=== PATIENT | male | born 1960 | race Caucasian/White ===

== ENCOUNTER 2018-09-16 09:23 | Inpatient (IN) | payer MEDICARE ==
--- NOTE | 2018-09-16 10:16 | ED Physician Chart ---
ED Chief Complaint/HPI - Patient Information Date Seen:: 09/16/18 Time Seen:: 09:40 Chief Complaint:: Fall History of Present Illness:: onset this morning of syncope resulting in a fall with pt admitting to hitting his head; no report of H/As, visual or gait changes, S/T, neck pain, C/P, SOB, Abd. Pain, A/N/V/D/C, fever, chills, bleeding, or urinary s/s; pt's last tetanus shot: < 5 years; UTD Allergies:: Allergies Allergy/AdvReac Type Severity Reaction Status Date / Time adhesive tape Allergy Verified 09/16/18 09:38 Vitals:: Vital Signs - 8 hr 09/16/18 09:38 Temp 98 F HR 70 RR 16 BP 115/72 O2 Sat % 93 Historian:: Patient, EMS Review:: Nurse's Note Reviewed, Old Chart Reviewed, EMS run form Reviewed ED Review of Systems - Review of Systems General/Constitutional: No fever, No chills, No weight loss, No weakness, No diaphoresis, No edema, No loss of appetite Skin: No skin lesions, No rash, No bruising Head: No headache, No light-headedness Eyes: No loss of vision, No pain, No diplopia ENT: No earache, No nasal drainage, No sore throat, No tinnitus Neck: No neck pain, No swelling, No thyromegaly, No stiffness, No mass noted Cardio Vascular: No chest pain, No palpitations, No PND, No orthopnea, No edema Pulmonary: No SOB, No cough, No sputum, No wheezing GI: No nausea, No vomiting, No diarrhea, No pain, No melena, No hematochezia, No constipation, No hematemesis G/U: No dysuria, No frequency, No hematuria, No nacturia Musculoskeletal: No bone or joint pain, No back pain, No muscle pain Endocrine: No polyuria, No polydipsia Psychiatric: Prior psych history, Depression, Anxiety, No suicidal ideation, No homicidal ideation, No auditory hallucination, No visual hallucination Hematopoietic: No bruising, No lymphadenopathy Allergic/Immuno: No urticaria, No angioedema Neurological: Syncope, No focal symptoms, No weakness, No paresthesia, No headache, Seizure, Dizziness, Confusion, Vertigo ED Past Medical History - Past Medical History Obtainable: Yes Past Medical History: HTN, Dyslipidemia, PUD/GERD, Seizures, Dementia, Other ( Brain Tumor) Family History: HTN Social History: Non Smoker, No Alcohol, No Drug Use, Single, Care Facility Surgical History: other (Brain Biopsy; Brain Surgery) Psychiatricy History: Bipolar, Dementia Medication: Reviewed Family Medical History - Family Member Mother Living Status: Other Medical History: lupus ED Physical Exam - Physical Examination General/Constitutional: Awake, Well-developed, well-nourished, Alert, No distress, GCS 15, Non-toxic appearing, Ambulatory Head: Atraumatic Eyes: Lids, conjuctiva normal, PERRL, EOMI Skin: Nl inspection, No rash, No skin lesions, No ecchymosis, Well hydrated, No lymphadenopathy ENMT: External ears, nose nl, TM canals nl, Nasal exam nl, Lips, teeth, gums nl , Oropharynx nl, Tonsils nl Neck: Nontender, Full ROM w/o pain, No JVD, No nuchal rigidity, No bruit, No mass, No stridor Respiratory: Nl effort/Exclusion, Clear to Auscultation, No Wheeze/Rhonchi/Rales Cardio Vascular: RRR, No murmur, gallop, rubs, NL S1 S2, Carotid/Femoral/Distal pulses equal bilaterally GI: No tenderness/rebounding/guarding, No organomegaly, No hernia, Normal BS's, Nondistended, No mass/bruits, No McBurney tenderness Other GI comments:: no pulsatile masses : No CVA tenderness Extremities: No tenderness or effusion, Full ROM, normal strength in all extremities, No edema, Normal digits & nails Neuro/Psych: Alert/oriented, DTR's symmetric, Normal sensory exam, Normal motor strength, Judgement/insight normal, Mood normal, Normal gait, No focal deficits Misc: Normal back, No paraspinal tenderness ED Labs/Radiology/EKG Results - Lab Results Comments:: Reviewed - Radiology Results Comments:: ? Brain Mass Effect - EKG Interpretations EKG Time:: 10:05 Rate & Rhythm: 64; NSR Comments:: non-specific st-t changes ED Septic Shock - . Is Septic Shock (SBP<90, OR Lactate>4 mmol\L) present?: No - <6hrs of presentation: Vital Signs: Vital Signs - 8 hr 09/16/18 09:38 Temp 98 F HR 70 RR 16 BP 115/72 O2 Sat % 93 ED Reassessment (Disposition) - Reassessment Reassessment Condition:: Improved - Diagnosis Diagnosis:: Syncope; Fall; Hyponatremia; Brain Cancer; Hypoalbuminemia; Dehydration; Intractable Pain; TIA; Cardiac Arrythmias; - Aftercare/Follow up Instructions Aftercare/Follow-Up Instructions:: Counseled pt regarding lab results/diagnosis & need follow up, Counseled pt & family regarding lab results/diagnosis & need follow up - Patient Disposition Discharge/Transfer:: Acute Care w/in this hosp Accepting Physician:: Dr. Ko Time Called:: 1130 Time Responded:: 11:30 Admitted to:: Telemetry Spoke to:: Dr. Ko Admitting Medical Physician:: Dr. Ko Condition at Disposition:: Stable, Improved
[2018-09-16 10:20] LABS: INR 0.95 (0.5-1.4); PROTHROMBIN TIME (TEST) 9.9 SECONDS (9.5-11.5)
[2018-09-16 10:24] LABS: ALB/GLOB RATIO 1.3 (1.0-1.8); ALBUMIN 3.8 gm/dL (4.2-5.5); ALKALINE PHOSPHATASE 62 U/L (34-104); ANION GAP 10.5 (7.0-16.0); BILIRUBIN,TOTAL 0.7 mg/dL (0.3-1.0); BUN - UREA NITROGEN 17 mg/dL (7-25); CALCIUM SERUM 9.7 mg/dL (8.6-10.3); CARBON DIOXIDE 23.7 mEq/L (21.0-31.0); CHLORIDE 105 mEq/L (98-107); CHOLESTEROL 152 mg/dL (<200); CREATININE - SERUM 0.8 mg/dL (0.7-1.3); CREATININE KINASE 18 U/L (30-223); GFR AFRICAN-AMERICAN > 60.0 ml/min (>90); GFR NON AFRICAN-AMERICAN > 60.0 ml/min; GLUCOSE 100 mg/dL (70-105); HDL -HIGH DENSITY LIPOPROTEIN 37 mg/dL (23-92); POTASSIUM SERUM 4.2 mEq/L (3.5-5.1); SGOT 10 U/L (13-39); SGPT/ALT 8 U/L (7-52); SODIUM SERUM 135 mEq/L (136-145); TOTAL PROTEIN,SERUM 6.7 gm/dL (6.0-8.3); TRIGLYCERIDES 156 mg/dL (<150)
[2018-09-16 10:46] LABS: % BASOPHILS 0.2 % (0.0-2.0); % EOSINOPHILS 4.3 % (0.0-5.0); % LYMPHOCYTES 16.3 % (20.0-50.0); % MONOCYTES 7.6 % (2.0-10.0); % NEUTROPHILS 71.6 % (40.0-80.0); EOSINOPHILE ABSOLUTE 0.3 Th/cmm (0.1-0.4); HEMATOCRIT 40.3 % (41.0-60); HEMOGLOBIN 13.3 gm/dL (12-16); LYMPHOCYTE ABSOLUTE 1.3 Th/cmm (1.5-3.0); MEAN CELL VOLUME 89.2 fl (80-99); MEAN CORPUSCULAR HEMOGLOBIN 29.5 pg (26.0-30.0); MEAN CORPUSCULAR HGB CONC 33.1 pg (28.0-36.0); MEAN PLATELET VOLUME 8.3 fl; MONOCYTE ABSOLUTE 0.6 Th/cmm (0.3-1.0); NEUTROPHILE ABSOLUTE 5.9 Th/cmm (1.8-8.0); PLATELET COUNT 260 Th/cmm (150-400); RED BLOOD COUNT 4.52 Mil/cmm (4.30-5.70); RED CELL DISTRIBUTION WIDTH 12.4 % (11.5-20.0); WHITE BLOOD COUNT 8.1 Th/cmm (4.8-10.8)
--- NOTE | 2018-09-16 10:51 | Diagnostic Imaging Report ---
CHEST X-RAY: AP view INDICATION: pain COMPARISON: None FINDINGS: Postsurgical changes of the right clavicle are noted. Additional old left clavicular fracture is noted. There are multiple old right rib fractures. No evidence of pneumothorax. The left costophrenic angle is incompletely visualized. Bibasal atelectasis is noted with no focal consolidation or effusions. Heart size normal. Atherosclerosis is noted. IMPRESSION: Bibasal atelectatic changes. No focal consolidation identified. Atherosclerotic vascular disease. Old traumatic changes as above. No evidence of pneumothorax.
--- NOTE | 2018-09-16 10:54 | Diagnostic Imaging Report ---
Head CT without intravenous contrast Indication: Trauma Comparison: None Technique: Axial images were obtained from the vertex to the skull base without IV contrast. Coronal reconstructions were made. Total DLP: 692, CTDI39.2 FINDINGS: Images of the brain obtained without contrast demonstrate large area of ill-defined edema throughout the right basal ganglia region extending to the right temporal region with low attenuation changes and marked compression of the right lateral ventricle and 4 mm right to left midline shift. No gross acute hemorrhage identified. There is evidence of previous right frontal craniotomy. No skull fracture or focal soft tissue swelling. IMPRESSION: Large low-attenuation seen throughout the right basal ganglia extending to right temporal region with associated mass effect and vasogenic edema. There is also compression of the third ventricle with 4 mm right to left midline shift. Additional postsurgical changes right frontal lobe are noted. Please correlate with patient's clinical and surgical history as this be due to underlying occult mass lesion, possible neoplasm. Other etiologies is an abscess is less likely but cannot be excluded. A recent infarction can also not be excluded. If no recent MRI has been performed for follow-up MRI without and with IV contrast is recommended for further assessment. No gross acute hemorrhage identified.
--- NOTE | 2018-09-16 10:58 | Diagnostic Imaging Report ---
CT cervical spine without IV contrast HISTORY: Trauma COMPARISON: None Technique: Axial images were obtained from the skull base to the upper thoracic spine without IV contrast. Multiplanar reconstructions were made. Total DLP: 754, CTDI31.1 FINDINGS: There is straightening of the cervical lordosis which may be due to positioning or muscle spasm. There is diffuse degenerative changes of the atlantodental articulation with an ossicle seen superiorly measuring 4 mm. There is subtle lucency seen along the anterior aspect of the dens inferior to the C1 arch probably related to degenerative etiology. A previous, possible chronic nondisplaced fractures less likely. Otherwise no acute fracture is identified. Moderate to advanced disc space loss of height of C5/C6 is seen and moderate disc space loss of height of C6/C7 is noted. No prevertebral soft tissue swelling. The visualized lung apices are clear. IMPRESSION: Slight irregularity along the anterior aspect of the dens inferior to the C1 arch probably related to degenerative or less likely traumatic, possibly old traumatic etiology. Please correlate with clinical findings and old exams. Otherwise no evidence of acute fracture or subluxation Degenerative changes as detailed above. Straightening of the cervical lordosis which may be due to positioning versus muscle spasm.
[2018-09-16] MEDS ORDERED: Hydrocodone/APAP 5mg/325mg Tab PO ONE (11:19)
[2018-09-16] MEDS ORDERED: APAP/Oxycodone 5/325mg Tab ONE (11:25)
[2018-09-16] MEDS ORDERED: Morphine Sulfate 2 mg/mL 1mL Syr IM PRN ×2 (18:04→18:05)
[2018-09-16 18:18] VITALS: BP 108/49
[2018-09-16] MEDS ORDERED: Morphine Sulfate 4 mg/mL 1mL Syr IVP PRN (19:23)
[2018-09-16] MEDS: Morphine Sulfate 4 mg/mL 1mL Syr IVP PRN (20:11)
[2018-09-16] MEDS ORDERED: HYPROMELLOSE OP PRN (22:41)
[2018-09-16] MEDS ORDERED: DEXTRAN OP PRN (22:41)
[2018-09-16] MEDS ORDERED: [UNRECOGNIZED DRUG - OTHER] OP PRN (22:41)
[2018-09-16] MEDS ORDERED: BISACODYL 10 MG RC PRN (22:41)
--- NOTE | 2018-09-16 22:58 | History & Physical ---
ADMIT DATE: 09/16/2018 HISTORY OF PRESENT ILLNESS: The patient was admitted today with a history of onset of syncope, history of fall, hitting his head. Reported no headache, no fever, no chills, no rigors. His chart was reviewed. Head examination normal. History of hypertension, diabetes, history of hyperlipidemia, seizure, dementia, brain tumor. Biopsies, no results yet. PHYSICAL EXAMINATION: GENERAL: The patient awake, alert, well-developed, well-nourished male patient. VITAL SIGNS: Noted. HEAD: Normal. ENT: Normal. NECK: Supple, nontender. LUNGS: Clear. CARDIOVASCULAR SYSTEM: S1, S2 heard. ABDOMEN: Soft. CAT scan shows mass effect. DIAGNOSES: Brain tumor with mass effect, syncopal episode, rule out cardiac arrhythmia, history of hypertension, history of hyperlipidemia and history of seizures, history of dementia, peptic ulcer disease. PLAN: The patient will be admitted and I will go ahead and treat his hyponatremia, hypoalbuminemia and dehydration and will have neurologist, Dr. Costello see the patient and also have Dr. Donohue see the patient and I will follow the patient closely. JOB# [id number]
[2018-09-17] MEDS: Morphine Sulfate 4 mg/mL 1mL Syr IVP PRN ×3 (00:18→10:36)
[2018-09-17 06:23] LABS: % BASOPHILS 0.4 % (0.0-2.0); % EOSINOPHILS 4.7 % (0.0-5.0); % LYMPHOCYTES 18.5 % (20.0-50.0); % MONOCYTES 8.2 % (2.0-10.0); % NEUTROPHILS 68.2 % (40.0-80.0); EOSINOPHILE ABSOLUTE 0.5 Th/cmm (0.1-0.4); HEMOGLOBIN 13.8 gm/dL (12-16); LYMPHOCYTE ABSOLUTE 1.9 Th/cmm (1.5-3.0); MEAN CELL VOLUME 88.8 fl (80-99); MEAN CORPUSCULAR HEMOGLOBIN 29.8 pg (26.0-30.0); MEAN CORPUSCULAR HGB CONC 33.5 pg (28.0-36.0); MONOCYTE ABSOLUTE 0.8 Th/cmm (0.3-1.0); NEUTROPHILE ABSOLUTE 6.9 Th/cmm (1.8-8.0); PLATELET COUNT 288 Th/cmm (150-400); RED BLOOD COUNT 4.62 Mil/cmm (4.30-5.70); RED CELL DISTRIBUTION WIDTH 12.4 % (11.5-20.0); WHITE BLOOD COUNT 10.1 Th/cmm (4.8-10.8)
[2018-09-17 06:37] LABS: BUN - UREA NITROGEN 17 mg/dL (7-25); CALCIUM SERUM 9.8 mg/dL (8.6-10.3); CARBON DIOXIDE 24.9 mEq/L (21.0-31.0); CHLORIDE 103 mEq/L (98-107); CREATININE - SERUM 0.7 mg/dL (0.7-1.3); GFR AFRICAN-AMERICAN > 60.0 ml/min (>90); GFR NON AFRICAN-AMERICAN > 60.0 ml/min; GLUCOSE 109 mg/dL (70-105); POTASSIUM SERUM 3.9 mEq/L (3.5-5.1); SODIUM SERUM 137 mEq/L (136-145)
[2018-09-17] MEDS ORDERED: Influenza Vaccine (5 yr & older) 0.5 ml Syr IM ONE (09:00)
[2018-09-17] MEDS ORDERED: CYCLOBENZAPRINE HCL 10 MG PO SCH (09:00)
[2018-09-17] MEDS ORDERED: Pneumococcal Vaccine 0.5 mL Vial IM ONE (09:00)
[2018-09-17] MEDS: Dexamethasone Sodium Phos 4 mg/mL Vial IVP SCH ×3 (12:47→23:27)
--- NOTE | 2018-09-17 13:35 | History & Physical ---
ADMIT DATE: 09/17/2018 HEMATOLOGY/ONCOLOGY CONSULTATION REFERRED BY: Dr. Ko. REASON FOR CONSULTATION: Brain tumor. HISTORY OF PRESENT ILLNESS: The patient is a 57-year-old male who suffered a fall and presented to the Emergency Room. CT scan of the head showed large low attenuation area throughout the basal ganglia with right to left midline shift raising suspicion of underlying tumor. Apparently, the patient was diagnosed with a brain tumor around after he suffered left-sided weakness and imaging confirmed the presence of brain tumor. He underwent biopsy from brain tumor about 8 days ago in [place] and they came over to [facility] after that. The pathology from the biopsy is not available. PAST MEDICAL HISTORY: Hypertension, diabetes, dyslipidemia, seizure, psych disorder. PAST SURGICAL HISTORY: Low back surgery. MEDICATIONS: Reviewed. He is currently on Flexeril, Depakote, lithium, morphine, Zofran, and oral Decadron. FAMILY HISTORY: No malignancy. PHYSICAL EXAMINATION: GENERAL: The patient is awake and alert. VITAL SIGNS: Stable. HEENT: Left facial weakness. NECK: No lymphadenopathy. CHEST: Good air entry bilaterally. ABDOMEN: Soft. No palpable masses. EXTREMITIES: Weakness in both left upper and left lower extremity. NERVOUS SYSTEM: Left upper extremity, unable to move at all. Left lower extremity, muscle strength 3/5 with good muscle strength in the right side. LABORATORY DATA: Creatinine 0.7. Liver functions normal. CBC and coagulation panel unremarkable. CT scan of the head as mentioned above. ASSESSMENT: Brain tumor with midline shift. I will change the Decadron to IV every [address] scan of the chest, abdomen and pelvis looking for possible primary lesion and the pathology from [place] on brain tumor biopsy will be retrieved before further decisions. The patient will be seen by the neurologist and he may need an MRI of the brain. Thank you Dr. Ko for the opportunity to participate in the care of this interesting case. JOB# [id number]
[2018-09-17] MEDS ORDERED: IOHEXOL 300mgI/mL 100 ML VIAL IVP ONE (14:22)
--- NOTE | 2018-09-17 15:19 | Consultation ---
DATE OF CONSULTATION: 09/17/[address] Ko. HISTORY OF PRESENT ILLNESS: This 57-year-old male patient who had a fall. Following this, the patient was brought to the Emergency Room with syncope. The patient had a CT scan. The patient was found to have brain tumor. Following this, the patient is admitted. PAST MEDICAL HISTORY: CVA with left-sided weakness, brain tumor, biopsy done report not available, hypertension, diabetes mellitus type 2, hyperlipidemia, seizure disorder, and syncope. FAMILY HISTORY: Unremarkable. SOCIAL HISTORY: No history of smoking, alcohol abuse. ALLERGIES: None. PHYSICAL EXAMINATION: VITAL SIGNS: Blood pressure 130/80, pulse 70, and respirations 20. HEAD: Normocephalic. No lumps or bumps. EYES: Pupils equal, reactive to light. Fundi show AV nicking, sclerae white, conjunctivae pink. NECK: Carotid 2+. Normal upstroke. JVD flat. Thyroid not palpable. Lymph nodes not palpable. CHEST: Shows increased AP diameter. No kyphosis, scoliosis. LUNGS: Bilateral bronchovesicular breath sounds. HEART: PMI fifth intercostal space with lateral to midclavicular line. S1, S2. No S3, S4. CENTRAL NERVOUS SYSTEM: The patient has left hemiplegia. CLINICAL IMPRESSION: Syncope, etiology unknown; brain tumor with left side hemiplegia; hypertension; diabetes mellitus type 2; hyperlipidemia; and seizure disorder. PLAN: Admit the patient. We will repeat CT scan. Have Oncology evaluation. JOB# [id number]
[2018-09-17] MEDS: Morphine Sulfate 2 mg/mL 1mL Syr IVP PRN ×2 (16:05→21:03)
[2018-09-18] MEDS: Morphine Sulfate 2 mg/mL 1mL Syr IVP PRN ×5 (02:36→21:48)
[2018-09-18] MEDS: Dexamethasone Sodium Phos 4 mg/mL Vial IVP SCH ×3 (05:25→17:36)
[2018-09-18] MEDS ORDERED: IOHEXOL 300mgI/mL 100 ML VIAL ONE (09:58)
--- NOTE | 2018-09-18 12:55 | Diagnostic Imaging Report ---
CT scan of the chest with intravenous contrast HISTORY: Neoplasm, metastatic disease Total DLP equals 333 CTDI equals 8.7 Following administration of intravenous contrast, axial sections were obtained from a level above the clavicles down to level below the diaphragm. The heart size is normal. No abnormal mediastinal masses are seen. No abnormal hilar masses. No abnormal focal pulmonary parenchymal masses or nodules. Mild nonspecific linear densities noted in the lower lobes most likely related to scarring. Minimal pleural thickening is noted in the right and left lower hemithoracic areas. No free pleural fluid. Surgical changes noted about the right clavicle. IMPRESSION: 1. No acute abnormalities 2. No evidence of metastatic disease.
--- NOTE | 2018-09-18 12:57 | Diagnostic Imaging Report ---
CT scan abdomen and pelvis with intravenous contrast HISTORY: Neoplasm, metastatic disease Total DLP equals 905 CTDI equals 13.6 Following administration of intravenous contrast, axial sections were obtained from the xiphoid process down to the pubic symphysis. The liver exhibits a normal size with a homogeneous parenchyma. No focal lesions. The spleen appears normal. No focal abnormality seen within the pancreas. No significant focal renal lesions. The adrenal glands appear normal bilaterally. The exam of the pelvis is compromised due to extensive artifact associated with metallic surgical hardware within the lumbar spine. No definite abnormal masses or abnormal fluid collections. Artifact associated with the left hip arthroplasty also noted. IMPRESSION: 1. Somewhat limited exam due to artifact associated with surgical hardware within the lumbar spine and a left hip arthroplasty 2. No acute abnormalities 3. No abnormal soft tissue masses or other evidence of neoplastic involvement.
--- NOTE | 2018-09-18 15:18 | Internal Medicine Prog Note ---
Internal Medicine Subjective - Subjective Patient seen and examined:: chart reviewed Patient is:: other (awake , patient found to have a brain tumor) Internal Medicine Objective - Results Result Diagrams: 09/17/18 06:00 09/17/18 06:00 Recent Labs: Laboratory Last Values WBC 10.1 Th/cmm (4.8-10.8) 09/17/18 06:00 RBC 4.62 Mil/cmm (4.30-5.70) 09/17/18 06:00 Hgb 13.8 gm/dL (12-16) 09/17/18 06:00 Hct 41.0 % (41.0-60) 09/17/18 06:00 MCV 88.8 fl (80-99) 09/17/18 06:00 MCH 29.8 pg (26.0-30.0) 09/17/18 06:00 MCHC Differential 33.5 pg (28.0-36.0) 09/17/18 06:00 RDW 12.4 % (11.5-20.0) 09/17/18 06:00 Plt Count 288 Th/cmm (150-400) 09/17/18 06:00 MPV 8.0 fl 09/17/18 06:00 Neutrophils % 68.2 % (40.0-80.0) 09/17/18 06:00 Lymphocytes % 18.5 % (20.0-50.0) L 09/17/18 06:00 Monocytes % 8.2 % (2.0-10.0) 09/17/18 06:00 Eosinophils % 4.7 % (0.0-5.0) 09/17/18 06:00 Basophils % 0.4 % (0.0-2.0) 09/17/18 06:00 PT 9.9 SECONDS (9.5-11.5) 09/16/18 10:00 INR 0.95 (0.5-1.4) 09/16/18 10:00 Sodium 137 mEq/L (136-145) 09/17/18 06:00 Potassium 3.9 mEq/L (3.5-5.1) 09/17/18 06:00 Chloride 103 mEq/L (98-107) 09/17/18 06:00 Carbon Dioxide 24.9 mEq/L (21.0-31.0) 09/17/18 06:00 Anion Gap 13.0 (7.0-16.0) 09/17/18 06:00 BUN 17 mg/dL (7-25) 09/17/18 06:00 Creatinine 0.7 mg/dL (0.7-1.3) 09/17/18 06:00 Est GFR ( Amer) > 60.0 ml/min (>90) 09/17/18 06:00 Est GFR (Non-Af Amer) > 60.0 ml/min 09/17/18 06:00 BUN/Creatinine Ratio 24.3 09/17/18 06:00 Glucose 109 mg/dL (70-105) H 09/17/18 06:00 Calcium 9.8 mg/dL (8.6-10.3) 09/17/18 06:00 Total Bilirubin 0.7 mg/dL (0.3-1.0) 09/16/18 10:00 AST 10 U/L (13-39) L 09/16/18 10:00 ALT 8 U/L (7-52) 09/16/18 10:00 Alkaline Phosphatase 62 U/L (34-104) 09/16/18 10:00 Creatine Kinase 18 U/L (30-223) L 09/16/18 10:00 Troponin I 0.01 ng/mL (0.01-0.05) 09/16/18 10:00 B-Natriuretic Peptide 5.2 pg/mL (5.0-100.0) 09/16/18 10:00 Total Protein 6.7 gm/dL (6.0-8.3) 09/16/18 10:00 Albumin 3.8 gm/dL (4.2-5.5) L 09/16/18 10:00 Globulin 2.9 gm/dL 09/16/18 10:00 Albumin/Globulin Ratio 1.3 (1.0-1.8) 09/16/18 10:00 Triglycerides 156 mg/dL (<150) H 09/16/18 10:00 Cholesterol 152 mg/dL (<200) 09/16/18 10:00 LDL Cholesterol Direct 96 mg/dL (75-193) 09/16/18 10:00 HDL Cholesterol 37 mg/dL (23-92) 09/16/18 10:00 Valproic Acid < 10.0 ug/mL (50.0-100.0) L 09/16/18 10:00 - Physical Exam Vitals and I&O: Vital Signs Temp 97.8 F 09/18/18 12:00 Pulse 75 09/18/18 12:00 Resp 20 09/18/18 12:00 BP 130/75 09/18/18 12:00 Pulse Ox 97 09/18/18 12:00 Intake & Output 09/17/18 09/18/18 09/18/18 18:59 06:59 18:59 Intake Total 800 500 Balance 800 500 Weight (lbs) 84.368 kg 84.368 kg Intake: Oral 800 500 Other: # Voids 3 2 # Bowel Movements 0 0 Weight Source Bedscale Bedscale Active Medications: Current Medications Aripiprazole (Abilify) 10 mg PO HS [facility]; Protocol Stop: 11/17/18 20:59 Bisacodyl (Dulcolax 10 Mg Supp) 10 mg RC DAILY PRN PRN Reason: Constipation Stop: 11/16/18 07:46 Cyclobenzaprine HCl (Flexeril) 10 mg PO TID [facility] Stop: 11/16/18 08:59 Last Admin: 09/18/18 14:17 Dose: 10 mg Dexamethasone Sodium Phosphate (Decadron) 4 mg IVP Q6HR [facility] Stop: 11/16/18 11:59 Last Admin: 09/18/18 12:48 Dose: 4 mg Divalproex Sodium (Depakote Er) 1,500 mg PO HS [facility]; Protocol Stop: 11/15/18 21:49 Last Admin: 09/17/18 21:02 Dose: 1,500 mg Levetiracetam (Keppra) 500 mg PO BID [facility] Stop: 11/17/18 08:59 Last Admin: 09/18/18 08:41 Dose: 500 mg [place] Carbonate (Eskalith) 600 mg PO HS [facility]; Protocol Stop: 11/15/18 21:59 Last Admin: 09/17/18 21:02 Dose: 600 mg Morphine Sulfate (Morphine) 2 mg IVP Q4HR PRN PRN Reason: Pain (Severe) Stop: 11/15/18 18:04 Last Admin: 09/18/18 12:49 Dose: 2 mg Morphine Sulfate (Morphine) 1 mg IVP Q4HR PRN PRN Reason: Pain (Moderate) Stop: 11/15/18 18:03 Ondansetron HCl (Zofran) 4 mg IV Q6H PRN PRN Reason: Nausea / Vomiting Stop: 11/15/18 18:05 Pneumococcal Polyvalent Vaccine (Pneumovax) 0.5 ml IM .ONCE ONE Stop: 09/19/18 09:01 Temazepam (Restoril) 15 mg PO HS PRN; Protocol PRN Reason: Insomnia Stop: 11/16/18 11:11 Last Admin: 09/17/18 23:27 Dose: 15 mg General: alert HEENT: NC/AT Neck: Supple Lungs: CTAB Cardiovascular: RRR, Normal S1, Normal S2 Abdomen: soft, non-tender Extremities: clear Neurological: no change Internal Medicine Assmt/Plan - Assessment Assessment: brain tumor with mass effect syncopal episode h/o htn h/o hyperlipidemia h/o seizures h/o dementia h/o peptic ulcer disease - Plan Plan: as per order sheet
--- NOTE | 2018-09-18 15:20 | Consultation ---
DATE OF CONSULTATION: 09/17/2018 HISTORY OF PRESENT ILLNESS: The patient is a 57-year-old, in a [facility], apparently had episode of syncope. He was brought to the Emergency Room to be admitted. The patient gives a history that he is from [place]. There, the patient had weakness in left arm and leg, more in the arm. Workup showed that he had a mass in the right side. Biopsy was done and does not know what the biopsy showed. The patient then came down here. PAST MEDICAL HISTORY: Hypertension, dyslipidemia, questionable brain tumor, seizures. The patient on medication. No seizures while here. History of bipolar. PAST SURGICAL HISTORY: The patient had biopsy of the brain. The patient had no other recent surgery. MEDICATIONS: Flexeril, Depakote 1500 at bedtime, lithium, morphine, temazepam, and had been on Decadron, held. REVIEW OF SYSTEMS: A 12-point negative except for above. PHYSICAL EXAMINATION: VITAL SIGNS: Temperature 97.9, blood pressure 110/65, and pulse is 60. NECK: Supple. No bruits. HEART: Sounds S1, S2. LUNGS: Clear. NEUROLOGIC: The patient is lying in bed. He is awake, alert, yet he answers questions. His speech is slightly dysarthric. He has a left visual field defect, left-sided facial weakness. MOTOR: Really no movement of the left arm. He will move the left leg, but weaker than the right. Reflexes reduced in the left. The patient has previous back surgery scar. INVESTIGATIONS: CT scan of the head shows abnormality in the right basal ganglia, right temporal region with edema. Compression of the third ventricle with 4 mm right to left shift. The patient's CT scan of the cervical spine, abnormality along the anterior aspect of the dense inferior to the C1 arch. No definite fracture, but cannot rule out, will need an MRI. LABORATORY DATA: WBC 10.1, hemoglobin 13.8, and platelets normal. Glucose 109. IMPRESSION: 1. Fall, syncope, no definite seizure. The patient has risk of seizure. 2. Brain tumor, etiology unknown. Need to get biopsy from [place]. 3. Normal spine CT. 4. History of hypertension. 5. Diabetes. 6. Dyslipidemia. 7. History of seizure. 8. Bipolar disorder. 9. Previous back surgery. PLAN: IV Decadron 4 mg q. 8 hours . The patient's MRI brain with contrast. MRI cervical spine. The patient needs to be transferred to the facility, where the patient will have neurosurgical services. JOB# [id number]
--- NOTE | 2018-09-18 15:28 | General Progress Note ---
Subjective - Review of Systems Service Date: 09/18/18 Subjective: NO SZ . headache unchanged Objective - Results Result Diagrams: 09/17/18 06:00 09/17/18 06:00 Recent Labs: Laboratory Last Values WBC 10.1 Th/cmm (4.8-10.8) 09/17/18 06:00 RBC 4.62 Mil/cmm (4.30-5.70) 09/17/18 06:00 Hgb 13.8 gm/dL (12-16) 09/17/18 06:00 Hct 41.0 % (41.0-60) 09/17/18 06:00 MCV 88.8 fl (80-99) 09/17/18 06:00 MCH 29.8 pg (26.0-30.0) 09/17/18 06:00 MCHC Differential 33.5 pg (28.0-36.0) 09/17/18 06:00 RDW 12.4 % (11.5-20.0) 09/17/18 06:00 Plt Count 288 Th/cmm (150-400) 09/17/18 06:00 MPV 8.0 fl 09/17/18 06:00 Neutrophils % 68.2 % (40.0-80.0) 09/17/18 06:00 Lymphocytes % 18.5 % (20.0-50.0) L 09/17/18 06:00 Monocytes % 8.2 % (2.0-10.0) 09/17/18 06:00 Eosinophils % 4.7 % (0.0-5.0) 09/17/18 06:00 Basophils % 0.4 % (0.0-2.0) 09/17/18 06:00 PT 9.9 SECONDS (9.5-11.5) 09/16/18 10:00 INR 0.95 (0.5-1.4) 09/16/18 10:00 Sodium 137 mEq/L (136-145) 09/17/18 06:00 Potassium 3.9 mEq/L (3.5-5.1) 09/17/18 06:00 Chloride 103 mEq/L (98-107) 09/17/18 06:00 Carbon Dioxide 24.9 mEq/L (21.0-31.0) 09/17/18 06:00 Anion Gap 13.0 (7.0-16.0) 09/17/18 06:00 BUN 17 mg/dL (7-25) 09/17/18 06:00 Creatinine 0.7 mg/dL (0.7-1.3) 09/17/18 06:00 Est GFR ( Amer) > 60.0 ml/min (>90) 09/17/18 06:00 Est GFR (Non-Af Amer) > 60.0 ml/min 09/17/18 06:00 BUN/Creatinine Ratio 24.3 09/17/18 06:00 Glucose 109 mg/dL (70-105) H 09/17/18 06:00 Calcium 9.8 mg/dL (8.6-10.3) 09/17/18 06:00 Total Bilirubin 0.7 mg/dL (0.3-1.0) 09/16/18 10:00 AST 10 U/L (13-39) L 09/16/18 10:00 ALT 8 U/L (7-52) 09/16/18 10:00 Alkaline Phosphatase 62 U/L (34-104) 09/16/18 10:00 Creatine Kinase 18 U/L (30-223) L 09/16/18 10:00 Troponin I 0.01 ng/mL (0.01-0.05) 09/16/18 10:00 B-Natriuretic Peptide 5.2 pg/mL (5.0-100.0) 09/16/18 10:00 Total Protein 6.7 gm/dL (6.0-8.3) 09/16/18 10:00 Albumin 3.8 gm/dL (4.2-5.5) L 09/16/18 10:00 Globulin 2.9 gm/dL 09/16/18 10:00 Albumin/Globulin Ratio 1.3 (1.0-1.8) 09/16/18 10:00 Triglycerides 156 mg/dL (<150) H 09/16/18 10:00 Cholesterol 152 mg/dL (<200) 09/16/18 10:00 LDL Cholesterol Direct 96 mg/dL (75-193) 09/16/18 10:00 HDL Cholesterol 37 mg/dL (23-92) 09/16/18 10:00 Valproic Acid < 10.0 ug/mL (50.0-100.0) L 09/16/18 10:00 - Physical Exam Vitals and I&O: Vital Signs Temp 97.8 F 09/18/18 12:00 Pulse 75 09/18/18 12:00 Resp 20 09/18/18 12:00 BP 130/75 09/18/18 12:00 Pulse Ox 97 09/18/18 12:00 Intake & Output 09/17/18 09/18/18 09/18/18 18:59 06:59 18:59 Intake Total 800 500 Balance 800 500 Weight (lbs) 84.368 kg 84.368 kg Intake: Oral 800 500 Other: # Voids 3 2 # Bowel Movements 0 0 Weight Source Bedscale Bedscale Active Medications: Current Medications Aripiprazole (Abilify) 10 mg PO HS [facility]; Protocol Stop: 11/17/18 20:59 Bisacodyl (Dulcolax 10 Mg Supp) 10 mg RC DAILY PRN PRN Reason: Constipation Stop: 11/16/18 07:46 Cyclobenzaprine HCl (Flexeril) 10 mg PO TID [facility] Stop: 11/16/18 08:59 Last Admin: 09/18/18 14:17 Dose: 10 mg Dexamethasone Sodium Phosphate (Decadron) 4 mg IVP Q6HR [facility] Stop: 11/16/18 11:59 Last Admin: 09/18/18 12:48 Dose: 4 mg Divalproex Sodium (Depakote Er) 1,500 mg PO HS [facility]; Protocol Stop: 11/15/18 21:49 Last Admin: 09/17/18 21:02 Dose: 1,500 mg Levetiracetam (Keppra) 500 mg PO BID [facility] Stop: 11/17/18 08:59 Last Admin: 09/18/18 08:41 Dose: 500 mg [place] Carbonate (Eskalith) 600 mg PO HS [facility]; Protocol Stop: 11/15/18 21:59 Last Admin: 09/17/18 21:02 Dose: 600 mg Morphine Sulfate (Morphine) 2 mg IVP Q4HR PRN PRN Reason: Pain (Severe) Stop: 11/15/18 18:04 Last Admin: 09/18/18 12:49 Dose: 2 mg Morphine Sulfate (Morphine) 1 mg IVP Q4HR PRN PRN Reason: Pain (Moderate) Stop: 11/15/18 18:03 Ondansetron HCl (Zofran) 4 mg IV Q6H PRN PRN Reason: Nausea / Vomiting Stop: 11/15/18 18:05 Pneumococcal Polyvalent Vaccine (Pneumovax) 0.5 ml IM .ONCE ONE Stop: 09/19/18 09:01 Temazepam (Restoril) 15 mg PO HS PRN; Protocol PRN Reason: Insomnia Stop: 11/16/18 11:11 Last Admin: 09/17/18 23:27 Dose: 15 mg General: Alert HEENT: Atraumatic Neck: Supple Cardiovascular: Normal S1 Lungs: Clear to auscultation Neurological: Other (left hemiplegia) Assessment/Plan - Assessment Assessment: * Brain tumor with no evidence of mets on CT chest/abd/pelvis. * awaiting path report from [facility] on brain tumor biopsy Follow neuro recs and continue decadron
--- NOTE | 2018-09-18 19:33 | Cardiology ---
09/17/[address] Ko. PROCEDURE: Echocardiogram. M-MODE ECHOCARDIOGRAM: Mitral valve, anterior leaflet of mitral valve shows normal excursion, EF velocity. Posterior leaflet of the mitral valve shows normal excursion. Left ventricular posterior wall shows increased thickness, normal excursion. Interventricular septum shows increased thickness, normal excursion, hypertrophy of the left ventricle, ejection fraction 65%. Left atrium normal. Aortic root shows normal dimension, normal excursion of aortic leaflets. CONCLUSION: Hypertrophy of the left ventricle, ejection fraction 65%. 2D ECHO: Long axis view showed normal sized left ventricle with hypertrophy of the left ventricle. Left atrium normal. Aortic root shows normal dimension, normal excursion of aortic leaflets. Short axis view of mitral valve normal. Short axis view of aortic valve normal. Apical four chamber view showed normal sized left ventricle, left atrium, right ventricle, right atrium, tricuspid and mitral valve. Ejection fraction 65%. CONCLUSION: The 2D shows hypertrophy of the left ventricle, ejection fraction 65%. Doppler study shows trace mitral regurgitation, mild tricuspid regurgitation, right ventricular systolic pressure 28 mmHg. JOB# [id number]
[2018-09-19] MEDS: Dexamethasone Sodium Phos 4 mg/mL Vial IVP SCH ×4 (00:32→17:28)
--- NOTE | 2018-09-19 01:39 | Consultation ---
DATE OF CONSULTATION: 09/18/2018 IDENTIFYING INFORMATION: The patient is a 57-year-old male. REASON FOR CONSULTATION: I was asked to see this patient who has a history of bipolar disorder. When I talked to him, he reported he is hearing voices. He reports he has bipolar disorder, rapid cycling with psychosis. He reports since he was seen back in 1992, he has been hospitalized once last in 2017. He denies prior suicide attempt. He hears voices telling him he is not good. No command hallucinations. He has not been sleeping well. Appetite is okay. He denies any intent to harm himself or anybody. The patient was diagnosed with brain tumor with metastasis. The patient was unable to tell me the date. He believed this is 10/08/2018. PAST PSYCHIATRIC HISTORY: Bipolar disorder, rapid cycling with psychosis. He sees a psychiatrist on a regular basis at least once a week by his report. He denies prior suicide attempt. Hospitalized only once. MEDICAL HISTORY: The patient is with a brain tumor. He has a history of syncope and fall, hit his head. He has diabetes, hypertension, hyperlipidemia, seizure disorder, dementia, brain tumor. ALLERGIES: THE PATIENT IS ALLERGIC TO ADHESIVE TAPES. MEDICATIONS: The patient has been on Depakote 1500 mg at bedtime, lithium 600 mg at bedtime and temazepam 15 mg at bedtime as needed. FAMILY AND SOCIAL HISTORY: The patient reported that he is in 2008. He has two girls, ages 29, 26. 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 He has 12th grade education. Denies any current substance abuse. MENTAL STATUS EXAMINATION: The patient is appropriately dressed, not well groomed. He was in bed. He was alert. He believes this is 10/08/2018. He knows he is here because of his brain tumor. He hears voices telling him he is no good. No command hallucination. Denies any current intent to harm himself or anybody. He said that he has not been sleeping well. Appetite is okay. He seems to have average intelligence. He is not sure of the date. He knew he was in the hospital. He said he came from [place], currently lives at [facility]. His insight about his illness is fair. He knows he has a problem, not his diagnosis. His judgment is poor because of psychosis. IMPRESSION: Bipolar disorder with psychosis. MEDICAL DIAGNOSES: As per medical doctor. PLAN/RECOMMENDATIONS: I added Rosy. Discussed side effects. The patient may need to go to [facility] if he continues to be psychotic. Thank you very much for allowing me to participate in the care of this most interesting gentleman. JOB# [id number]
[2018-09-19] MEDS: Morphine Sulfate 2 mg/mL 1mL Syr IVP PRN ×6 (05:54→20:44)
--- NOTE | 2018-09-19 06:18 | Progress Notes ---
DATE: 09/18/2018 SUBJECTIVE: The patient is in bed, awake, alert, on the phone. Discussed with his daughter. The patient's left side same. Otherwise, speech okay. The patient coherent. MEDICATIONS: Decadron 4 mg q. 6 hours. OBJECTIVE: VITAL SIGNS: Temperature 97.9, blood pressure 119/70, pulse is 60. NECK: Supple, no bruits. NEUROLOGIC: The patient is awake, alert. Answering questions. EXTREMITIES: Left arm weakness. Moving the left leg somewhat more. INVESTIGATION: MRI brain, MRI cervical spine pending. ASSESSMENT: 1. Brain tumor. Discussed with daughter. Biopsy is still not available. 2. History of diabetes. 3. Hypertension. 4. Hyperlipidemia. 5. History of psychiatric disorder. The patient seen by Psychiatry. 6. Continue Decadron. Await MRI reports. JOB# [id number]
[2018-09-19] MEDS: Pneumococcal Vaccine 0.5 mL Vial IM ONE ×2 (08:46→09:00)
[2018-09-19] MEDS ORDERED: Influenza Vaccine (5 yr & older) 0.5 ml Syr IM ONE (09:00)
--- NOTE | 2018-09-19 13:33 | General Progress Note ---
Subjective - Review of Systems Events since last encounter: patient with brain tumor patient is eating better sleeping better Objective - Results Result Diagrams: 09/24/18 06:26 09/24/18 06:26 Recent Labs: Laboratory Last Values WBC 10.1 Th/cmm (4.8-10.8) 09/17/18 06:00 RBC 4.62 Mil/cmm (4.30-5.70) 09/17/18 06:00 Hgb 13.8 gm/dL (12-16) 09/17/18 06:00 Hct 41.0 % (41.0-60) 09/17/18 06:00 MCV 88.8 fl (80-99) 09/17/18 06:00 MCH 29.8 pg (26.0-30.0) 09/17/18 06:00 MCHC Differential 33.5 pg (28.0-36.0) 09/17/18 06:00 RDW 12.4 % (11.5-20.0) 09/17/18 06:00 Plt Count 288 Th/cmm (150-400) 09/17/18 06:00 MPV 8.0 fl 09/17/18 06:00 Neutrophils % 68.2 % (40.0-80.0) 09/17/18 06:00 Lymphocytes % 18.5 % (20.0-50.0) L 09/17/18 06:00 Monocytes % 8.2 % (2.0-10.0) 09/17/18 06:00 Eosinophils % 4.7 % (0.0-5.0) 09/17/18 06:00 Basophils % 0.4 % (0.0-2.0) 09/17/18 06:00 PT 9.9 SECONDS (9.5-11.5) 09/16/18 10:00 INR 0.95 (0.5-1.4) 09/16/18 10:00 Sodium 137 mEq/L (136-145) 09/17/18 06:00 Potassium 3.9 mEq/L (3.5-5.1) 09/17/18 06:00 Chloride 103 mEq/L (98-107) 09/17/18 06:00 Carbon Dioxide 24.9 mEq/L (21.0-31.0) 09/17/18 06:00 Anion Gap 13.0 (7.0-16.0) 09/17/18 06:00 BUN 17 mg/dL (7-25) 09/17/18 06:00 Creatinine 0.7 mg/dL (0.7-1.3) 09/17/18 06:00 Est GFR ( Amer) > 60.0 ml/min (>90) 09/17/18 06:00 Est GFR (Non-Af Amer) > 60.0 ml/min 09/17/18 06:00 BUN/Creatinine Ratio 24.3 09/17/18 06:00 Glucose 109 mg/dL (70-105) H 09/17/18 06:00 Calcium 9.8 mg/dL (8.6-10.3) 09/17/18 06:00 Total Bilirubin 0.7 mg/dL (0.3-1.0) 09/16/18 10:00 AST 10 U/L (13-39) L 09/16/18 10:00 ALT 8 U/L (7-52) 09/16/18 10:00 Alkaline Phosphatase 62 U/L (34-104) 09/16/18 10:00 Creatine Kinase 18 U/L (30-223) L 09/16/18 10:00 Troponin I 0.01 ng/mL (0.01-0.05) 09/16/18 10:00 B-Natriuretic Peptide 5.2 pg/mL (5.0-100.0) 09/16/18 10:00 Total Protein 6.7 gm/dL (6.0-8.3) 09/16/18 10:00 Albumin 3.8 gm/dL (4.2-5.5) L 09/16/18 10:00 Globulin 2.9 gm/dL 09/16/18 10:00 Albumin/Globulin Ratio 1.3 (1.0-1.8) 09/16/18 10:00 Triglycerides 156 mg/dL (<150) H 09/16/18 10:00 Cholesterol 152 mg/dL (<200) 09/16/18 10:00 LDL Cholesterol Direct 96 mg/dL (75-193) 09/16/18 10:00 HDL Cholesterol 37 mg/dL (23-92) 09/16/18 10:00 Valproic Acid < 10.0 ug/mL (50.0-100.0) L 09/16/18 10:00 - Physical Exam Vitals and I&O: Vital Signs Temp 98.1 F 09/19/18 11:39 Pulse 59 09/19/18 11:39 Resp 18 09/19/18 11:39 BP 116/52 09/19/18 11:39 Pulse Ox 95 09/19/18 11:39 Intake & Output 09/18/18 09/19/18 09/19/18 18:59 06:59 18:59 Intake Total 800 700 300 Balance 800 700 300 Weight (lbs) 84.368 kg 84.368 kg 84.368 kg Intake: Oral 800 700 300 Other: # Voids 2 3 # Bowel Movements 0 0 0 Weight Source Bedscale Bedscale Bedscale Active Medications: Current Medications Bisacodyl (Dulcolax 10 Mg Supp) 10 mg RC DAILY PRN PRN Reason: Constipation Stop: 11/16/18 07:46 Cyclobenzaprine HCl (Flexeril) 10 mg PO TID [facility] Stop: 11/16/18 08:59 Last Admin: 09/19/18 08:45 Dose: 10 mg Dexamethasone Sodium Phosphate (Decadron) 4 mg IVP Q6HR [facility] Stop: 11/16/18 11:59 Last Admin: 09/19/18 12:20 Dose: 4 mg Divalproex Sodium (Depakote Er) 1,[address] [facility]; Protocol Stop: 11/15/18 21:49 Last Admin: 09/18/18 21:47 Dose: 1,500 mg Levetiracetam (Keppra) 500 mg PO BID [facility] Stop: 11/17/18 08:59 Last Admin: 09/19/18 08:45 Dose: 500 mg [place] Carbonate (Eskalith) [address] [facility]; Protocol Stop: 11/15/18 21:59 Last Admin: 09/18/18 21:47 Dose: 600 mg Morphine Sulfate (Morphine) 2 mg IVP Q4HR PRN PRN Reason: Pain (Severe) Stop: 11/15/18 18:04 Last Admin: 09/19/18 12:20 Dose: 2 mg Morphine Sulfate (Morphine) 1 mg IVP Q4HR PRN PRN Reason: Pain (Moderate) Stop: 11/15/18 18:03 Last Admin: 09/19/18 08:42 Dose: 1 mg Ondansetron HCl (Zofran) 4 mg IV Q6H PRN PRN Reason: Nausea / Vomiting Stop: 11/15/18 18:05 Quetiapine Fumarate (Seroquel Xr) 800 mg PO HS [facility]; Protocol Stop: 11/18/18 20:59 Temazepam (Restoril) 15 mg PO HS PRN; Protocol PRN Reason: Insomnia Stop: 11/16/18 11:11 Last Admin: 09/17/18 23:27 Dose: 15 mg General: Alert HEENT: Atraumatic Neck: Supple Cardiovascular: Normal S1 Lungs: Clear to auscultation Neurological: Other (left hemiplegia) Assessment/Plan - Assessment Assessment: brain tumor with mass effect syncopal episode h/o htn h/o hyperlipidemia h/o seizures h/o dementia h/o peptic ulcer disease - Plan Plan: as per order sheet Nutritional Asmnt/Malnutr-PDOC - Dietary Evaluation Malnutrition Findings (Please click <Entered> for more info): Nutritional Asmnt/Malnutrition Start: 09/19/18 11: 38 Text: Status: Active Freq: Protocol: Document 09/19/18 11:39 MMULHERN (Rec: 09/19/18 11:47 MMULHERN SHANNON- [email or web address]) Nutritional Asmnt/Malnutrition Patient General Information Nutritional Screening Moderate Risk Diagnosis Syncope R/O TIA, cardiac arrythmias Pertinent Medical Hx/Surgical Hx HTN, diabetes, dyslipidemia, seizure, psych disorder Current Diet Order/ Nutrition Support Low cholesterol Patient / S.O Not Indicated Pertinent Medications Dulcolax, Zofran Pertinent Labs (09/16) Albumin 3.8, TAG 156 Nutritional Hx/Data Height 1.75 m Height (Calculated Centimeters) 175.3 Current Weight (lbs) 84.368 kg Weight (Calculated Kilograms) 84.4 Weight (Calculated Grams) 74460.2 [place] Body Weight 160 % [place] Body Weight 116 Body Mass Index (BMI) 27.4 Recent Weight Change No Weight Status Overweight GI Symptoms GI Symptoms None Last BM none noted since admission Difficult in: None Food Allergies No Cultural/Ethnic/Advent Belief none indicated Usual diet at home unknown Skin Integrity/Comment: [place] 16, Intact, dilan/ incision on right upper head Current %PO Good (75-100%) Estimated Nutritional Goals BEE in Kcals: Using Current wt Calories/Kcals/Kg 22-27 kcal/kg using CBW 84.5 kg Kcals Calculated 6042-2409 kcal/day Protein: Using Current wt Protein g/k.8-1 gm/kg Protein Calculated 70-85 gm/day Fluid: ml ~4177-0086 ml/day Nutritional Problem 1. Problem Problem No nutrition diagnosis at this time Intervention/Recommendation Comments 1. Continue low cholesterol diet as tolerated by patient. Expected Outcomes/Goals Expected Outcomes/Goals Oral intake >75% of meals, weight stable, nutrition related labs WNL
--- NOTE | 2018-09-19 15:52 | General Progress Note ---
Subjective - Review of Systems Service Date: 09/19/18 Subjective: NO SZ . headache unchanged. left arm weakness Objective - Results Result Diagrams: 09/17/18 06:00 09/17/18 06:00 Recent Labs: Laboratory Last Values WBC 10.1 Th/cmm (4.8-10.8) 09/17/18 06:00 RBC 4.62 Mil/cmm (4.30-5.70) 09/17/18 06:00 Hgb 13.8 gm/dL (12-16) 09/17/18 06:00 Hct 41.0 % (41.0-60) 09/17/18 06:00 MCV 88.8 fl (80-99) 09/17/18 06:00 MCH 29.8 pg (26.0-30.0) 09/17/18 06:00 MCHC Differential 33.5 pg (28.0-36.0) 09/17/18 06:00 RDW 12.4 % (11.5-20.0) 09/17/18 06:00 Plt Count 288 Th/cmm (150-400) 09/17/18 06:00 MPV 8.0 fl 09/17/18 06:00 Neutrophils % 68.2 % (40.0-80.0) 09/17/18 06:00 Lymphocytes % 18.5 % (20.0-50.0) L 09/17/18 06:00 Monocytes % 8.2 % (2.0-10.0) 09/17/18 06:00 Eosinophils % 4.7 % (0.0-5.0) 09/17/18 06:00 Basophils % 0.4 % (0.0-2.0) 09/17/18 06:00 PT 9.9 SECONDS (9.5-11.5) 09/16/18 10:00 INR 0.95 (0.5-1.4) 09/16/18 10:00 Sodium 137 mEq/L (136-145) 09/17/18 06:00 Potassium 3.9 mEq/L (3.5-5.1) 09/17/18 06:00 Chloride 103 mEq/L (98-107) 09/17/18 06:00 Carbon Dioxide 24.9 mEq/L (21.0-31.0) 09/17/18 06:00 Anion Gap 13.0 (7.0-16.0) 09/17/18 06:00 BUN 17 mg/dL (7-25) 09/17/18 06:00 Creatinine 0.7 mg/dL (0.7-1.3) 09/17/18 06:00 Est GFR ( Amer) > 60.0 ml/min (>90) 09/17/18 06:00 Est GFR (Non-Af Amer) > 60.0 ml/min 09/17/18 06:00 BUN/Creatinine Ratio 24.3 09/17/18 06:00 Glucose 109 mg/dL (70-105) H 09/17/18 06:00 Calcium 9.8 mg/dL (8.6-10.3) 09/17/18 06:00 Total Bilirubin 0.7 mg/dL (0.3-1.0) 09/16/18 10:00 AST 10 U/L (13-39) L 09/16/18 10:00 ALT 8 U/L (7-52) 09/16/18 10:00 Alkaline Phosphatase 62 U/L (34-104) 09/16/18 10:00 Creatine Kinase 18 U/L (30-223) L 09/16/18 10:00 Troponin I 0.01 ng/mL (0.01-0.05) 09/16/18 10:00 B-Natriuretic Peptide 5.2 pg/mL (5.0-100.0) 09/16/18 10:00 Total Protein 6.7 gm/dL (6.0-8.3) 09/16/18 10:00 Albumin 3.8 gm/dL (4.2-5.5) L 09/16/18 10:00 Globulin 2.9 gm/dL 09/16/18 10:00 Albumin/Globulin Ratio 1.3 (1.0-1.8) 09/16/18 10:00 Triglycerides 156 mg/dL (<150) H 09/16/18 10:00 Cholesterol 152 mg/dL (<200) 09/16/18 10:00 LDL Cholesterol Direct 96 mg/dL (75-193) 09/16/18 10:00 HDL Cholesterol 37 mg/dL (23-92) 09/16/18 10:00 Valproic Acid < 10.0 ug/mL (50.0-100.0) L 09/16/18 10:00 - Physical Exam Vitals and I&O: Vital Signs Temp 98.1 F 09/19/18 15:00 Pulse 59 09/19/18 15:00 Resp 18 09/19/18 15:00 BP 116/52 09/19/18 15:00 Pulse Ox 95 09/19/18 15:00 Intake & Output 09/18/18 09/19/18 09/19/18 18:59 06:59 18:59 Intake Total 800 700 300 Balance 800 700 300 Weight (lbs) 84.368 kg 84.368 kg 84.368 kg Intake: Oral 800 700 300 Other: # Voids 2 3 # Bowel Movements 0 0 0 Weight Source Bedscale Bedscale Bedscale Active Medications: Current Medications Bisacodyl (Dulcolax 10 Mg Supp) 10 mg RC DAILY PRN PRN Reason: Constipation Stop: 11/16/18 07:46 Cyclobenzaprine HCl (Flexeril) 10 mg PO TID [facility] Stop: 11/16/18 08:59 Last Admin: 09/19/18 14:45 Dose: 10 mg Dexamethasone Sodium Phosphate (Decadron) 4 mg IVP Q6HR [facility] Stop: 11/16/18 11:59 Last Admin: 09/19/18 12:20 Dose: 4 mg Divalproex Sodium (Depakote Er) 1,500 mg PO [facility]; Protocol Stop: 11/15/18 21:49 Last Admin: 09/18/18 21:47 Dose: 1,500 mg Levetiracetam (Keppra) 500 mg PO BID [facility] Stop: 11/17/18 08:59 Last Admin: 09/19/18 08:45 Dose: 500 mg [place] Carbonate (Eskalith) 800 mg PO [facility]; Protocol Stop: 11/18/18 20:59 Morphine Sulfate (Morphine) 2 mg IVP Q4HR PRN PRN Reason: Pain (Severe) Stop: 11/15/18 18:04 Last Admin: 09/19/18 12:20 Dose: 2 mg Morphine Sulfate (Morphine) 1 mg IVP Q4HR PRN PRN Reason: Pain (Moderate) Stop: 11/15/18 18:03 Last Admin: 09/19/18 14:46 Dose: 1 mg Ondansetron HCl (Zofran) 4 mg IV Q6H PRN PRN Reason: Nausea / Vomiting Stop: 11/15/18 18:05 Quetiapine Fumarate (Seroquel Xr) 800 mg PO HS [facility]; Protocol Stop: 11/18/18 20:59 Temazepam (Restoril) 15 mg PO HS PRN; Protocol PRN Reason: Insomnia Stop: 11/16/18 11:11 Last Admin: 09/17/18 23:27 Dose: 15 mg General: Alert HEENT: Atraumatic Neck: Supple Cardiovascular: Normal S1 Lungs: Clear to auscultation Neurological: Other (left hemiplegia) Assessment/Plan - Assessment Assessment: * Brain tumor with no evidence of mets on CT chest/abd/pelvis. * awaiting path report from [place] on brain tumor biopsy Follow neuro recs and continue decadron awaiting path. KELLY ARNDT Nutritional Asmnt/Malnutr-PDOC - Dietary Evaluation Malnutrition Findings (Please click <Entered> for more info): Nutritional Asmnt/Malnutrition Start: 09/19/18 11: 38 Text: Status: Active Freq: Protocol: Document 09/19/18 11:39 MMULHERN (Rec: 09/19/18 11:47 MMULHERN SHANNON- [email or web address]) Nutritional Asmnt/Malnutrition Patient General Information Nutritional Screening Moderate Risk Diagnosis Syncope R/O TIA, cardiac arrythmias Pertinent Medical Hx/Surgical Hx HTN, diabetes, dyslipidemia, seizure, psych disorder Current Diet Order/ Nutrition Support Low cholesterol Patient / S.O Not Indicated Pertinent Medications Dulcolax, Zofran Pertinent Labs (09/16) Albumin 3.8, TAG 156 Nutritional Hx/Data Height 1.75 m Height (Calculated Centimeters) 175.3 Current Weight (lbs) 84.368 kg Weight (Calculated Kilograms) 84.4 Weight (Calculated Grams) 33577.2 [place] Body Weight 160 % [place] Body Weight 116 Body Mass Index (BMI) 27.4 Recent Weight Change No Weight Status Overweight GI Symptoms GI Symptoms None Last BM none noted since admission Difficult in: None Food Allergies No Cultural/Ethnic/[place] Belief none indicated Usual diet at home unknown Skin Integrity/Comment: [place] 16, Intact, dilan/ incision on right upper head Current %PO Good (75-100%) Estimated Nutritional Goals BEE in Kcals: Using Current wt Calories/Kcals/Kg 22-27 kcal/kg using CBW 84.5 kg Kcals Calculated 2149-1399 kcal/day Protein: Using Current wt Protein g/k.8-1 gm/kg Protein Calculated 70-85 gm/day Fluid: ml ~2488-6393 ml/day Nutritional Problem 1. Problem Problem No nutrition diagnosis at this time Intervention/Recommendation Comments 1. Continue low cholesterol diet as tolerated by patient. Expected Outcomes/Goals Expected Outcomes/Goals Oral intake >75% of meals, weight stable, nutrition related labs WNL
[2018-09-20] MEDS: Dexamethasone Sodium Phos 4 mg/mL Vial IVP SCH ×4 (01:11→19:40)
--- NOTE | 2018-09-20 01:19 | Progress Notes ---
DATE: 09/19/2018 SUMMARY: Case was discussed with staff of the patient and reviewed records. Also discussed the care with his daughter yesterday, who reported the patient was on Seroquel 800 mg at bedtime and he was doing well with it, the patient has not taken it for 2 nights since he was here, so I started him yesterday on 600, today I will be increasing the dose to 800 mg. He reported the voices have been fading away. He slept better, eating better. No side effects to the medication, no sedation, no nausea, and no extrapyramidal symptoms. The patient has his own psychiatrist and denies any current intent to harm himself or anybody. The voices are gone. Thank you very much for allowing me to participate in the care of this most interesting gentleman. JOB# [id number]
[2018-09-20] MEDS: Morphine Sulfate 2 mg/mL 1mL Syr IVP PRN ×6 (04:33→20:25)
[2018-09-20] MEDS ORDERED: Magnesium Hydroxide (MOM) 30 mL UDC PO PRN (15:19)
--- NOTE | 2018-09-20 19:55 | General Progress Note ---
Subjective - Review of Systems Events since last encounter: in no distress doing well denies hearing voices, good appetite Objective - Results Result Diagrams: 09/24/18 06:26 09/24/18 06:26 Recent Labs: Laboratory Last Values WBC 10.1 Th/cmm (4.8-10.8) 09/17/18 06:00 RBC 4.62 Mil/cmm (4.30-5.70) 09/17/18 06:00 Hgb 13.8 gm/dL (12-16) 09/17/18 06:00 Hct 41.0 % (41.0-60) 09/17/18 06:00 MCV 88.8 fl (80-99) 09/17/18 06:00 MCH 29.8 pg (26.0-30.0) 09/17/18 06:00 MCHC Differential 33.5 pg (28.0-36.0) 09/17/18 06:00 RDW 12.4 % (11.5-20.0) 09/17/18 06:00 Plt Count 288 Th/cmm (150-400) 09/17/18 06:00 MPV 8.0 fl 09/17/18 06:00 Neutrophils % 68.2 % (40.0-80.0) 09/17/18 06:00 Lymphocytes % 18.5 % (20.0-50.0) L 09/17/18 06:00 Monocytes % 8.2 % (2.0-10.0) 09/17/18 06:00 Eosinophils % 4.7 % (0.0-5.0) 09/17/18 06:00 Basophils % 0.4 % (0.0-2.0) 09/17/18 06:00 PT 9.9 SECONDS (9.5-11.5) 09/16/18 10:00 INR 0.95 (0.5-1.4) 09/16/18 10:00 Sodium 137 mEq/L (136-145) 09/17/18 06:00 Potassium 3.9 mEq/L (3.5-5.1) 09/17/18 06:00 Chloride 103 mEq/L (98-107) 09/17/18 06:00 Carbon Dioxide 24.9 mEq/L (21.0-31.0) 09/17/18 06:00 Anion Gap 13.0 (7.0-16.0) 09/17/18 06:00 BUN 17 mg/dL (7-25) 09/17/18 06:00 Creatinine 0.7 mg/dL (0.7-1.3) 09/17/18 06:00 Est GFR ( Amer) > 60.0 ml/min (>90) 09/17/18 06:00 Est GFR (Non-Af Amer) > 60.0 ml/min 09/17/18 06:00 BUN/Creatinine Ratio 24.3 09/17/18 06:00 Glucose 109 mg/dL (70-105) H 09/17/18 06:00 Calcium 9.8 mg/dL (8.6-10.3) 09/17/18 06:00 Total Bilirubin 0.7 mg/dL (0.3-1.0) 09/16/18 10:00 AST 10 U/L (13-39) L 09/16/18 10:00 ALT 8 U/L (7-52) 09/16/18 10:00 Alkaline Phosphatase 62 U/L (34-104) 09/16/18 10:00 Creatine Kinase 18 U/L (30-223) L 09/16/18 10:00 Troponin I 0.01 ng/mL (0.01-0.05) 09/16/18 10:00 B-Natriuretic Peptide 5.2 pg/mL (5.0-100.0) 09/16/18 10:00 Total Protein 6.7 gm/dL (6.0-8.3) 09/16/18 10:00 Albumin 3.8 gm/dL (4.2-5.5) L 09/16/18 10:00 Globulin 2.9 gm/dL 09/16/18 10:00 Albumin/Globulin Ratio 1.3 (1.0-1.8) 09/16/18 10:00 Triglycerides 156 mg/dL (<150) H 09/16/18 10:00 Cholesterol 152 mg/dL (<200) 09/16/18 10:00 LDL Cholesterol Direct 96 mg/dL (75-193) 09/16/18 10:00 HDL Cholesterol 37 mg/dL (23-92) 09/16/18 10:00 Valproic Acid < 10.0 ug/mL (50.0-100.0) L 09/16/18 10:00 - Physical Exam Vitals and I&O: Vital Signs Temp 98.5 F 09/20/18 16:21 Pulse 62 09/20/18 16:21 Resp 17 09/20/18 18:10 BP 126/69 09/20/18 16:21 Pulse Ox 95 09/20/18 16:21 Intake & Output 09/20/18 09/20/18 09/21/18 06:59 18:59 06:59 Intake Total 300 800 Output Total 800 Balance 300 0 Weight (lbs) 84.368 kg 84.368 kg Intake: Oral 300 800 Output: Urine 800 Other: # Voids 3 # Bowel Movements 0 0 Weight Source Bedscale Bedscale Active Medications: Current Medications Bisacodyl (Dulcolax 10 Mg Supp) 10 mg RC DAILY PRN PRN Reason: Constipation Stop: 11/16/18 07:46 Cyclobenzaprine HCl (Flexeril) 10 mg PO TID [facility] Stop: 11/16/18 08:59 Last Admin: 09/20/18 13:15 Dose: 10 mg Dexamethasone Sodium Phosphate (Decadron) 4 mg IVP Q6HR [facility] Stop: 11/16/18 11:59 Last Admin: 09/20/18 19:40 Dose: 4 mg Divalproex Sodium (Depakote Er) 1,500 mg PO HS [facility]; Protocol Stop: 11/15/18 21:49 Last Admin: 09/19/18 20:43 Dose: 1,500 mg Docusate Sodium (Colace) 200 mg PO BID [facility] Stop: 11/19/18 16:59 Last Admin: 09/20/18 16:57 Dose: 200 mg Levetiracetam (Keppra) 500 mg PO BID [facility] Stop: 11/17/18 08:59 Last Admin: 09/20/18 16:58 Dose: 500 mg [place] Carbonate (Eskalith) 800 mg PO HS [facility]; Protocol Stop: 11/18/18 20:59 Last Admin: 09/19/18 20:44 Dose: 800 mg Magnesium Hydroxide (Milk Of Magnesia) 30 ml PO HS PRN PRN Reason: Constipation Stop: 11/19/18 15:18 Morphine Sulfate (Morphine) 2 mg IVP Q4HR PRN PRN Reason: Pain (Severe) Stop: 11/15/18 18:04 Last Admin: 09/20/18 13:15 Dose: 2 mg Morphine Sulfate (Morphine) 1 mg IVP Q4HR PRN PRN Reason: Pain (Moderate) Stop: 11/15/18 18:03 Last Admin: 09/20/18 17:05 Dose: 1 mg Ondansetron HCl (Zofran) 4 mg IV Q6H PRN PRN Reason: Nausea / Vomiting Stop: 11/15/18 18:05 Quetiapine Fumarate (Seroquel Xr) 800 mg PO HS [facility]; Protocol Stop: 11/18/18 20:59 Last Admin: 09/19/18 20:43 Dose: 800 mg Temazepam (Restoril) 15 mg PO HS PRN; Protocol PRN Reason: Insomnia Stop: 11/16/18 11:11 Last Admin: 09/17/18 23:27 Dose: 15 mg General: Alert HEENT: Atraumatic Neck: Supple Cardiovascular: Normal S1 Lungs: Clear to auscultation Neurological: Other (left hemiplegia) Assessment/Plan - Assessment Assessment: brain tumor with mass effect syncopal episode h/o htn h/o hyperlipidemia h/o seizures h/o dementia h/o peptic ulcer disease - Plan Plan: biopsy as per order sheet Nutritional Asmnt/Malnutr-PDOC - Dietary Evaluation Malnutrition Findings (Please click <Entered> for more info): Nutritional Asmnt/Malnutrition Start: 09/19/18 11: 38 Text: Status: Complete Freq: Protocol: Document 09/19/18 11:39 MMULBELLA (Rec: 09/19/18 11:47 MMULBELLA ORTEGA FN) Nutritional Asmnt/Malnutrition Patient General Information Nutritional Screening Moderate Risk Diagnosis Syncope R/O TIA, cardiac arrythmias Pertinent Medical Hx/Surgical Hx HTN, diabetes, dyslipidemia, seizure, psych disorder Subjective Information Patient states his appetite is good and he has gained 10lb over the past few months because his appetite is so good. States he can tolerate all diet texture, no problems chewing or swallowing. Current Diet Order/ Nutrition Support Low cholesterol Patient / S.O Not Indicated Pertinent Medications Dulcolax, Zofran Pertinent Labs (09/16) Albumin 3.8, TAG 156 Nutritional Hx/Data Height 1.75 m Height (Calculated Centimeters) 175.3 Current Weight (lbs) 84.368 kg Weight (Calculated Kilograms) 84.4 Weight (Calculated Grams) 90515.2 [place] Body Weight 160 % [place] Body Weight 116 Body Mass Index (BMI) 27.4 Recent Weight Change No Weight Status Overweight GI Symptoms GI Symptoms None Last BM none noted since admission Difficult in: None Food Allergies No Cultural/Ethnic/Zoroastrian Belief none indicated Usual diet at home unknown Skin Integrity/Comment: Connor 16, Intact, dilan/ incision on right upper head Current %PO Good (75-100%) Estimated Nutritional Goals BEE in Kcals: Using Current wt Calories/Kcals/Kg 22-27 kcal/kg using CBW 84.5 kg Kcals Calculated 0307-5795 kcal/day Protein: Using Current wt Protein g/k.8-1 gm/kg Protein Calculated 70-85 gm/day Fluid: ml ~4102-0482 ml/day Nutritional Problem 1. Problem Problem No nutrition diagnosis at this time Intervention/Recommendation Comments 1. Continue low cholesterol diet as tolerated by patient. Expected Outcomes/Goals Expected Outcomes/Goals Oral intake >75% of meals, weight stable, nutrition related labs WNL
--- NOTE | 2018-09-20 21:46 | Progress Notes ---
DATE: 09/20/2018 SUBJECTIVE: Case was discussed with staff of the patient, reviewed records. The patient tolerated increase in Seroquel to 800 mg at bedtime. The patient reports that the voices are gone. He is sleeping better, eating better. He denies any current intent to harm himself or anybody. He denies any auditory or visual hallucination or paranoia. He denies having any side effects. The patient needs follow up with the Psychiatry upon discharge. The patient reports he is waiting on the results of the biopsy that would be coming this Friday. Thank you very much for allowing me to participate in the care of this most interesting gentleman. JOB# [id number]
[2018-09-21] MEDS: Dexamethasone Sodium Phos 4 mg/mL Vial IVP SCH ×4 (00:22→17:22)
[2018-09-21] MEDS: Morphine Sulfate 2 mg/mL 1mL Syr IVP PRN ×6 (00:22→21:17)
--- NOTE | 2018-09-21 11:23 | General Progress Note ---
Subjective - Review of Systems Service Date: 09/21/18 Subjective: NO SZ . headache unchanged. left arm weakness Objective - Results Result Diagrams: 09/17/18 06:00 09/17/18 06:00 Recent Labs: Laboratory Last Values WBC 10.1 Th/cmm (4.8-10.8) 09/17/18 06:00 RBC 4.62 Mil/cmm (4.30-5.70) 09/17/18 06:00 Hgb 13.8 gm/dL (12-16) 09/17/18 06:00 Hct 41.0 % (41.0-60) 09/17/18 06:00 MCV 88.8 fl (80-99) 09/17/18 06:00 MCH 29.8 pg (26.0-30.0) 09/17/18 06:00 MCHC Differential 33.5 pg (28.0-36.0) 09/17/18 06:00 RDW 12.4 % (11.5-20.0) 09/17/18 06:00 Plt Count 288 Th/cmm (150-400) 09/17/18 06:00 MPV 8.0 fl 09/17/18 06:00 Neutrophils % 68.2 % (40.0-80.0) 09/17/18 06:00 Lymphocytes % 18.5 % (20.0-50.0) L 09/17/18 06:00 Monocytes % 8.2 % (2.0-10.0) 09/17/18 06:00 Eosinophils % 4.7 % (0.0-5.0) 09/17/18 06:00 Basophils % 0.4 % (0.0-2.0) 09/17/18 06:00 PT 9.9 SECONDS (9.5-11.5) 09/16/18 10:00 INR 0.95 (0.5-1.4) 09/16/18 10:00 Sodium 137 mEq/L (136-145) 09/17/18 06:00 Potassium 3.9 mEq/L (3.5-5.1) 09/17/18 06:00 Chloride 103 mEq/L (98-107) 09/17/18 06:00 Carbon Dioxide 24.9 mEq/L (21.0-31.0) 09/17/18 06:00 Anion Gap 13.0 (7.0-16.0) 09/17/18 06:00 BUN 17 mg/dL (7-25) 09/17/18 06:00 Creatinine 0.7 mg/dL (0.7-1.3) 09/17/18 06:00 Est GFR ( Amer) > 60.0 ml/min (>90) 09/17/18 06:00 Est GFR (Non-Af Amer) > 60.0 ml/min 09/17/18 06:00 BUN/Creatinine Ratio 24.3 09/17/18 06:00 Glucose 109 mg/dL (70-105) H 09/17/18 06:00 Calcium 9.8 mg/dL (8.6-10.3) 09/17/18 06:00 Total Bilirubin 0.7 mg/dL (0.3-1.0) 09/16/18 10:00 AST 10 U/L (13-39) L 09/16/18 10:00 ALT 8 U/L (7-52) 09/16/18 10:00 Alkaline Phosphatase 62 U/L (34-104) 09/16/18 10:00 Creatine Kinase 18 U/L (30-223) L 09/16/18 10:00 Troponin I 0.01 ng/mL (0.01-0.05) 09/16/18 10:00 B-Natriuretic Peptide 5.2 pg/mL (5.0-100.0) 09/16/18 10:00 Total Protein 6.7 gm/dL (6.0-8.3) 09/16/18 10:00 Albumin 3.8 gm/dL (4.2-5.5) L 09/16/18 10:00 Globulin 2.9 gm/dL 09/16/18 10:00 Albumin/Globulin Ratio 1.3 (1.0-1.8) 09/16/18 10:00 Triglycerides 156 mg/dL (<150) H 09/16/18 10:00 Cholesterol 152 mg/dL (<200) 09/16/18 10:00 LDL Cholesterol Direct 96 mg/dL (75-193) 09/16/18 10:00 HDL Cholesterol 37 mg/dL (23-92) 09/16/18 10:00 Valproic Acid < 10.0 ug/mL (50.0-100.0) L 09/16/18 10:00 - Physical Exam Vitals and I&O: Vital Signs Temp 98.4 F 09/21/18 04:00 Pulse 68 09/21/18 04:00 Resp 17 09/21/18 07:00 BP 128/73 09/21/18 04:00 Pulse Ox 96 09/21/18 04:00 Intake & Output 09/20/18 09/21/18 09/21/18 18:59 06:59 18:59 Intake Total 800 240 Output Total 800 Balance 0 240 Weight (lbs) 84.368 kg 84.368 kg Intake: Oral 800 240 Output: Urine 800 Other: # Voids 2 # Bowel Movements 0 0 Weight Source Bedscale Bedscale Active Medications: Current Medications Bisacodyl (Dulcolax 10 Mg Supp) 10 mg RC DAILY PRN PRN Reason: Constipation Stop: 11/16/18 07:46 Cyclobenzaprine HCl (Flexeril) 10 mg PO TID [facility] Stop: 11/16/18 08:59 Last Admin: 09/21/18 08:28 Dose: 10 mg Dexamethasone Sodium Phosphate (Decadron) 4 mg IVP Q6HR [facility] Stop: 11/16/18 11:59 Last Admin: 09/21/18 05:35 Dose: 4 mg Divalproex Sodium (Depakote Er) 1,500 mg PO HS [facility]; Protocol Stop: 11/15/18 21:49 Last Admin: 09/20/18 20:24 Dose: 1,500 mg Docusate Sodium (Colace) 200 mg PO BID [facility] Stop: 11/19/18 16:59 Last Admin: 09/21/18 08:28 Dose: 200 mg Levetiracetam (Keppra) 500 mg PO BID [facility] Stop: 11/17/18 08:59 Last Admin: 09/21/18 08:28 Dose: 500 mg [place] Carbonate (Eskalith) 800 mg PO HS [facility]; Protocol Stop: 11/18/18 20:59 Last Admin: 09/20/18 20:25 Dose: 800 mg Magnesium Hydroxide (Milk Of Magnesia) 30 ml PO HS PRN PRN Reason: Constipation Stop: 11/19/18 15:18 Last Admin: 09/21/18 08:28 Dose: 30 ml Morphine Sulfate (Morphine) 2 mg IVP Q4HR PRN PRN Reason: Pain (Severe) Stop: 11/15/18 18:04 Last Admin: 09/21/18 09:25 Dose: 2 mg Morphine Sulfate (Morphine) 1 mg IVP Q4HR PRN PRN Reason: Pain (Moderate) Stop: 11/15/18 18:03 Last Admin: 09/20/18 17:05 Dose: 1 mg Ondansetron HCl (Zofran) 4 mg IV Q6H PRN PRN Reason: Nausea / Vomiting Stop: 11/15/18 18:05 Quetiapine Fumarate (Seroquel Xr) 800 mg PO HS [facility]; Protocol Stop: 11/18/18 20:59 Last Admin: 09/20/18 20:41 Dose: 800 mg Temazepam (Restoril) 15 mg PO HS PRN; Protocol PRN Reason: Insomnia Stop: 11/16/18 11:11 Last Admin: 09/17/18 23:27 Dose: 15 mg General: Alert HEENT: Atraumatic Neck: Supple Cardiovascular: Normal S1 Lungs: Clear to auscultation Neurological: Other (left hemiplegia) Assessment/Plan - Assessment Assessment: * Brain tumor with no evidence of mets on CT chest/abd/pelvis. * awaiting path report from [facility] on brain tumor biopsy Follow neuro recs and continue decadron awaiting path. Will follow as outpatient for further management Nutritional Asmnt/Malnutr-PDOC - Dietary Evaluation Malnutrition Findings (Please click <Entered> for more info): Nutritional Asmnt/Malnutrition Start: 09/19/18 11: 38 Text: Status: Complete Freq: Protocol: Document 09/19/18 11:39 MMULHERN (Rec: 09/19/18 11:47 MMULHERN SHANNON- [email or web address]) Nutritional Asmnt/Malnutrition Patient General Information Nutritional Screening Moderate Risk Diagnosis Syncope R/O TIA, cardiac arrythmias Pertinent Medical Hx/Surgical Hx HTN, diabetes, dyslipidemia, seizure, psych disorder Subjective Information Patient states his appetite is good and he has gained 10lb over the past few months because his appetite is so good. States he can tolerate all diet texture, no problems chewing or swallowing. Current Diet Order/ Nutrition Support Low cholesterol Patient / S.O Not Indicated Pertinent Medications Dulcolax, Zofran Pertinent Labs (09/16) Albumin 3.8, TAG 156 Nutritional Hx/Data Height 1.75 m Height (Calculated Centimeters) 175.3 Current Weight (lbs) 84.368 kg Weight (Calculated Kilograms) 84.4 Weight (Calculated Grams) 64090.2 [place] Body Weight 160 % [place] Body Weight 116 Body Mass Index (BMI) 27.4 Recent Weight Change No Weight Status Overweight GI Symptoms GI Symptoms None Last BM none noted since admission Difficult in: None Food Allergies No Cultural/Ethnic/Quaker Belief none indicated Usual diet at home unknown Skin Integrity/Comment: Connor 16, Intact, dilan/ incision on right upper head Current %PO Good (75-100%) Estimated Nutritional Goals BEE in Kcals: Using Current wt Calories/Kcals/Kg 22-27 kcal/kg using CBW 84.5 kg Kcals Calculated 7310-6017 kcal/day Protein: Using Current wt Protein g/k.8-1 gm/kg Protein Calculated 70-85 gm/day Fluid: ml ~3783-1826 ml/day Nutritional Problem 1. Problem Problem No nutrition diagnosis at this time Intervention/Recommendation Comments 1. Continue low cholesterol diet as tolerated by patient. Expected Outcomes/Goals Expected Outcomes/Goals Oral intake >75% of meals, weight stable, nutrition related labs WNL
--- NOTE | 2018-09-21 16:44 | Internal Medicine Prog Note ---
Internal Medicine Subjective - Subjective Patient seen and examined:: chart reviewed Patient is:: other (left arm weakness ) Per staff patient has:: no adverse event Internal Medicine Objective - Results Result Diagrams: 09/17/18 06:00 09/17/18 06:00 Recent Labs: Laboratory Last Values WBC 10.1 Th/cmm (4.8-10.8) 09/17/18 06:00 RBC 4.62 Mil/cmm (4.30-5.70) 09/17/18 06:00 Hgb 13.8 gm/dL (12-16) 09/17/18 06:00 Hct 41.0 % (41.0-60) 09/17/18 06:00 MCV 88.8 fl (80-99) 09/17/18 06:00 MCH 29.8 pg (26.0-30.0) 09/17/18 06:00 MCHC Differential 33.5 pg (28.0-36.0) 09/17/18 06:00 RDW 12.4 % (11.5-20.0) 09/17/18 06:00 Plt Count 288 Th/cmm (150-400) 09/17/18 06:00 MPV 8.0 fl 09/17/18 06:00 Neutrophils % 68.2 % (40.0-80.0) 09/17/18 06:00 Lymphocytes % 18.5 % (20.0-50.0) L 09/17/18 06:00 Monocytes % 8.2 % (2.0-10.0) 09/17/18 06:00 Eosinophils % 4.7 % (0.0-5.0) 09/17/18 06:00 Basophils % 0.4 % (0.0-2.0) 09/17/18 06:00 PT 9.9 SECONDS (9.5-11.5) 09/16/18 10:00 INR 0.95 (0.5-1.4) 09/16/18 10:00 Sodium 137 mEq/L (136-145) 09/17/18 06:00 Potassium 3.9 mEq/L (3.5-5.1) 09/17/18 06:00 Chloride 103 mEq/L (98-107) 09/17/18 06:00 Carbon Dioxide 24.9 mEq/L (21.0-31.0) 09/17/18 06:00 Anion Gap 13.0 (7.0-16.0) 09/17/18 06:00 BUN 17 mg/dL (7-25) 09/17/18 06:00 Creatinine 0.7 mg/dL (0.7-1.3) 09/17/18 06:00 Est GFR ( Amer) > 60.0 ml/min (>90) 09/17/18 06:00 Est GFR (Non-Af Amer) > 60.0 ml/min 09/17/18 06:00 BUN/Creatinine Ratio 24.3 09/17/18 06:00 Glucose 109 mg/dL (70-105) H 09/17/18 06:00 Calcium 9.8 mg/dL (8.6-10.3) 09/17/18 06:00 Total Bilirubin 0.7 mg/dL (0.3-1.0) 09/16/18 10:00 AST 10 U/L (13-39) L 09/16/18 10:00 ALT 8 U/L (7-52) 09/16/18 10:00 Alkaline Phosphatase 62 U/L (34-104) 09/16/18 10:00 Creatine Kinase 18 U/L (30-223) L 09/16/18 10:00 Troponin I 0.01 ng/mL (0.01-0.05) 09/16/18 10:00 B-Natriuretic Peptide 5.2 pg/mL (5.0-100.0) 09/16/18 10:00 Total Protein 6.7 gm/dL (6.0-8.3) 09/16/18 10:00 Albumin 3.8 gm/dL (4.2-5.5) L 09/16/18 10:00 Globulin 2.9 gm/dL 09/16/18 10:00 Albumin/Globulin Ratio 1.3 (1.0-1.8) 09/16/18 10:00 Triglycerides 156 mg/dL (<150) H 09/16/18 10:00 Cholesterol 152 mg/dL (<200) 09/16/18 10:00 LDL Cholesterol Direct 96 mg/dL (75-193) 09/16/18 10:00 HDL Cholesterol 37 mg/dL (23-92) 09/16/18 10:00 Valproic Acid < 10.0 ug/mL (50.0-100.0) L 09/16/18 10:00 - Physical Exam Vitals and I&O: Vital Signs Temp 98.2 F 09/21/18 12:00 Pulse 63 09/21/18 12:00 Resp 17 09/21/18 15:47 BP 124/73 09/21/18 12:00 Pulse Ox 95 09/21/18 12:00 Intake & Output 09/20/18 09/21/18 09/21/18 18:59 06:59 18:59 Intake Total 800 240 Output Total 800 Balance 0 240 Weight (lbs) 84.368 kg 84.368 kg Intake: Oral 800 240 Output: Urine 800 Other: # Voids 2 # Bowel Movements 0 0 Weight Source Bedscale Bedscale Active Medications: Current Medications Bisacodyl (Dulcolax 10 Mg Supp) 10 mg RC DAILY PRN PRN Reason: Constipation Stop: 11/16/18 07:46 Cyclobenzaprine HCl (Flexeril) 10 mg PO TID [facility] Stop: 11/16/18 08:59 Last Admin: 09/21/18 13:08 Dose: 10 mg Dexamethasone Sodium Phosphate (Decadron) 4 mg IVP Q6HR [facility] Stop: 11/16/18 11:59 Last Admin: 09/21/18 11:46 Dose: 4 mg Divalproex Sodium (Depakote Er) 1,500 mg PO HS [facility]; Protocol Stop: 11/15/18 21:49 Last Admin: 09/20/18 20:24 Dose: 1,500 mg Docusate Sodium (Colace) 200 mg PO BID [facility] Stop: 11/19/18 16:59 Last Admin: 09/21/18 08:28 Dose: 200 mg Levetiracetam (Keppra) 500 mg PO BID [facility] Stop: 11/17/18 08:59 Last Admin: 09/21/18 08:28 Dose: 500 mg [place] Carbonate (Eskalith) 800 mg PO HS [facility]; Protocol Stop: 11/18/18 20:59 Last Admin: 09/20/18 20:25 Dose: 800 mg Magnesium Hydroxide (Milk Of Magnesia) 30 ml PO HS PRN PRN Reason: Constipation Stop: 11/19/18 15:18 Last Admin: 09/21/18 08:28 Dose: 30 ml Morphine Sulfate (Morphine) 2 mg IVP Q4HR PRN PRN Reason: Pain (Severe) Stop: 11/15/18 18:04 Last Admin: 09/21/18 13:13 Dose: 2 mg Morphine Sulfate (Morphine) 1 mg IVP Q4HR PRN PRN Reason: Pain (Moderate) Stop: 11/15/18 18:03 Last Admin: 09/20/18 17:05 Dose: 1 mg Ondansetron HCl (Zofran) 4 mg IV Q6H PRN PRN Reason: Nausea / Vomiting Stop: 11/15/18 18:05 Quetiapine Fumarate (Seroquel Xr) 800 mg PO HS [facility]; Protocol Stop: 11/18/18 20:59 Last Admin: 09/20/18 20:41 Dose: 800 mg Temazepam (Restoril) 15 mg PO HS [facility]; Protocol PRN Reason: Insomnia Stop: 11/16/18 11:11 Last Admin: 09/17/18 23:27 Dose: 15 mg General: alert HEENT: NC/AT Neck: Supple Lungs: CTAB Cardiovascular: RRR, Normal S1, Normal S2 Abdomen: soft, non-tender Extremities: clear Neurological: no change Internal Medicine Assmt/Plan - Assessment Assessment: brain tumor with mass effect syncopal episode h/o htn h/o hyperlipidemia h/o seizures h/o dementia h/o peptic ulcer disease - Plan Plan: as per order sheet Nutritional Asmnt/Malnutr-PDOC - Dietary Evaluation Malnutrition Findings (Please click <Entered> for more info): Nutritional Asmnt/Malnutrition Start: 09/19/18 11: 38 Text: Status: Complete Freq: Protocol: Document 09/19/18 11:39 HALEY (Rec: 09/19/18 11:47 HALEY ORTEGA- [email or web address]) Nutritional Asmnt/Malnutrition Patient General Information Nutritional Screening Moderate Risk Diagnosis Syncope R/O TIA, cardiac arrythmias Pertinent Medical Hx/Surgical Hx HTN, diabetes, dyslipidemia, seizure, psych disorder Subjective Information Patient states his appetite is good and he has gained 10lb over the past few months because his appetite is so good. States he can tolerate all diet texture, no problems chewing or swallowing. Current Diet Order/ Nutrition Support Low cholesterol Patient / S.O Not Indicated Pertinent Medications Dulcolax, Zofran Pertinent Labs (09/16) Albumin 3.8, TAG 156 Nutritional Hx/Data Height 1.75 m Height (Calculated Centimeters) 175.3 Current Weight (lbs) 84.368 kg Weight (Calculated Kilograms) 84.4 Weight (Calculated Grams) 09127.2 [place] Body Weight 160 % [place] Body Weight 116 Body Mass Index (BMI) 27.4 Recent Weight Change No Weight Status Overweight GI Symptoms GI Symptoms None Last BM none noted since admission Difficult in: None Food Allergies No Cultural/Ethnic/Jainism Belief none indicated Usual diet at home unknown Skin Integrity/Comment: [place] 16, Intact, dilan/ incision on right upper head Current %PO Good (75-100%) Estimated Nutritional Goals BEE in Kcals: Using Current wt Calories/Kcals/Kg 22-27 kcal/kg using CBW 84.5 kg Kcals Calculated 5552-5678 kcal/day Protein: Using Current wt Protein g/k.8-1 gm/kg Protein Calculated 70-85 gm/day Fluid: ml ~1634-8251 ml/day Nutritional Problem 1. Problem Problem No nutrition diagnosis at this time Intervention/Recommendation Comments 1. Continue low cholesterol diet as tolerated by patient. Expected Outcomes/Goals Expected Outcomes/Goals Oral intake >75% of meals, weight stable, nutrition related labs WNL
[2018-09-21] MEDS ORDERED: Dexamethasone Sodium Phos 4 mg/mL Vial IVP SCH (21:00)
--- NOTE | 2018-09-21 22:54 | Progress Notes ---
DATE: 09/21/2018 Case was discussed with staff of the patient, reviewed records. The patient was no longer hearing voices. He is sleeping better, complain of headache, he has a brain tumor with metastasis. He had a biopsy done, the results are pending said. He says he will be staying till the biopsy results come out and he expected to come in the next day or two. He denies any current intent to harm himself or anybody. He denies any current hallucination or paranoia and the patient needs to stay on his medication. He is on lithium and Depakote. His lab work showed hematocrit is low, lymphocyte is low, the rest within normal range. His chemistry panel with low sodium at 135. Blood sugar is normal. His creatinine kinase is low, albumin is low. Triglyceride is high. The rest of the lipid panel is within normal range. Depakote level is less than 10 and the patient has been compliant with medication. No side effects. Probably his Depakote ____. Thank you very much for allowing me to participate in the care of this most interesting gentleman. JOB# [id number]
[2018-09-22] MEDS: Morphine Sulfate 2 mg/mL 1mL Syr IVP PRN ×6 (01:22→20:29)
[2018-09-22 05:13] LABS: % BASOPHILS 0.1 % (0.0-2.0); % EOSINOPHILS 0.4 % (0.0-5.0); % LYMPHOCYTES 14.8 % (20.0-50.0); % MONOCYTES 5.4 % (2.0-10.0); % NEUTROPHILS 79.3 % (40.0-80.0); HEMATOCRIT 43.9 % (41.0-60); LYMPHOCYTE ABSOLUTE 1.6 Th/cmm (1.5-3.0); MEAN CELL VOLUME 89.4 fl (80-99); MEAN CORPUSCULAR HEMOGLOBIN 30.5 pg (26.0-30.0); MEAN CORPUSCULAR HGB CONC 34.1 pg (28.0-36.0); MEAN PLATELET VOLUME 8.3 fl; MONOCYTE ABSOLUTE 0.6 Th/cmm (0.3-1.0); NEUTROPHILE ABSOLUTE 8.7 Th/cmm (1.8-8.0); PLATELET COUNT 216 Th/cmm (150-400); RED BLOOD COUNT 4.91 Mil/cmm (4.30-5.70); RED CELL DISTRIBUTION WIDTH 12.3 % (11.5-20.0); WHITE BLOOD COUNT 10.9 Th/cmm (4.8-10.8)
[2018-09-22 05:36] LABS: ALB/GLOB RATIO 1.3 (1.0-1.8); ALBUMIN 3.6 gm/dL (4.2-5.5); ALKALINE PHOSPHATASE 60 U/L (34-104); ANION GAP 10.4 (7.0-16.0); BILIRUBIN,TOTAL 0.4 mg/dL (0.3-1.0); BUN - UREA NITROGEN 20 mg/dL (7-25); CARBON DIOXIDE 28.6 mEq/L (21.0-31.0); CHLORIDE 105 mEq/L (98-107); CREATININE - SERUM 0.6 mg/dL (0.7-1.3); GFR AFRICAN-AMERICAN > 60.0 ml/min (>90); GFR NON AFRICAN-AMERICAN > 60.0 ml/min; GLUCOSE 102 mg/dL (70-105); SGOT 9 U/L (13-39); SGPT/ALT 12 U/L (7-52); SODIUM SERUM 140 mEq/L (136-145); TOTAL PROTEIN,SERUM 6.4 gm/dL (6.0-8.3)
[2018-09-22] MEDS: Dexamethasone Sodium Phos 4 mg/mL Vial IVP SCH ×2 (08:17→21:58)
--- NOTE | 2018-09-22 12:57 | Internal Medicine Prog Note ---
Internal Medicine Subjective - Subjective Service Date: 09/22/18 Patient seen and examined:: with staff Patient is:: awake, verbal, other (left arm weakness ) Per staff patient has:: no adverse event Internal Medicine Objective - Results Result Diagrams: 09/22/18 04:40 09/22/18 04:40 Recent Labs: Laboratory Last Values WBC 10.9 Th/cmm (4.8-10.8) H 09/22/18 04:40 RBC 4.91 Mil/cmm (4.30-5.70) 09/22/18 04:40 Hgb 15.0 gm/dL (12-16) 09/22/18 04:40 Hct 43.9 % (41.0-60) 09/22/18 04:40 MCV 89.4 fl (80-99) 09/22/18 04:40 MCH 30.5 pg (26.0-30.0) H 09/22/18 04:40 MCHC Differential 34.1 pg (28.0-36.0) 09/22/18 04:40 RDW 12.3 % (11.5-20.0) 09/22/18 04:40 Plt Count 216 Th/cmm (150-400) 09/22/18 04:40 MPV 8.3 fl 09/22/18 04:40 Neutrophils % 79.3 % (40.0-80.0) 09/22/18 04:40 Lymphocytes % 14.8 % (20.0-50.0) L 09/22/18 04:40 Monocytes % 5.4 % (2.0-10.0) 09/22/18 04:40 Eosinophils % 0.4 % (0.0-5.0) 09/22/18 04:40 Basophils % 0.1 % (0.0-2.0) 09/22/18 04:40 PT 9.9 SECONDS (9.5-11.5) 09/16/18 10:00 INR 0.95 (0.5-1.4) 09/16/18 10:00 Sodium 140 mEq/L (136-145) 09/22/18 04:40 Potassium 4.0 mEq/L (3.5-5.1) 09/22/18 04:40 Chloride 105 mEq/L (98-107) 09/22/18 04:40 Carbon Dioxide 28.6 mEq/L (21.0-31.0) 09/22/18 04:40 Anion Gap 10.4 (7.0-16.0) 09/22/18 04:40 BUN 20 mg/dL (7-25) 09/22/18 04:40 Creatinine 0.6 mg/dL (0.7-1.3) L 09/22/18 04:40 Est GFR ( Amer) > 60.0 ml/min (>90) 09/22/18 04:40 Est GFR (Non-Af Amer) > 60.0 ml/min 09/22/18 04:40 BUN/Creatinine Ratio 33.3 09/22/18 04:40 Glucose 102 mg/dL (70-105) 09/22/18 04:40 Calcium 10.0 mg/dL (8.6-10.3) 09/22/18 04:40 Total Bilirubin 0.4 mg/dL (0.3-1.0) 09/22/18 04:40 AST 9 U/L (13-39) L 09/22/18 04:40 ALT 12 U/L (7-52) 09/22/18 04:40 Alkaline Phosphatase 60 U/L (34-104) 09/22/18 04:40 Creatine Kinase 18 U/L (30-223) L 09/16/18 10:00 Troponin I 0.01 ng/mL (0.01-0.05) 09/16/18 10:00 B-Natriuretic Peptide 5.2 pg/mL (5.0-100.0) 09/16/18 10:00 Total Protein 6.4 gm/dL (6.0-8.3) 09/22/18 04:40 Albumin 3.6 gm/dL (4.2-5.5) L 09/22/18 04:40 Globulin 2.8 gm/dL 09/22/18 04:40 Albumin/Globulin Ratio 1.3 (1.0-1.8) 09/22/18 04:40 Triglycerides 156 mg/dL (<150) H 09/16/18 10:00 Cholesterol 152 mg/dL (<200) 09/16/18 10:00 LDL Cholesterol Direct 96 mg/dL (75-193) 09/16/18 10:00 HDL Cholesterol 37 mg/dL (23-92) 09/16/18 10:00 Valproic Acid < 10.0 ug/mL (50.0-100.0) L 09/16/18 10:00 - Physical Exam Vitals and I&O: Vital Signs Temp 97.8 F 09/22/18 12:00 Pulse 70 09/22/18 12:00 Resp 18 09/22/18 12:00 BP 123/65 09/22/18 12:00 Pulse Ox 98 09/22/18 12:00 Intake & Output 09/21/18 09/22/18 09/22/18 18:59 06:59 18:59 Intake Total 800 586 Output Total 190 Balance 800 396 Weight (lbs) 186 lb 208 lb 6.4 oz Intake: Oral 800 586 Output: Urine 190 Stool 0 Other: # Voids 3 # Bowel Movements 0 Stool Characteristics Formed Weight Source Bedscale Bedscale Active Medications: Current Medications Bisacodyl (Dulcolax 10 Mg Supp) 10 mg RC DAILY PRN PRN Reason: Constipation Stop: 11/16/18 07:46 Cyclobenzaprine HCl (Flexeril) 10 mg PO TID [facility] Stop: 11/16/18 08:59 Last Admin: 09/22/18 08:17 Dose: 10 mg Dexamethasone Sodium Phosphate (Decadron) 4 mg IVP Q12HR [facility] Stop: 11/21/18 08:59 Last Admin: 09/22/18 08:17 Dose: 4 mg Divalproex Sodium (Depakote Er) 1,500 mg PO HS [facility]; Protocol Stop: 11/15/18 21:49 Last Admin: 09/21/18 21:17 Dose: 1,500 mg Docusate Sodium (Colace) 200 mg PO BID [facility] Stop: 11/19/18 16:59 Last Admin: 09/22/18 08:17 Dose: 200 mg Levetiracetam (Keppra) 500 mg PO BID [facility] Stop: 11/17/18 08:59 Last Admin: 09/22/18 08:17 Dose: 500 mg [place] Carbonate (Eskalith) 800 mg PO HS [facility]; Protocol Stop: 11/18/18 20:59 Last Admin: 09/21/18 21:18 Dose: 800 mg Magnesium Hydroxide (Milk Of Magnesia) 30 ml PO HS PRN PRN Reason: Constipation Stop: 11/19/18 15:18 Last Admin: 09/21/18 08:28 Dose: 30 ml Morphine Sulfate (Morphine) 2 mg IVP Q4HR PRN PRN Reason: Pain (Severe) Stop: 11/15/18 18:04 Last Admin: 09/22/18 12:22 Dose: 2 mg Morphine Sulfate (Morphine) 1 mg IVP Q4HR PRN PRN Reason: Pain (Moderate) Stop: 11/15/18 18:03 Last Admin: 09/20/18 17:05 Dose: 1 mg Ondansetron HCl (Zofran) 4 mg IV Q6H PRN PRN Reason: Nausea / Vomiting Stop: 11/15/18 18:05 Quetiapine Fumarate (Seroquel Xr) 800 mg PO HS [facility]; Protocol Stop: 11/18/18 20:59 Last Admin: 09/21/18 21:18 Dose: 800 mg Temazepam (Restoril) 15 mg PO HS PRN; Protocol PRN Reason: Insomnia Stop: 11/16/18 11:11 Last Admin: 09/17/18 23:27 Dose: 15 mg General: alert HEENT: NC/AT Neck: Supple Lungs: CTAB Cardiovascular: RRR, Normal S1, Normal S2 Abdomen: soft, non-tender Extremities: clear Neurological: no change Internal Medicine Assmt/Plan - Assessment Assessment: brain tumor with mass effect syncopal episode h/o htn h/o hyperlipidemia h/o seizures h/o dementia h/o peptic ulcer disease - Plan Plan: fall precautions appreciate neuro recc follow up labs in am Nutritional Asmnt/Malnutr-PDOC - Dietary Evaluation Malnutrition Findings (Please click <Entered> for more info): Nutritional Asmnt/Malnutrition Start: 09/19/18 11: 38 Text: Status: Complete Freq: Protocol: Document 09/19/18 11:39 MMULBELLA (Rec: 09/19/18 11:47 MMULBELLA ORTEGA- [email or web address]) Nutritional Asmnt/Malnutrition Patient General Information Nutritional Screening Moderate Risk Diagnosis Syncope R/O TIA, cardiac arrythmias Pertinent Medical Hx/Surgical Hx HTN, diabetes, dyslipidemia, seizure, psych disorder Subjective Information Patient states his appetite is good and he has gained 10lb over the past few months because his appetite is so good. States he can tolerate all diet texture, no problems chewing or swallowing. Current Diet Order/ Nutrition Support Low cholesterol Patient / S.O Not Indicated Pertinent Medications Dulcolax, Zofran Pertinent Labs (09/16) Albumin 3.8, TAG 156 Nutritional Hx/Data Height 5 ft 9 in Height (Calculated Centimeters) 175.3 Current Weight (lbs) 186 lb Weight (Calculated Kilograms) 84.4 Weight (Calculated Grams) 88244.2 [place] Body Weight 160 % [place] Body Weight 116 Body Mass Index (BMI) 27.4 Recent Weight Change No Weight Status Overweight GI Symptoms GI Symptoms None Last BM none noted since admission Difficult in: None Food Allergies No Cultural/Ethnic/L[employer] Day Belief none indicated Usual diet at home unknown Skin Integrity/Comment: Connor 16, Intact, dilan/ incision on right upper head Current %PO Good (75-100%) Estimated Nutritional Goals BEE in Kcals: Using Current wt Calories/Kcals/Kg 22-27 kcal/kg using CBW 84.5 kg Kcals Calculated 6880-4701 kcal/day Protein: Using Current wt Protein g/k.8-1 gm/kg Protein Calculated 70-85 gm/day Fluid: ml ~8187-3708 ml/day Nutritional Problem 1. Problem Problem No nutrition diagnosis at this time Intervention/Recommendation Comments 1. Continue low cholesterol diet as tolerated by patient. Expected Outcomes/Goals Expected Outcomes/Goals Oral intake >75% of meals, weight stable, nutrition related labs WNL
--- NOTE | 2018-09-22 18:00 | Progress Notes ---
DATE: 09/21/2018 SUBJECTIVE: The patient is in bed, awake, alert. He was on the phone. The patient's left arm weakness as before with left leg. The patient complains of headache. No seizures. The patient has been ordered for MRI, has not been done. The patient tells me that he had an MRI done at [place] with contrast. The patient had CT scan only. The patient's otherwise speech is okay. MEDICATIONS: Decadron 4 mg q. 6 hours, we will reduce that down to every 12 hours; Flexeril; Depakote; Keppra; lithium; and morphine. PHYSICAL EXAMINATION: VITAL SIGNS: Temperature 98.2, blood pressure 124/73, and pulse is 64. NECK: Supple, no bruits. HEART: Sounds S1, S2. LUNGS: Clear. NEUROLOGIC: The patient is awake. The patient answers questions. He gives me coherent answers. Pupils react to light. Full eye movement. Left facial weakness. Motor: No movement of the left arm. Moves the left leg more. INVESTIGATIONS: CT scan here shows mass in right side of the brain, extensive mass, large, with a shift from the right to the left. The patient's CT scan of the chest is okay. No abnormalities. The patient has been seen by oncologist. No definite underlying etiology. Results from [place], biopsy is still pending. ASSESSMENT: The patient has mass in the right brain, with significant shift. The patient has been on Decadron, still headache. The patient needs an MRI. This has been done in the past. There is an issue that they cannot be done because of metal in the clavicle. The patient in addition significant mass with mass effect. Need to be transferred to a tertiary center where neurosurgical service is available. For the time being, I plan to continue with Ronny. Continue reduce the Decadron dosage. Try to get an MRI done if not repeat CT scan. JOB# [id number]
--- NOTE | 2018-09-22 23:58 | Progress Notes ---
DATE: 09/22/2018 SUBJECTIVE: Case was discussed with staff of the patient, reviewed records. The patient seems to be calm, cooperative, sleeping well, eating well, waiting for the results of the brain biopsy he is saying. He denies any intent to harm himself or anybody. He denies auditory or visual hallucinations or paranoia. He denies any side effects. The patient will follow up with Psychiatry on discharge. Thank you very much for allowing me to participate in the care of this most interesting gentleman. JOB# [id number]
[2018-09-23 05:44] LABS: HEMATOCRIT 42.7 % (41.0-60); HEMOGLOBIN 14.4 gm/dL (12-16); MEAN CELL VOLUME 90.1 fl (80-99); MEAN CORPUSCULAR HEMOGLOBIN 30.3 pg (26.0-30.0); MEAN CORPUSCULAR HGB CONC 33.7 pg (28.0-36.0); MEAN PLATELET VOLUME 8.1 fl; PLATELET COUNT 217 Th/cmm (150-400); RED BLOOD COUNT 4.74 Mil/cmm (4.30-5.70); RED CELL DISTRIBUTION WIDTH 12.3 % (11.5-20.0); WHITE BLOOD COUNT 13.3 Th/cmm (4.8-10.8)
[2018-09-23 06:04] LABS: ANION GAP 13.1 (7.0-16.0); BUN - UREA NITROGEN 18 mg/dL (7-25); CALCIUM SERUM 9.8 mg/dL (8.6-10.3); CARBON DIOXIDE 25.2 mEq/L (21.0-31.0); CHLORIDE 106 mEq/L (98-107); CREATININE - SERUM 0.6 mg/dL (0.7-1.3); GFR AFRICAN-AMERICAN > 60.0 ml/min (>90); GFR NON AFRICAN-AMERICAN > 60.0 ml/min; GLUCOSE 118 mg/dL (70-105); POTASSIUM SERUM 4.3 mEq/L (3.5-5.1); SODIUM SERUM 140 mEq/L (136-145)
[2018-09-23] MEDS: Morphine Sulfate 2 mg/mL 1mL Syr IVP PRN ×4 (06:13→22:17)
[2018-09-23 06:15] LABS: BAND NEUTROPHILE 6 % (0-10); LYMPHOCYTE 8 % (20-50); MONOCYTE 4 % (2-10); NEUTROPHILS 82 % (40-80); PLATELET ESTIMATE ADEQUATE (NORMAL)
[2018-09-23] MEDS: Dexamethasone Sodium Phos 4 mg/mL Vial IVP SCH ×2 (08:42→21:41)
--- NOTE | 2018-09-23 11:47 | Progress Notes ---
DATE: 09/22/2018 SUBJECTIVE: The patient in bed, awake and alert. No seizures. On and off headache. OBJECTIVE: VITAL SIGNS: Temperature 98.5, blood pressure 130/76, pulse is 66. NECK: Supple. NEUROLOGIC: The patient answers questions. Left-sided weakness of the arm. The patient has left facial weakness. Leg not too bad. INVESTIGATIONS: 1. Ordered a CAT scan of the brain. 2. Biopsy results still pending. ASSESSMENT: 1. The patient with massive right brain significant shift. Continue the patient on Decadron. 2. The patient's MRI ordered, not done. We will do a CAT scan with contrast. The patient needs to be referred to tertiary center with Neurosurgical and Neuro Oncology Services. 3. Continue Ronny for the time being. JOB# [id number]
--- NOTE | 2018-09-23 12:19 | Diagnostic Imaging Report ---
Head CT without intravenous contrast Indication: Tumor Comparison: Head CT on 09/16/2018 Technique: Axial images were obtained from the vertex to the skull base without IV contrast. Coronal reconstructions were made. Total DLP: 667 , [id number] FINDINGS: Images of the brain obtained without contrast again demonstrate diffuse ill-defined low-attenuation changes and edema seen along the right basal ganglia extending to the right temporal lobe region with associated mass effect and compression of the lateral ventricle. The degree of mass effect has slightly increased. There is now 3 mm right left midline shift. No gross hemorrhage is identified. Postsurgical changes of right frontal lobe is noted with evidence of previous right frontal craniotomy. No evidence of a skull fracture or focal soft tissue swelling. IMPRESSION: Persistent ill-defined vasogenic edema throughout the right temporal lobe extending to the right basal ganglia region with probable underlying mass lesion along the right basal ganglia. The degree of edema and mass effect has slightly decreased since prior exam. 3 mm right to left midline shift is again noted. Clinical correlation and follow-up is recommended No evidence of gross hemorrhage.
--- NOTE | 2018-09-23 12:23 | Internal Medicine Prog Note ---
Internal Medicine Subjective - Subjective Patient seen and examined:: chart reviewed Patient is:: awake, verbal, other (left-sided weakness of arm, left facial weakness) Per staff patient has:: no adverse event Internal Medicine Objective - Results Result Diagrams: 09/23/18 04:54 09/23/18 04:54 Recent Labs: Laboratory Last Values WBC 13.3 Th/cmm (4.8-10.8) H 09/23/18 04:54 RBC 4.74 Mil/cmm (4.30-5.70) 09/23/18 04:54 Hgb 14.4 gm/dL (12-16) 09/23/18 04:54 Hct 42.7 % (41.0-60) 09/23/18 04:54 MCV 90.1 fl (80-99) 09/23/18 04:54 MCH 30.3 pg (26.0-30.0) H 09/23/18 04:54 MCHC Differential 33.7 pg (28.0-36.0) 09/23/18 04:54 RDW 12.3 % (11.5-20.0) 09/23/18 04:54 Plt Count 217 Th/cmm (150-400) 09/23/18 04:54 MPV 8.1 fl 09/23/18 04:54 Add Manual Diff YES 09/23/18 04:54 Neutrophils % 79.3 % (40.0-80.0) 09/22/18 04:40 Band Neutrophils % 6 % (0-10) 09/23/18 04:54 Lymphocytes % 14.8 % (20.0-50.0) L 09/22/18 04:40 Monocytes % 5.4 % (2.0-10.0) 09/22/18 04:40 Eosinophils % 0.4 % (0.0-5.0) 09/22/18 04:40 Basophils % 0.1 % (0.0-2.0) 09/22/18 04:40 Neutrophils (Manual) 82 % (40-80) H 09/23/18 04:54 Lymphocytes 8 % (20-50) L 09/23/18 04:54 Monocytes 4 % (2-10) 09/23/18 04:54 Platelet Estimate ADEQUATE (NORMAL) 09/23/18 04:54 PT 9.9 SECONDS (9.5-11.5) 09/16/18 10:00 INR 0.95 (0.5-1.4) 09/16/18 10:00 Sodium 140 mEq/L (136-145) 09/23/18 04:54 Potassium 4.3 mEq/L (3.5-5.1) 09/23/18 04:54 Chloride 106 mEq/L (98-107) 09/23/18 04:54 Carbon Dioxide 25.2 mEq/L (21.0-31.0) 09/23/18 04:54 Anion Gap 13.1 (7.0-16.0) 09/23/18 04:54 BUN 18 mg/dL (7-25) 09/23/18 04:54 Creatinine 0.6 mg/dL (0.7-1.3) L 09/23/18 04:54 Est GFR ( Amer) > 60.0 ml/min (>90) 09/23/18 04:54 Est GFR (Non-Af Amer) > 60.0 ml/min 09/23/18 04:54 BUN/Creatinine Ratio 30.0 09/23/18 04:54 Glucose 118 mg/dL (70-105) H 09/23/18 04:54 Calcium 9.8 mg/dL (8.6-10.3) 09/23/18 04:54 Total Bilirubin 0.4 mg/dL (0.3-1.0) 09/22/18 04:40 AST 9 U/L (13-39) L 09/22/18 04:40 ALT 12 U/L (7-52) 09/22/18 04:40 Alkaline Phosphatase 60 U/L (34-104) 09/22/18 04:40 Creatine Kinase 18 U/L (30-223) L 09/16/18 10:00 Troponin I 0.01 ng/mL (0.01-0.05) 09/16/18 10:00 B-Natriuretic Peptide 5.2 pg/mL (5.0-100.0) 09/16/18 10:00 Total Protein 6.4 gm/dL (6.0-8.3) 09/22/18 04:40 Albumin 3.6 gm/dL (4.2-5.5) L 09/22/18 04:40 Globulin 2.8 gm/dL 09/22/18 04:40 Albumin/Globulin Ratio 1.3 (1.0-1.8) 09/22/18 04:40 Triglycerides 156 mg/dL (<150) H 09/16/18 10:00 Cholesterol 152 mg/dL (<200) 09/16/18 10:00 LDL Cholesterol Direct 96 mg/dL (75-193) 09/16/18 10:00 HDL Cholesterol 37 mg/dL (23-92) 09/16/18 10:00 Valproic Acid 92.2 ug/mL (50.0-100.0) 09/23/18 04:54 - Physical Exam Vitals and I&O: Vital Signs Temp 97.1 F 09/23/18 11:40 Pulse 64 09/23/18 11:40 Resp 18 09/23/18 11:40 BP 118/70 09/23/18 11:40 Pulse Ox 93 09/23/18 11:40 Intake & Output 09/22/18 09/23/18 09/23/18 18:59 06:59 18:59 Intake Total 1200 Balance 1200 Weight (lbs) 94.347 kg Intake: Oral 1200 Other: # Voids 5 # Bowel Movements 1 Stool Characteristics Formed Formed Weight Source Bedscale Active Medications: Current Medications Bisacodyl (Dulcolax 10 Mg Supp) 10 mg RC DAILY PRN PRN Reason: Constipation Stop: 11/16/18 07:46 Cyclobenzaprine HCl (Flexeril) 10 mg PO TID [facility] Stop: 11/16/18 08:59 Last Admin: 09/23/18 08:42 Dose: 10 mg Dexamethasone Sodium Phosphate (Decadron) 4 mg IVP Q12HR [facility] Stop: 11/21/18 08:59 Last Admin: 09/23/18 08:42 Dose: 4 mg Divalproex Sodium (Depakote Er) 1,500 mg PO HS [facility]; Protocol Stop: 11/15/18 21:49 Last Admin: 09/22/18 21:52 Dose: 1,500 mg Docusate Sodium (Colace) 200 mg PO BID [facility] Stop: 11/19/18 16:59 Last Admin: 09/23/18 08:42 Dose: 200 mg Levetiracetam (Keppra) 500 mg PO BID [facility] Stop: 11/17/18 08:59 Last Admin: 09/23/18 08:42 Dose: 500 mg [place] Carbonate (Eskalith) 800 mg PO HS [facility]; Protocol Stop: 11/18/18 20:59 Last Admin: 09/22/18 21:51 Dose: 800 mg Magnesium Hydroxide (Milk Of Magnesia) 30 ml PO HS PRN PRN Reason: Constipation Stop: 11/19/18 15:18 Last Admin: 09/21/18 08:28 Dose: 30 ml Morphine Sulfate (Morphine) 2 mg IVP Q4HR PRN PRN Reason: Pain (Severe) Stop: 11/15/18 18:04 Last Admin: 09/23/18 10:06 Dose: 2 mg Morphine Sulfate (Morphine) 1 mg IVP Q4HR PRN PRN Reason: Pain (Moderate) Stop: 11/15/18 18:03 Last Admin: 09/20/18 17:05 Dose: 1 mg Ondansetron HCl (Zofran) 4 mg IV Q6H PRN PRN Reason: Nausea / Vomiting Stop: 11/15/18 18:05 Quetiapine Fumarate (Seroquel Xr) 800 mg PO HS [facility]; Protocol Stop: 11/18/18 20:59 Last Admin: 09/22/18 22:53 Dose: 800 mg Temazepam (Restoril) 15 mg PO HS PRN; Protocol PRN Reason: Insomnia Stop: 11/16/18 11:11 Last Admin: 09/22/18 21:51 Dose: 15 mg General: alert HEENT: NC/AT Neck: Supple Lungs: CTAB Cardiovascular: RRR, Normal S1, Normal S2 Abdomen: soft, non-tender Extremities: clear Neurological: no change, other (left-sided weakness) Internal Medicine Assmt/Plan - Assessment Assessment: brain tumor with mass effect syncopal episode h/o htn h/o hyperlipidemia h/o seizures h/o dementia h/o peptic ulcer disease - Plan Plan: as per order sheet Nutritional Asmnt/Malnutr-PDOC - Dietary Evaluation Malnutrition Findings (Please click <Entered> for more info): Nutritional Asmnt/Malnutrition Start: 09/19/18 11: 38 Text: Status: Complete Freq: Protocol: Document 09/19/18 11:39 MMULHERN (Rec: 09/19/18 11:47 MMULHERN SHANNON- [email or web address]) Nutritional Asmnt/Malnutrition Patient General Information Nutritional Screening Moderate Risk Diagnosis Syncope R/O TIA, cardiac arrythmias Pertinent Medical Hx/Surgical Hx HTN, diabetes, dyslipidemia, seizure, psych disorder Subjective Information Patient states his appetite is good and he has gained 10lb over the past few months because his appetite is so good. States he can tolerate all diet texture, no problems chewing or swallowing. Current Diet Order/ Nutrition Support Low cholesterol Patient / S.O Not Indicated Pertinent Medications Dulcolax, Zofran Pertinent Labs (09/16) Albumin 3.8, TAG 156 Nutritional Hx/Data Height 1.75 m Height (Calculated Centimeters) 175.3 Current Weight (lbs) 84.368 kg Weight (Calculated Kilograms) 84.4 Weight (Calculated Grams) 62605.2 [place] Body Weight 160 % [place] Body Weight 116 Body Mass Index (BMI) 27.4 Recent Weight Change No Weight Status Overweight GI Symptoms GI Symptoms None Last BM none noted since admission Difficult in: None Food Allergies No Cultural/Ethnic/Taoism Belief none indicated Usual diet at home unknown Skin Integrity/Comment: Connor 16, Intact, dilan/ incision on right upper head Current %PO Good (75-100%) Estimated Nutritional Goals BEE in Kcals: Using Current wt Calories/Kcals/Kg 22-27 kcal/kg using CBW 84.5 kg Kcals Calculated 6292-4193 kcal/day Protein: Using Current wt Protein g/k.8-1 gm/kg Protein Calculated 70-85 gm/day Fluid: ml ~9980-2893 ml/day Nutritional Problem 1. Problem Problem No nutrition diagnosis at this time Intervention/Recommendation Comments 1. Continue low cholesterol diet as tolerated by patient. Expected Outcomes/Goals Expected Outcomes/Goals Oral intake >75% of meals, weight stable, nutrition related labs WNL
--- NOTE | 2018-09-23 14:34 | General Progress Note ---
Subjective - Review of Systems Service Date: 09/23/18 Subjective: Patient has no complaint of headache dizziness Objective - Results Result Diagrams: 09/23/18 04:54 09/23/18 04:54 Recent Labs: Laboratory Last Values WBC 13.3 Th/cmm (4.8-10.8) H 09/23/18 04:54 RBC 4.74 Mil/cmm (4.30-5.70) 09/23/18 04:54 Hgb 14.4 gm/dL (12-16) 09/23/18 04:54 Hct 42.7 % (41.0-60) 09/23/18 04:54 MCV 90.1 fl (80-99) 09/23/18 04:54 MCH 30.3 pg (26.0-30.0) H 09/23/18 04:54 MCHC Differential 33.7 pg (28.0-36.0) 09/23/18 04:54 RDW 12.3 % (11.5-20.0) 09/23/18 04:54 Plt Count 217 Th/cmm (150-400) 09/23/18 04:54 MPV 8.1 fl 09/23/18 04:54 Add Manual Diff YES 09/23/18 04:54 Neutrophils % 79.3 % (40.0-80.0) 09/22/18 04:40 Band Neutrophils % 6 % (0-10) 09/23/18 04:54 Lymphocytes % 14.8 % (20.0-50.0) L 09/22/18 04:40 Monocytes % 5.4 % (2.0-10.0) 09/22/18 04:40 Eosinophils % 0.4 % (0.0-5.0) 09/22/18 04:40 Basophils % 0.1 % (0.0-2.0) 09/22/18 04:40 Neutrophils (Manual) 82 % (40-80) H 09/23/18 04:54 Lymphocytes 8 % (20-50) L 09/23/18 04:54 Monocytes 4 % (2-10) 09/23/18 04:54 Platelet Estimate ADEQUATE (NORMAL) 09/23/18 04:54 PT 9.9 SECONDS (9.5-11.5) 09/16/18 10:00 INR 0.95 (0.5-1.4) 09/16/18 10:00 Sodium 140 mEq/L (136-145) 09/23/18 04:54 Potassium 4.3 mEq/L (3.5-5.1) 09/23/18 04:54 Chloride 106 mEq/L (98-107) 09/23/18 04:54 Carbon Dioxide 25.2 mEq/L (21.0-31.0) 09/23/18 04:54 Anion Gap 13.1 (7.0-16.0) 09/23/18 04:54 BUN 18 mg/dL (7-25) 09/23/18 04:54 Creatinine 0.6 mg/dL (0.7-1.3) L 09/23/18 04:54 Est GFR ( Amer) > 60.0 ml/min (>90) 09/23/18 04:54 Est GFR (Non-Af Amer) > 60.0 ml/min 09/23/18 04:54 BUN/Creatinine Ratio 30.0 09/23/18 04:54 Glucose 118 mg/dL (70-105) H 09/23/18 04:54 Calcium 9.8 mg/dL (8.6-10.3) 09/23/18 04:54 Total Bilirubin 0.4 mg/dL (0.3-1.0) 09/22/18 04:40 AST 9 U/L (13-39) L 09/22/18 04:40 ALT 12 U/L (7-52) 09/22/18 04:40 Alkaline Phosphatase 60 U/L (34-104) 09/22/18 04:40 Creatine Kinase 18 U/L (30-223) L 09/16/18 10:00 Troponin I 0.01 ng/mL (0.01-0.05) 09/16/18 10:00 B-Natriuretic Peptide 5.2 pg/mL (5.0-100.0) 09/16/18 10:00 Total Protein 6.4 gm/dL (6.0-8.3) 09/22/18 04:40 Albumin 3.6 gm/dL (4.2-5.5) L 09/22/18 04:40 Globulin 2.8 gm/dL 09/22/18 04:40 Albumin/Globulin Ratio 1.3 (1.0-1.8) 09/22/18 04:40 Triglycerides 156 mg/dL (<150) H 09/16/18 10:00 Cholesterol 152 mg/dL (<200) 09/16/18 10:00 LDL Cholesterol Direct 96 mg/dL (75-193) 09/16/18 10:00 HDL Cholesterol 37 mg/dL (23-92) 09/16/18 10:00 Valproic Acid 92.2 ug/mL (50.0-100.0) 09/23/18 04:54 - Physical Exam Vitals and I&O: Vital Signs Temp 97.1 F 09/23/18 11:40 Pulse 64 09/23/18 11:40 Resp 18 09/23/18 12:00 BP 118/70 09/23/18 11:40 Pulse Ox 93 09/23/18 11:40 Intake & Output 09/22/18 09/23/18 09/23/18 18:59 06:59 18:59 Intake Total 1200 Balance 1200 Weight (lbs) 94.347 kg Intake: Oral 1200 Other: # Voids 5 # Bowel Movements 1 Stool Characteristics Formed Formed Weight Source Bedscale Active Medications: Current Medications Bisacodyl (Dulcolax 10 Mg Supp) 10 mg RC DAILY PRN PRN Reason: Constipation Stop: 11/16/18 07:46 Cyclobenzaprine HCl (Flexeril) 10 mg PO TID [facility] Stop: 11/16/18 08:59 Last Admin: 09/23/18 08:42 Dose: 10 mg Dexamethasone Sodium Phosphate (Decadron) 4 mg IVP Q12HR [facility] Stop: 11/21/18 08:59 Last Admin: 09/23/18 08:42 Dose: 4 mg Divalproex Sodium (Depakote Er) 1,500 mg PO HS [facility]; Protocol Stop: 11/15/18 21:49 Last Admin: 09/22/18 21:52 Dose: 1,500 mg Docusate Sodium (Colace) 200 mg PO BID [facility] Stop: 11/19/18 16:59 Last Admin: 09/23/18 08:42 Dose: 200 mg Levetiracetam (Keppra) 500 mg PO BID [facility] Stop: 11/17/18 08:59 Last Admin: 09/23/18 08:42 Dose: 500 mg [place] Carbonate (Eskalith) 800 mg PO HS [facility]; Protocol Stop: 11/18/18 20:59 Last Admin: 09/22/18 21:51 Dose: 800 mg Magnesium Hydroxide (Milk Of Magnesia) 30 ml PO HS PRN PRN Reason: Constipation Stop: 11/19/18 15:18 Last Admin: 09/21/18 08:28 Dose: 30 ml Morphine Sulfate (Morphine) 2 mg IVP Q4HR PRN PRN Reason: Pain (Severe) Stop: 11/15/18 18:04 Last Admin: 09/23/18 10:06 Dose: 2 mg Morphine Sulfate (Morphine) 1 mg IVP Q4HR PRN PRN Reason: Pain (Moderate) Stop: 11/15/18 18:03 Last Admin: 09/20/18 17:05 Dose: 1 mg Ondansetron HCl (Zofran) 4 mg IV Q6H PRN PRN Reason: Nausea / Vomiting Stop: 11/15/18 18:05 Quetiapine Fumarate (Seroquel Xr) 800 mg PO HS [facility]; Protocol Stop: 11/18/18 20:59 Last Admin: 09/22/18 22:53 Dose: 800 mg Temazepam (Restoril) 15 mg PO HS PRN; Protocol PRN Reason: Insomnia Stop: 11/16/18 11:11 Last Admin: 09/22/18 21:51 Dose: 15 mg General: Alert (awake) HEENT: Atraumatic, Other (normal) Neck: Supple, JVD (normal), +2 carotid pulse wo bruit Cardiovascular: Normal S1 Lungs: Clear to auscultation Abdomen: Bowel sounds, Soft Extremities: Pulses (normal) Neurological: Other (left hemiplegia) Assessment/Plan - Assessment Assessment: 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 Hypertension Diabetes mellitus type 2 Hyperlipidemia Seizure disorder - Plan Plan: Continue physical therapy awaking brain biopsy report Nutritional Asmnt/Malnutr-PDOC - Dietary Evaluation Malnutrition Findings (Please click <Entered> for more info): Nutritional Asmnt/Malnutrition Start: 09/19/18 11: 38 Text: Status: Complete Freq: Protocol: Document 09/19/18 11:39 MMULHERN (Rec: 09/19/18 11:47 MMULHERN SHANNON- [email or web address]) Nutritional Asmnt/Malnutrition Patient General Information Nutritional Screening Moderate Risk Diagnosis Syncope R/O TIA, cardiac arrythmias Pertinent Medical Hx/Surgical Hx HTN, diabetes, dyslipidemia, seizure, psych disorder Subjective Information Patient states his appetite is good and he has gained 10lb over the past few months because his appetite is so good. States he can tolerate all diet texture, no problems chewing or swallowing. Current Diet Order/ Nutrition Support Low cholesterol Patient / S.O Not Indicated Pertinent Medications Dulcolax, Zofran Pertinent Labs (09/16) Albumin 3.8, TAG 156 Nutritional Hx/Data Height 1.75 m Height (Calculated Centimeters) 175.3 Current Weight (lbs) 84.368 kg Weight (Calculated Kilograms) 84.4 Weight (Calculated Grams) 87487.2 [place] Body Weight 160 % [place] Body Weight 116 Body Mass Index (BMI) 27.4 Recent Weight Change No Weight Status Overweight GI Symptoms GI Symptoms None Last BM none noted since admission Difficult in: None Food Allergies No Cultural/Ethnic/Orthodox Belief none indicated Usual diet at home unknown Skin Integrity/Comment: [place] 16, Intact, dilan/ incision on right upper head Current %PO Good (75-100%) Estimated Nutritional Goals BEE in Kcals: Using Current wt Calories/Kcals/Kg 22-27 kcal/kg using CBW 84.5 kg Kcals Calculated 2449-5853 kcal/day Protein: Using Current wt Protein g/k.8-1 gm/kg Protein Calculated 70-85 gm/day Fluid: ml ~9159-4243 ml/day Nutritional Problem 1. Problem Problem No nutrition diagnosis at this time Intervention/Recommendation Comments 1. Continue low cholesterol diet as tolerated by patient. Expected Outcomes/Goals Expected Outcomes/Goals Oral intake >75% of meals, weight stable, nutrition related labs WNL
--- NOTE | 2018-09-23 21:28 | Progress Notes ---
DATE: 09/23/2018 SUMMARY: Case was discussed with staff of the patient and reviewed records. The patient is more or less stable, sleeping well and eating well. He is compliant with the medication with no side effects. He denies hearing any voices. He is waiting for his brain biopsy result. Depakote level was less than 10. He is on his dose of Depakote as well as lithium. His Depakote level was low upon admission. I will be ordering to recheck the level for the lithium as well as Depakote level. Thank you very much for allowing me to participate in the care of this most interesting gentleman. JOB# [id number]
[2018-09-24] MEDS: Morphine Sulfate 2 mg/mL 1mL Syr IVP PRN ×5 (04:15→20:16)
[2018-09-24 07:23] LABS: % BASOPHILS 0.1 % (0.0-2.0); % EOSINOPHILS 0.7 % (0.0-5.0); % LYMPHOCYTES 13.4 % (20.0-50.0); % MONOCYTES 3.6 % (2.0-10.0); % NEUTROPHILS 82.2 % (40.0-80.0); EOSINOPHILE ABSOLUTE 0.1 Th/cmm (0.1-0.4); HEMATOCRIT 43.2 % (41.0-60); HEMOGLOBIN 14.2 gm/dL (12-16); LYMPHOCYTE ABSOLUTE 1.3 Th/cmm (1.5-3.0); MEAN CELL VOLUME 91.1 fl (80-99); MEAN PLATELET VOLUME 7.8 fl; MONOCYTE ABSOLUTE 0.4 Th/cmm (0.3-1.0); NEUTROPHILE ABSOLUTE 8.2 Th/cmm (1.8-8.0); PLATELET COUNT 221 Th/cmm (150-400); RED BLOOD COUNT 4.74 Mil/cmm (4.30-5.70); RED CELL DISTRIBUTION WIDTH 12.3 % (11.5-20.0)
[2018-09-24 07:36] LABS: ANION GAP 12.5 (7.0-16.0); BUN - UREA NITROGEN 17 mg/dL (7-25); CALCIUM SERUM 9.8 mg/dL (8.6-10.3); CARBON DIOXIDE 27.6 mEq/L (21.0-31.0); CHLORIDE 104 mEq/L (98-107); CREATININE - SERUM 0.6 mg/dL (0.7-1.3); GFR AFRICAN-AMERICAN > 60.0 ml/min (>90); GFR NON AFRICAN-AMERICAN > 60.0 ml/min; GLUCOSE 127 mg/dL (70-105); POTASSIUM SERUM 4.1 mEq/L (3.5-5.1); SODIUM SERUM 140 mEq/L (136-145)
[2018-09-24] MEDS: Dexamethasone Sodium Phos 4 mg/mL Vial IVP SCH ×2 (08:36→20:24)
--- NOTE | 2018-09-24 12:15 | General Progress Note ---
Subjective - Review of Systems Service Date: 09/24/18 Subjective: Patient has no complaint of headache dizziness awaiting biopsy report Objective - Results Result Diagrams: 09/24/18 06:26 09/24/18 06:26 Recent Labs: Laboratory Last Values WBC 10.0 Th/cmm (4.8-10.8) 09/24/18 06:26 RBC 4.74 Mil/cmm (4.30-5.70) 09/24/18 06:26 Hgb 14.2 gm/dL (12-16) 09/24/18 06:26 Hct 43.2 % (41.0-60) 09/24/18 06:26 MCV 91.1 fl (80-99) 09/24/18 06:26 MCH 30.0 pg (26.0-30.0) 09/24/18 06:26 MCHC Differential 33.0 pg (28.0-36.0) 09/24/18 06:26 RDW 12.3 % (11.5-20.0) 09/24/18 06:26 Plt Count 221 Th/cmm (150-400) 09/24/18 06:26 MPV 7.8 fl 09/24/18 06:26 Add Manual Diff YES 09/23/18 04:54 Neutrophils % 82.2 % (40.0-80.0) H 09/24/18 06:26 Band Neutrophils % 6 % (0-10) 09/23/18 04:54 Lymphocytes % 13.4 % (20.0-50.0) L 09/24/18 06:26 Monocytes % 3.6 % (2.0-10.0) 09/24/18 06:26 Eosinophils % 0.7 % (0.0-5.0) 09/24/18 06:26 Basophils % 0.1 % (0.0-2.0) 09/24/18 06:26 Neutrophils (Manual) 82 % (40-80) H 09/23/18 04:54 Lymphocytes 8 % (20-50) L 09/23/18 04:54 Monocytes 4 % (2-10) 09/23/18 04:54 Platelet Estimate ADEQUATE (NORMAL) 09/23/18 04:54 PT 9.9 SECONDS (9.5-11.5) 09/16/18 10:00 INR 0.95 (0.5-1.4) 09/16/18 10:00 Sodium 140 mEq/L (136-145) 09/24/18 06:26 Potassium 4.1 mEq/L (3.5-5.1) 09/24/18 06:26 Chloride 104 mEq/L (98-107) 09/24/18 06:26 Carbon Dioxide 27.6 mEq/L (21.0-31.0) 09/24/18 06:26 Anion Gap 12.5 (7.0-16.0) 09/24/18 06:26 BUN 17 mg/dL (7-25) 09/24/18 06:26 Creatinine 0.6 mg/dL (0.7-1.3) L 09/24/18 06:26 Est GFR ( Amer) > 60.0 ml/min (>90) 09/24/18 06:26 Est GFR (Non-Af Amer) > 60.0 ml/min 09/24/18 06:26 BUN/Creatinine Ratio 28.3 09/24/18 06:26 Glucose 127 mg/dL (70-105) H 09/24/18 06:26 Calcium 9.8 mg/dL (8.6-10.3) 09/24/18 06:26 Total Bilirubin 0.4 mg/dL (0.3-1.0) 09/22/18 04:40 AST 9 U/L (13-39) L 09/22/18 04:40 ALT 12 U/L (7-52) 09/22/18 04:40 Alkaline Phosphatase 60 U/L (34-104) 09/22/18 04:40 Creatine Kinase 18 U/L (30-223) L 09/16/18 10:00 Troponin I 0.01 ng/mL (0.01-0.05) 09/16/18 10:00 B-Natriuretic Peptide 5.2 pg/mL (5.0-100.0) 09/16/18 10:00 Total Protein 6.4 gm/dL (6.0-8.3) 09/22/18 04:40 Albumin 3.6 gm/dL (4.2-5.5) L 09/22/18 04:40 Globulin 2.8 gm/dL 09/22/18 04:40 Albumin/Globulin Ratio 1.3 (1.0-1.8) 09/22/18 04:40 Triglycerides 156 mg/dL (<150) H 09/16/18 10:00 Cholesterol 152 mg/dL (<200) 09/16/18 10:00 LDL Cholesterol Direct 96 mg/dL (75-193) 09/16/18 10:00 HDL Cholesterol 37 mg/dL (23-92) 09/16/18 10:00 Valproic Acid 92.2 ug/mL (50.0-100.0) 09/23/18 04:54 [place] 0.84 mmol/L (0.5-1.0) 09/23/18 04:54 - Physical Exam Vitals and I&O: Vital Signs Temp 96.3 F 09/24/18 08:00 Pulse 63 09/24/18 08:00 Resp 18 09/24/18 08:00 BP 125/72 09/24/18 08:00 Pulse Ox 95 09/24/18 08:00 Intake & Output 09/23/18 09/24/18 09/24/18 18:59 06:59 18:59 Intake Total 950 500 Balance 950 500 Weight (lbs) 94.347 kg 94.064 kg Intake: Oral 950 500 Other: # Voids 3 4 # Bowel Movements 1 1 Weight Source Bedscale Bedscale Active Medications: Current Medications Bisacodyl (Dulcolax 10 Mg Supp) 10 mg RC DAILY PRN PRN Reason: Constipation Stop: 11/16/18 07:46 Cyclobenzaprine HCl (Flexeril) 10 mg PO TID [facility] Stop: 11/16/18 08:59 Last Admin: 09/24/18 08:36 Dose: 10 mg Dexamethasone Sodium Phosphate (Decadron) 4 mg IVP Q12HR [facility] Stop: 11/21/18 08:59 Last Admin: 09/24/18 08:36 Dose: 4 mg Divalproex Sodium (Depakote Er) 1,500 mg PO HS [facility]; Protocol Stop: 11/15/18 21:49 Last Admin: 09/23/18 20:29 Dose: 1,500 mg Docusate Sodium (Colace) 200 mg PO BID [facility] Stop: 11/19/18 16:59 Last Admin: 09/24/18 08:36 Dose: 200 mg Levetiracetam (Keppra) 500 mg PO BID [facility] Stop: 11/17/18 08:59 Last Admin: 09/24/18 08:36 Dose: 500 mg [place] Carbonate (Eskalith) 800 mg PO HS [facility]; Protocol Stop: 11/18/18 20:59 Last Admin: 09/23/18 20:30 Dose: 800 mg Magnesium Hydroxide (Milk Of Magnesia) 30 ml PO HS PRN PRN Reason: Constipation Stop: 11/19/18 15:18 Last Admin: 09/21/18 08:28 Dose: 30 ml Morphine Sulfate (Morphine) 2 mg IVP Q4HR PRN PRN Reason: Pain (Severe) Stop: 11/15/18 18:04 Last Admin: 09/24/18 08:35 Dose: 2 mg Morphine Sulfate (Morphine) 1 mg IVP Q4HR PRN PRN Reason: Pain (Moderate) Stop: 11/15/18 18:03 Last Admin: 09/20/18 17:05 Dose: 1 mg Ondansetron HCl (Zofran) 4 mg IV Q6H PRN PRN Reason: Nausea / Vomiting Stop: 11/15/18 18:05 Quetiapine Fumarate (Seroquel Xr) 800 mg PO HS [facility]; Protocol Stop: 11/18/18 20:59 Last Admin: 09/23/18 20:28 Dose: 800 mg Temazepam (Restoril) 15 mg PO HS PRN; Protocol PRN Reason: Insomnia Stop: 11/16/18 11:11 Last Admin: 09/22/18 21:51 Dose: 15 mg General: Alert (awake) HEENT: Atraumatic, Other (normal) Neck: Supple, JVD (normal), +2 carotid pulse wo bruit Cardiovascular: Normal S1 Lungs: Clear to auscultation Abdomen: Bowel sounds, Soft Extremities: Pulses (normal) Neurological: Other (left hemiplegia) Assessment/Plan - Assessment Assessment: 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 Hypertension Diabetes mellitus type 2 Hyperlipidemia Seizure disorder - Plan Plan: Continue physical therapy awaking brain biopsy report Nutritional Asmnt/Malnutr-PDOC - Dietary Evaluation Malnutrition Findings (Please click <Entered> for more info): Nutritional Asmnt/Malnutrition Start: 09/19/18 11: 38 Text: Status: Complete Freq: Protocol: Document 09/19/18 11:39 MMULHERN (Rec: 09/19/18 11:47 HALEY ORTEGA- FNS1) Nutritional Asmnt/Malnutrition Patient General Information Nutritional Screening Moderate Risk Diagnosis Syncope R/O TIA, cardiac arrythmias Pertinent Medical Hx/Surgical Hx HTN, diabetes, dyslipidemia, seizure, psych disorder Subjective Information Patient states his appetite is good and he has gained 10lb over the past few months because his appetite is so good. States he can tolerate all diet texture, no problems chewing or swallowing. Current Diet Order/ Nutrition Support Low cholesterol Patient / S.O Not Indicated Pertinent Medications Dulcolax, Zofran Pertinent Labs (09/16) Albumin 3.8, TAG 156 Nutritional Hx/Data Height 1.75 m Height (Calculated Centimeters) 175.3 Current Weight (lbs) 84.368 kg Weight (Calculated Kilograms) 84.4 Weight (Calculated Grams) 16790.2 [place] Body Weight 160 % [place] Body Weight 116 Body Mass Index (BMI) 27.4 Recent Weight Change No Weight Status Overweight GI Symptoms GI Symptoms None Last BM none noted since admission Difficult in: None Food Allergies No Cultural/Ethnic/Muslim Belief none indicated Usual diet at home unknown Skin Integrity/Comment: [place] 16, Intact, dilan/ incision on right upper head Current %PO Good (75-100%) Estimated Nutritional Goals BEE in Kcals: Using Current wt Calories/Kcals/Kg 22-27 kcal/kg using CBW 84.5 kg Kcals Calculated 4586-6293 kcal/day Protein: Using Current wt Protein g/k.8-1 gm/kg Protein Calculated 70-85 gm/day Fluid: ml ~9182-1782 ml/day Nutritional Problem 1. Problem Problem No nutrition diagnosis at this time Intervention/Recommendation Comments 1. Continue low cholesterol diet as tolerated by patient. Expected Outcomes/Goals Expected Outcomes/Goals Oral intake >75% of meals, weight stable, nutrition related labs WNL
--- NOTE | 2018-09-24 14:24 | Internal Medicine Prog Note ---
Internal Medicine Subjective - Subjective Patient seen and examined:: chart reviewed Patient is:: awake, verbal, in bed, other (left-sided weakness of arm, left facial weakness) Per staff patient has:: no adverse event Internal Medicine Objective - Results Result Diagrams: 09/24/18 06:26 09/24/18 06:26 Recent Labs: Laboratory Last Values WBC 10.0 Th/cmm (4.8-10.8) 09/24/18 06:26 RBC 4.74 Mil/cmm (4.30-5.70) 09/24/18 06:26 Hgb 14.2 gm/dL (12-16) 09/24/18 06:26 Hct 43.2 % (41.0-60) 09/24/18 06:26 MCV 91.1 fl (80-99) 09/24/18 06:26 MCH 30.0 pg (26.0-30.0) 09/24/18 06:26 MCHC Differential 33.0 pg (28.0-36.0) 09/24/18 06:26 RDW 12.3 % (11.5-20.0) 09/24/18 06:26 Plt Count 221 Th/cmm (150-400) 09/24/18 06:26 MPV 7.8 fl 09/24/18 06:26 Add Manual Diff YES 09/23/18 04:54 Neutrophils % 82.2 % (40.0-80.0) H 09/24/18 06:26 Band Neutrophils % 6 % (0-10) 09/23/18 04:54 Lymphocytes % 13.4 % (20.0-50.0) L 09/24/18 06:26 Monocytes % 3.6 % (2.0-10.0) 09/24/18 06:26 Eosinophils % 0.7 % (0.0-5.0) 09/24/18 06:26 Basophils % 0.1 % (0.0-2.0) 09/24/18 06:26 Neutrophils (Manual) 82 % (40-80) H 09/23/18 04:54 Lymphocytes 8 % (20-50) L 09/23/18 04:54 Monocytes 4 % (2-10) 09/23/18 04:54 Platelet Estimate ADEQUATE (NORMAL) 09/23/18 04:54 PT 9.9 SECONDS (9.5-11.5) 09/16/18 10:00 INR 0.95 (0.5-1.4) 09/16/18 10:00 Sodium 140 mEq/L (136-145) 09/24/18 06:26 Potassium 4.1 mEq/L (3.5-5.1) 09/24/18 06:26 Chloride 104 mEq/L (98-107) 09/24/18 06:26 Carbon Dioxide 27.6 mEq/L (21.0-31.0) 09/24/18 06:26 Anion Gap 12.5 (7.0-16.0) 09/24/18 06:26 BUN 17 mg/dL (7-25) 09/24/18 06:26 Creatinine 0.6 mg/dL (0.7-1.3) L 09/24/18 06:26 Est GFR ( Amer) > 60.0 ml/min (>90) 09/24/18 06:26 Est GFR (Non-Af Amer) > 60.0 ml/min 09/24/18 06:26 BUN/Creatinine Ratio 28.3 09/24/18 06:26 Glucose 127 mg/dL (70-105) H 09/24/18 06:26 Calcium 9.8 mg/dL (8.6-10.3) 09/24/18 06:26 Total Bilirubin 0.4 mg/dL (0.3-1.0) 09/22/18 04:40 AST 9 U/L (13-39) L 09/22/18 04:40 ALT 12 U/L (7-52) 09/22/18 04:40 Alkaline Phosphatase 60 U/L (34-104) 09/22/18 04:40 Creatine Kinase 18 U/L (30-223) L 09/16/18 10:00 Troponin I 0.01 ng/mL (0.01-0.05) 09/16/18 10:00 B-Natriuretic Peptide 5.2 pg/mL (5.0-100.0) 09/16/18 10:00 Total Protein 6.4 gm/dL (6.0-8.3) 09/22/18 04:40 Albumin 3.6 gm/dL (4.2-5.5) L 09/22/18 04:40 Globulin 2.8 gm/dL 09/22/18 04:40 Albumin/Globulin Ratio 1.3 (1.0-1.8) 09/22/18 04:40 Triglycerides 156 mg/dL (<150) H 09/16/18 10:00 Cholesterol 152 mg/dL (<200) 09/16/18 10:00 LDL Cholesterol Direct 96 mg/dL (75-193) 09/16/18 10:00 HDL Cholesterol 37 mg/dL (23-92) 09/16/18 10:00 Valproic Acid 92.2 ug/mL (50.0-100.0) 09/23/18 04:54 [place] 0.84 mmol/L (0.5-1.0) 09/23/18 04:54 - Physical Exam Vitals and I&O: Vital Signs Temp 97.8 F 09/24/18 12:00 Pulse 64 09/24/18 12:00 Resp 18 09/24/18 12:00 BP 132/80 09/24/18 12:00 Pulse Ox 91 09/24/18 12:00 Intake & Output 09/23/18 09/24/18 09/24/18 18:59 06:59 18:59 Intake Total 950 500 Balance 950 500 Weight (lbs) 94.347 kg 94.064 kg Intake: Oral 950 500 Other: # Voids 3 4 # Bowel Movements 1 1 Weight Source Bedscale Bedscale Active Medications: Current Medications Bisacodyl (Dulcolax 10 Mg Supp) 10 mg RC DAILY PRN PRN Reason: Constipation Stop: 11/16/18 07:46 Cyclobenzaprine HCl (Flexeril) 10 mg PO TID [facility] Stop: 11/16/18 08:59 Last Admin: 09/24/18 13:09 Dose: 10 mg Dexamethasone Sodium Phosphate (Decadron) 4 mg IVP Q12HR [facility] Stop: 11/21/18 08:59 Last Admin: 09/24/18 08:36 Dose: 4 mg Divalproex Sodium (Depakote Er) 1,500 mg PO HS [facility]; Protocol Stop: 11/15/18 21:49 Last Admin: 09/23/18 20:29 Dose: 1,500 mg Docusate Sodium (Colace) 200 mg PO BID [facility] Stop: 11/19/18 16:59 Last Admin: 09/24/18 08:36 Dose: 200 mg Levetiracetam (Keppra) 500 mg PO BID [facility] Stop: 11/17/18 08:59 Last Admin: 09/24/18 08:36 Dose: 500 mg [place] Carbonate (Eskalith) 800 mg PO HS [facility]; Protocol Stop: 11/18/18 20:59 Last Admin: 09/23/18 20:30 Dose: 800 mg [place] Hydroxide (Milk Of Magnesia) 30 ml PO HS PRN PRN Reason: Constipation Stop: 11/19/18 15:18 Last Admin: 09/21/18 08:28 Dose: 30 ml Morphine Sulfate (Morphine) 2 mg IVP Q4HR PRN PRN Reason: Pain (Severe) Stop: 11/15/18 18:04 Last Admin: 09/24/18 12:41 Dose: 2 mg Morphine Sulfate (Morphine) 1 mg IVP Q4HR PRN PRN Reason: Pain (Moderate) Stop: 11/15/18 18:03 Last Admin: 09/20/18 17:05 Dose: 1 mg Ondansetron HCl (Zofran) 4 mg IV Q6H PRN PRN Reason: Nausea / Vomiting Stop: 11/15/18 18:05 Quetiapine Fumarate (Seroquel Xr) 800 mg PO HS [facility]; Protocol Stop: 11/18/18 20:59 Last Admin: 09/23/18 20:28 Dose: 800 mg Temazepam (Restoril) 15 mg PO HS PRN; Protocol PRN Reason: Insomnia Stop: 11/16/18 11:11 Last Admin: 09/22/18 21:51 Dose: 15 mg General: alert HEENT: NC/AT Neck: Supple Lungs: CTAB Cardiovascular: RRR, Normal S1, Normal S2 Abdomen: soft, non-tender Extremities: clear Neurological: no change, other (left-sided weakness) Internal Medicine Assmt/Plan - Assessment Assessment: 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 h/o htn h/o hyperlipidemia h/o seizures h/o dementia h/o peptic ulcer disease - Plan Plan: waiting on biopsy results as per order sheet Nutritional Asmnt/Malnutr-PDOC - Dietary Evaluation Malnutrition Findings (Please click <Entered> for more info): Nutritional Asmnt/Malnutrition Start: 09/19/18 11: 38 Text: Status: Complete Freq: Protocol: Document 09/19/18 11:39 DELFINONAYABELLA (Rec: 09/19/18 11:47 ARANZABELLA ALYN- [email or web address]) Nutritional Asmnt/Malnutrition Patient General Information Nutritional Screening Moderate Risk Diagnosis Syncope R/O TIA, cardiac arrythmias Pertinent Medical Hx/Surgical Hx HTN, diabetes, dyslipidemia, seizure, psych disorder Subjective Information Patient states his appetite is good and he has gained 10lb over the past few months because his appetite is so good. States he can tolerate all diet texture, no problems chewing or swallowing. Current Diet Order/ Nutrition Support Low cholesterol Patient / S.O Not Indicated Pertinent Medications Dulcolax, Zofran Pertinent Labs (09/16) Albumin 3.8, TAG 156 Nutritional Hx/Data Height 1.75 m Height (Calculated Centimeters) 175.3 Current Weight (lbs) 84.368 kg Weight (Calculated Kilograms) 84.4 Weight (Calculated Grams) 57196.2 [place] Body Weight 160 % [place] Body Weight 116 Body Mass Index (BMI) 27.4 Recent Weight Change No Weight Status Overweight GI Symptoms GI Symptoms None Last BM none noted since admission Difficult in: None Food Allergies No Cultural/Ethnic/Rastafari Belief none indicated Usual diet at home unknown Skin Integrity/Comment: Connor 16, Intact, dilan/ incision on right upper head Current %PO Good (75-100%) Estimated Nutritional Goals BEE in Kcals: Using Current wt Calories/Kcals/Kg 22-27 kcal/kg using CBW 84.5 kg Kcals Calculated 4216-1085 kcal/day Protein: Using Current wt Protein g/k.8-1 gm/kg Protein Calculated 70-85 gm/day Fluid: ml ~5915-9441 ml/day Nutritional Problem 1. Problem Problem No nutrition diagnosis at this time Intervention/Recommendation Comments 1. Continue low cholesterol diet as tolerated by patient. Expected Outcomes/Goals Expected Outcomes/Goals Oral intake >75% of meals, weight stable, nutrition related labs WNL
--- NOTE | 2018-09-24 20:18 | General Progress Note ---
Subjective - Review of Systems Service Date: 09/24/18 Subjective: NO SZ . headache unchanged. left arm weakness, left leg weak. Objective - Results Result Diagrams: 09/24/18 06:26 09/24/18 06:26 Recent Labs: Laboratory Last Values WBC 10.0 Th/cmm (4.8-10.8) 09/24/18 06:26 RBC 4.74 Mil/cmm (4.30-5.70) 09/24/18 06:26 Hgb 14.2 gm/dL (12-16) 09/24/18 06:26 Hct 43.2 % (41.0-60) 09/24/18 06:26 MCV 91.1 fl (80-99) 09/24/18 06:26 MCH 30.0 pg (26.0-30.0) 09/24/18 06:26 MCHC Differential 33.0 pg (28.0-36.0) 09/24/18 06:26 RDW 12.3 % (11.5-20.0) 09/24/18 06:26 Plt Count 221 Th/cmm (150-400) 09/24/18 06:26 MPV 7.8 fl 09/24/18 06:26 Add Manual Diff YES 09/23/18 04:54 Neutrophils % 82.2 % (40.0-80.0) H 09/24/18 06:26 Band Neutrophils % 6 % (0-10) 09/23/18 04:54 Lymphocytes % 13.4 % (20.0-50.0) L 09/24/18 06:26 Monocytes % 3.6 % (2.0-10.0) 09/24/18 06:26 Eosinophils % 0.7 % (0.0-5.0) 09/24/18 06:26 Basophils % 0.1 % (0.0-2.0) 09/24/18 06:26 Neutrophils (Manual) 82 % (40-80) H 09/23/18 04:54 Lymphocytes 8 % (20-50) L 09/23/18 04:54 Monocytes 4 % (2-10) 09/23/18 04:54 Platelet Estimate ADEQUATE (NORMAL) 09/23/18 04:54 PT 9.9 SECONDS (9.5-11.5) 09/16/18 10:00 INR 0.95 (0.5-1.4) 09/16/18 10:00 Sodium 140 mEq/L (136-145) 09/24/18 06:26 Potassium 4.1 mEq/L (3.5-5.1) 09/24/18 06:26 Chloride 104 mEq/L (98-107) 09/24/18 06:26 Carbon Dioxide 27.6 mEq/L (21.0-31.0) 09/24/18 06:26 Anion Gap 12.5 (7.0-16.0) 09/24/18 06:26 BUN 17 mg/dL (7-25) 09/24/18 06:26 Creatinine 0.6 mg/dL (0.7-1.3) L 09/24/18 06:26 Est GFR ( Amer) > 60.0 ml/min (>90) 09/24/18 06:26 Est GFR (Non-Af Amer) > 60.0 ml/min 09/24/18 06:26 BUN/Creatinine Ratio 28.3 09/24/18 06:26 Glucose 127 mg/dL (70-105) H 09/24/18 06:26 Calcium 9.8 mg/dL (8.6-10.3) 09/24/18 06:26 Total Bilirubin 0.4 mg/dL (0.3-1.0) 09/22/18 04:40 AST 9 U/L (13-39) L 09/22/18 04:40 ALT 12 U/L (7-52) 09/22/18 04:40 Alkaline Phosphatase 60 U/L (34-104) 09/22/18 04:40 Creatine Kinase 18 U/L (30-223) L 09/16/18 10:00 Troponin I 0.01 ng/mL (0.01-0.05) 09/16/18 10:00 B-Natriuretic Peptide 5.2 pg/mL (5.0-100.0) 09/16/18 10:00 Total Protein 6.4 gm/dL (6.0-8.3) 09/22/18 04:40 Albumin 3.6 gm/dL (4.2-5.5) L 09/22/18 04:40 Globulin 2.8 gm/dL 09/22/18 04:40 Albumin/Globulin Ratio 1.3 (1.0-1.8) 09/22/18 04:40 Triglycerides 156 mg/dL (<150) H 09/16/18 10:00 Cholesterol 152 mg/dL (<200) 09/16/18 10:00 LDL Cholesterol Direct 96 mg/dL (75-193) 09/16/18 10:00 HDL Cholesterol 37 mg/dL (23-92) 09/16/18 10:00 Valproic Acid 92.2 ug/mL (50.0-100.0) 09/23/18 04:54 [place] 0.84 mmol/L (0.5-1.0) 09/23/18 04:54 - Physical Exam Vitals and I&O: Vital Signs Temp 98.8 F 09/24/18 15:45 Pulse 73 09/24/18 15:45 Resp 18 09/24/18 15:45 BP 115/72 09/24/18 15:45 Pulse Ox 94 09/24/18 15:45 Intake & Output 09/24/18 09/24/18 09/25/18 06:59 18:59 06:59 Intake Total 500 1000 Balance 500 1000 Weight (lbs) 94.064 kg 92.986 kg Intake: Oral 500 1000 Other: # Voids 4 4 # Bowel Movements 1 1 Weight Source Bedscale Bedscale Active Medications: Current Medications Bisacodyl (Dulcolax 10 Mg Supp) 10 mg RC DAILY PRN PRN Reason: Constipation Stop: 11/16/18 07:46 Cyclobenzaprine HCl (Flexeril) 10 mg PO TID [facility] Stop: 11/16/18 08:59 Last Admin: 09/24/18 13:09 Dose: 10 mg Dexamethasone Sodium Phosphate (Decadron) 4 mg IVP Q12HR [facility] Stop: 11/21/18 08:59 Last Admin: 09/24/18 08:36 Dose: 4 mg Divalproex Sodium (Depakote Er) 1,500 mg PO HS [facility]; Protocol Stop: 11/15/18 21:49 Last Admin: 09/23/18 20:29 Dose: 1,500 mg Docusate Sodium (Colace) 200 mg PO BID [facility] Stop: 11/19/18 16:59 Last Admin: 09/24/18 16:44 Dose: Not Given Levetiracetam (Keppra) 500 mg PO BID [facility] Stop: 11/17/18 08:59 Last Admin: 09/24/18 16:44 Dose: 500 mg [place] Carbonate (Eskalith) 800 mg PO HS [facility]; Protocol Stop: 11/18/18 20:59 Last Admin: 09/23/18 20:30 Dose: 800 mg Magnesium Hydroxide (Milk Of Magnesia) 30 ml PO HS PRN PRN Reason: Constipation Stop: 11/19/18 15:18 Last Admin: 09/21/18 08:28 Dose: 30 ml Morphine Sulfate (Morphine) 2 mg IVP Q4HR PRN PRN Reason: Pain (Severe) Stop: 11/15/18 18:04 Last Admin: 09/24/18 16:44 Dose: 2 mg Morphine Sulfate (Morphine) 1 mg IVP Q4HR PRN PRN Reason: Pain (Moderate) Stop: 11/15/18 18:03 Last Admin: 09/20/18 17:05 Dose: 1 mg Ondansetron HCl (Zofran) 4 mg IV Q6H PRN PRN Reason: Nausea / Vomiting Stop: 11/15/18 18:05 Quetiapine Fumarate (Seroquel Xr) 800 mg PO HS [facility]; Protocol Stop: 11/18/18 20:59 Last Admin: 09/23/18 20:28 Dose: 800 mg Temazepam (Restoril) 15 mg PO HS PRN; Protocol PRN Reason: Insomnia Stop: 11/16/18 11:11 Last Admin: 09/22/18 21:51 Dose: 15 mg General: Alert HEENT: Atraumatic Neck: Supple Cardiovascular: Normal S1 Lungs: Clear to auscultation Abdomen: Bowel sounds, Soft Extremities: Pulses (normal) Neurological: Other (left hemiplegia) Assessment/Plan - Assessment Assessment: * Brain tumor with no evidence of mets on CT chest/abd/pelvis. * awaiting path report from [place] on brain tumor biopsy Follow neuro recs and continue decadron tapering dose, awaiting path.. marlon Moreno. Nutritional Asmnt/Malnutr-PDOC - Dietary Evaluation Malnutrition Findings (Please click <Entered> for more info): Nutritional Asmnt/Malnutrition Start: 09/19/18 11: 38 Text: Status: Complete Freq: Protocol: Document 09/19/18 11:39 MMULHERN (Rec: 09/19/18 11:47 ARANZABELLA ORTEGA- FNS1) Nutritional Asmnt/Malnutrition Patient General Information Nutritional Screening Moderate Risk Diagnosis Syncope R/O TIA, cardiac arrythmias Pertinent Medical Hx/Surgical Hx HTN, diabetes, dyslipidemia, seizure, psych disorder Subjective Information Patient states his appetite is good and he has gained 10lb over the past few months because his appetite is so good. States he can tolerate all diet texture, no problems chewing or swallowing. Current Diet Order/ Nutrition Support Low cholesterol Patient / S.O Not Indicated Pertinent Medications Dulcolax, Zofran Pertinent Labs (09/16) Albumin 3.8, TAG 156 Nutritional Hx/Data Height 1.75 m Height (Calculated Centimeters) 175.3 Current Weight (lbs) 84.368 kg Weight (Calculated Kilograms) 84.4 Weight (Calculated Grams) 39396.2 [place] Body Weight 160 % [place] Body Weight 116 Body Mass Index (BMI) 27.4 Recent Weight Change No Weight Status Overweight GI Symptoms GI Symptoms None Last BM none noted since admission Difficult in: None Food Allergies No Cultural/Ethnic/Orthodoxy Belief none indicated Usual diet at home unknown Skin Integrity/Comment: [place] 16, Intact, dilan/ incision on right upper head Current %PO Good (75-100%) Estimated Nutritional Goals BEE in Kcals: Using Current wt Calories/Kcals/Kg 22-27 kcal/kg using CBW 84.5 kg Kcals Calculated 7570-7363 kcal/day Protein: Using Current wt Protein g/k.8-1 gm/kg Protein Calculated 70-85 gm/day Fluid: ml ~1438-4056 ml/day Nutritional Problem 1. Problem Problem No nutrition diagnosis at this time Intervention/Recommendation Comments 1. Continue low cholesterol diet as tolerated by patient. Expected Outcomes/Goals Expected Outcomes/Goals Oral intake >75% of meals, weight stable, nutrition related labs WNL
[2018-09-25] MEDS: Morphine Sulfate 2 mg/mL 1mL Syr IVP PRN ×5 (00:52→21:02)
--- NOTE | 2018-09-25 02:02 | Progress Notes ---
DATE: 09/24/2018 SUBJECTIVE: Chart reviewed and the patient interviewed. Also discussed the patient's condition with the staff and reviewed the records and labs. The patient is complaining of headache this morning. The patient also is still wandering about the results of the biopsy and his daughter is trying to get a complete report, although she got some information from [place] that "stage 3." He is still complaining of severe headache and complaining of some pain since the biopsy done. On the other hand, the patient is calm and cooperative with his treatment and he may continue to take Seroquel in a dose of 800 mg every bedtime with no side effect. ASSESSMENT: The patient is still depressed and needs lots of reassurance. TREATMENT PLAN: Continue monitoring his behavior and continue supportive therapy for the patient. Also, the patient also wants to go back to [facility] and working with Dr. Ko in regard to his discharge. JOB# [id number]
[2018-09-25 06:03] LABS: % BASOPHILS 0.1 % (0.0-2.0); % EOSINOPHILS 1.1 % (0.0-5.0); % LYMPHOCYTES 16.9 % (20.0-50.0); % MONOCYTES 4.5 % (2.0-10.0); % NEUTROPHILS 77.4 % (40.0-80.0); EOSINOPHILE ABSOLUTE 0.1 Th/cmm (0.1-0.4); HEMATOCRIT 39.3 % (41.0-60); HEMOGLOBIN 13.5 gm/dL (12-16); LYMPHOCYTE ABSOLUTE 1.4 Th/cmm (1.5-3.0); MEAN CELL VOLUME 88.5 fl (80-99); MEAN CORPUSCULAR HEMOGLOBIN 30.4 pg (26.0-30.0); MEAN CORPUSCULAR HGB CONC 34.3 pg (28.0-36.0); MEAN PLATELET VOLUME 8.5 fl; MONOCYTE ABSOLUTE 0.4 Th/cmm (0.3-1.0); NEUTROPHILE ABSOLUTE 6.6 Th/cmm (1.8-8.0); PLATELET COUNT 222 Th/cmm (150-400); RED BLOOD COUNT 4.44 Mil/cmm (4.30-5.70); RED CELL DISTRIBUTION WIDTH 12.3 % (11.5-20.0); WHITE BLOOD COUNT 8.5 Th/cmm (4.8-10.8)
[2018-09-25 06:17] LABS: ANION GAP 13.2 (7.0-16.0); BUN - UREA NITROGEN 19 mg/dL (7-25); CARBON DIOXIDE 24.5 mEq/L (21.0-31.0); CHLORIDE 106 mEq/L (98-107); CREATININE - SERUM 0.6 mg/dL (0.7-1.3); GFR AFRICAN-AMERICAN > 60.0 ml/min (>90); GFR NON AFRICAN-AMERICAN > 60.0 ml/min; GLUCOSE 151 mg/dL (70-105); POTASSIUM SERUM 3.7 mEq/L (3.5-5.1); SODIUM SERUM 140 mEq/L (136-145)
[2018-09-25] MEDS: Dexamethasone Sodium Phos 4 mg/mL Vial IVP SCH ×2 (08:36→21:07)
--- NOTE | 2018-09-25 15:16 | General Progress Note ---
Subjective - Review of Systems Service Date: 09/25/18 Subjective: Patient has no complaint of headache dizziness awaiting biopsy report patient has weakness on the left side Objective - Results Result Diagrams: 09/25/18 04:30 09/25/18 04:30 Recent Labs: Laboratory Last Values WBC 8.5 Th/cmm (4.8-10.8) 09/25/18 04:30 RBC 4.44 Mil/cmm (4.30-5.70) 09/25/18 04:30 Hgb 13.5 gm/dL (12-16) 09/25/18 04:30 Hct 39.3 % (41.0-60) L 09/25/18 04:30 MCV 88.5 fl (80-99) 09/25/18 04:30 MCH 30.4 pg (26.0-30.0) H 09/25/18 04:30 MCHC Differential 34.3 pg (28.0-36.0) 09/25/18 04:30 RDW 12.3 % (11.5-20.0) 09/25/18 04:30 Plt Count 222 Th/cmm (150-400) 09/25/18 04:30 MPV 8.5 fl 09/25/18 04:30 Add Manual Diff YES 09/23/18 04:54 Neutrophils % 77.4 % (40.0-80.0) 09/25/18 04:30 Band Neutrophils % 6 % (0-10) 09/23/18 04:54 Lymphocytes % 16.9 % (20.0-50.0) L 09/25/18 04:30 Monocytes % 4.5 % (2.0-10.0) 09/25/18 04:30 Eosinophils % 1.1 % (0.0-5.0) 09/25/18 04:30 Basophils % 0.1 % (0.0-2.0) 09/25/18 04:30 Neutrophils (Manual) 82 % (40-80) H 09/23/18 04:54 Lymphocytes 8 % (20-50) L 09/23/18 04:54 Monocytes 4 % (2-10) 09/23/18 04:54 Platelet Estimate ADEQUATE (NORMAL) 09/23/18 04:54 PT 9.9 SECONDS (9.5-11.5) 09/16/18 10:00 INR 0.95 (0.5-1.4) 09/16/18 10:00 Sodium 140 mEq/L (136-145) 09/25/18 04:30 Potassium 3.7 mEq/L (3.5-5.1) 09/25/18 04:30 Chloride 106 mEq/L (98-107) 09/25/18 04:30 Carbon Dioxide 24.5 mEq/L (21.0-31.0) 09/25/18 04:30 Anion Gap 13.2 (7.0-16.0) 09/25/18 04:30 BUN 19 mg/dL (7-25) 09/25/18 04:30 Creatinine 0.6 mg/dL (0.7-1.3) L 09/25/18 04:30 Est GFR ( Amer) > 60.0 ml/min (>90) 09/25/18 04:30 Est GFR (Non-Af Amer) > 60.0 ml/min 09/25/18 04:30 BUN/Creatinine Ratio 31.7 09/25/18 04:30 Glucose 151 mg/dL (70-105) H 09/25/18 04:30 Calcium 9.0 mg/dL (8.6-10.3) 09/25/18 04:30 Total Bilirubin 0.4 mg/dL (0.3-1.0) 09/22/18 04:40 AST 9 U/L (13-39) L 09/22/18 04:40 ALT 12 U/L (7-52) 09/22/18 04:40 Alkaline Phosphatase 60 U/L (34-104) 09/22/18 04:40 Creatine Kinase 18 U/L (30-223) L 09/16/18 10:00 Troponin I 0.01 ng/mL (0.01-0.05) 09/16/18 10:00 B-Natriuretic Peptide 5.2 pg/mL (5.0-100.0) 09/16/18 10:00 Total Protein 6.4 gm/dL (6.0-8.3) 09/22/18 04:40 Albumin 3.6 gm/dL (4.2-5.5) L 09/22/18 04:40 Globulin 2.8 gm/dL 09/22/18 04:40 Albumin/Globulin Ratio 1.3 (1.0-1.8) 09/22/18 04:40 Triglycerides 156 mg/dL (<150) H 09/16/18 10:00 Cholesterol 152 mg/dL (<200) 09/16/18 10:00 LDL Cholesterol Direct 96 mg/dL (75-193) 09/16/18 10:00 HDL Cholesterol 37 mg/dL (23-92) 09/16/18 10:00 Valproic Acid 92.2 ug/mL (50.0-100.0) 09/23/18 04:54 [place] 0.84 mmol/L (0.5-1.0) 09/23/18 04:54 - Physical Exam Vitals and I&O: Vital Signs Temp 97.9 F 09/25/18 11:35 Pulse 67 09/25/18 11:35 Resp 18 09/25/18 11:35 BP 118/68 09/25/18 11:35 Pulse Ox 96 09/25/18 11:35 Intake & Output 09/24/18 09/25/18 09/25/18 18:59 06:59 18:59 Intake Total 1000 300 Balance 1000 300 Weight (lbs) 92.986 kg 95.708 kg Intake: Oral 1000 300 Other: # Voids 4 2 # Bowel Movements 1 0 Weight Source Bedscale Bedscale Active Medications: Current Medications Bisacodyl (Dulcolax 10 Mg Supp) 10 mg RC DAILY PRN PRN Reason: Constipation Stop: 11/16/18 07:46 Cyclobenzaprine HCl (Flexeril) 10 mg PO TID [facility] Stop: 11/16/18 08:59 Last Admin: 09/25/18 14:19 Dose: 10 mg Dexamethasone Sodium Phosphate (Decadron) 4 mg IVP Q12HR [facility] Stop: 11/21/18 08:59 Last Admin: 09/25/18 08:36 Dose: 4 mg Divalproex Sodium (Depakote Er) 1,500 mg PO HS [facility]; Protocol Stop: 11/15/18 21:49 Last Admin: 09/24/18 20:25 Dose: 1,500 mg Docusate Sodium (Colace) 200 mg PO BID [facility] Stop: 11/19/18 16:59 Last Admin: 09/25/18 08:36 Dose: 200 mg Levetiracetam (Keppra) 500 mg PO BID [facility] Stop: 11/17/18 08:59 Last Admin: 09/25/18 08:36 Dose: 500 mg [place] Carbonate (Eskalith) 800 mg PO HS [facility]; Protocol Stop: 11/18/18 20:59 Last Admin: 09/24/18 20:25 Dose: 800 mg Magnesium Hydroxide (Milk Of Magnesia) 30 ml PO HS PRN PRN Reason: Constipation Stop: 11/19/18 15:18 Last Admin: 09/21/18 08:28 Dose: 30 ml Morphine Sulfate (Morphine) 2 mg IVP Q4HR PRN PRN Reason: Pain (Severe) Stop: 11/15/18 18:04 Last Admin: 09/25/18 11:44 Dose: 2 mg Morphine Sulfate (Morphine) 1 mg IVP Q4HR PRN PRN Reason: Pain (Moderate) Stop: 11/15/18 18:03 Last Admin: 09/20/18 17:05 Dose: 1 mg Ondansetron HCl (Zofran) 4 mg IV Q6H PRN PRN Reason: Nausea / Vomiting Stop: 11/15/18 18:05 Quetiapine Fumarate (Seroquel Xr) 800 mg PO HS [facility]; Protocol Stop: 11/18/18 20:59 Last Admin: 09/24/18 20:26 Dose: 800 mg Temazepam (Restoril) 15 mg PO HS PRN; Protocol PRN Reason: Insomnia Stop: 11/16/18 11:11 Last Admin: 09/25/18 00:57 Dose: 15 mg General: Alert HEENT: Atraumatic Neck: Supple Cardiovascular: Normal S1 Lungs: Clear to auscultation Abdomen: Bowel sounds, Soft Extremities: Pulses (normal) Neurological: Other (left hemiplegia) Assessment/Plan - Assessment Assessment: 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 Hypertension Diabetes mellitus type 2 Hyperlipidemia Seizure disorder - Plan Plan: Continue physical therapy awaking brain biopsy report Nutritional Asmnt/Malnutr-PDOC - Dietary Evaluation Malnutrition Findings (Please click <Entered> for more info): Nutritional Asmnt/Malnutrition Start: 09/19/18 11: 38 Text: Status: Complete Freq: Protocol: Document 09/19/18 11:39 MMULHERN (Rec: 09/19/18 11:47 MMULHERN SHANNON- FNS1) Nutritional Asmnt/Malnutrition Patient General Information Nutritional Screening Moderate Risk Diagnosis Syncope R/O TIA, cardiac arrythmias Pertinent Medical Hx/Surgical Hx HTN, diabetes, dyslipidemia, seizure, psych disorder Subjective Information Patient states his appetite is good and he has gained 10lb over the past few months because his appetite is so good. States he can tolerate all diet texture, no problems chewing or swallowing. Current Diet Order/ Nutrition Support Low cholesterol Patient / S.O Not Indicated Pertinent Medications Dulcolax, Zofran Pertinent Labs (09/16) Albumin 3.8, TAG 156 Nutritional Hx/Data Height 1.75 m Height (Calculated Centimeters) 175.3 Current Weight (lbs) 84.368 kg Weight (Calculated Kilograms) 84.4 Weight (Calculated Grams) 06167.2 [place] Body Weight 160 % [place] Body Weight 116 Body Mass Index (BMI) 27.4 Recent Weight Change No Weight Status Overweight GI Symptoms GI Symptoms None Last BM none noted since admission Difficult in: None Food Allergies No Cultural/Ethnic/Taoism Belief none indicated Usual diet at home unknown Skin Integrity/Comment: [place] 16, Intact, dilan/ incision on right upper head Current %PO Good (75-100%) Estimated Nutritional Goals BEE in Kcals: Using Current wt Calories/Kcals/Kg 22-27 kcal/kg using CBW 84.5 kg Kcals Calculated 2147-4075 kcal/day Protein: Using Current wt Protein g/k.8-1 gm/kg Protein Calculated 70-85 gm/day Fluid: ml ~2208-2083 ml/day Nutritional Problem 1. Problem Problem No nutrition diagnosis at this time Intervention/Recommendation Comments 1. Continue low cholesterol diet as tolerated by patient. Expected Outcomes/Goals Expected Outcomes/Goals Oral intake >75% of meals, weight stable, nutrition related labs WNL
--- NOTE | 2018-09-25 16:39 | General Progress Note ---
Subjective - Review of Systems Service Date: 09/25/18 Subjective: NO SZ . headache unchanged. left arm weakness, left leg weak. Objective - Results Result Diagrams: 09/25/18 04:30 09/25/18 04:30 Recent Labs: Laboratory Last Values WBC 8.5 Th/cmm (4.8-10.8) 09/25/18 04:30 RBC 4.44 Mil/cmm (4.30-5.70) 09/25/18 04:30 Hgb 13.5 gm/dL (12-16) 09/25/18 04:30 Hct 39.3 % (41.0-60) L 09/25/18 04:30 MCV 88.5 fl (80-99) 09/25/18 04:30 MCH 30.4 pg (26.0-30.0) H 09/25/18 04:30 MCHC Differential 34.3 pg (28.0-36.0) 09/25/18 04:30 RDW 12.3 % (11.5-20.0) 09/25/18 04:30 Plt Count 222 Th/cmm (150-400) 09/25/18 04:30 MPV 8.5 fl 09/25/18 04:30 Add Manual Diff YES 09/23/18 04:54 Neutrophils % 77.4 % (40.0-80.0) 09/25/18 04:30 Band Neutrophils % 6 % (0-10) 09/23/18 04:54 Lymphocytes % 16.9 % (20.0-50.0) L 09/25/18 04:30 Monocytes % 4.5 % (2.0-10.0) 09/25/18 04:30 Eosinophils % 1.1 % (0.0-5.0) 09/25/18 04:30 Basophils % 0.1 % (0.0-2.0) 09/25/18 04:30 Neutrophils (Manual) 82 % (40-80) H 09/23/18 04:54 Lymphocytes 8 % (20-50) L 09/23/18 04:54 Monocytes 4 % (2-10) 09/23/18 04:54 Platelet Estimate ADEQUATE (NORMAL) 09/23/18 04:54 PT 9.9 SECONDS (9.5-11.5) 09/16/18 10:00 INR 0.95 (0.5-1.4) 09/16/18 10:00 Sodium 140 mEq/L (136-145) 09/25/18 04:30 Potassium 3.7 mEq/L (3.5-5.1) 09/25/18 04:30 Chloride 106 mEq/L (98-107) 09/25/18 04:30 Carbon Dioxide 24.5 mEq/L (21.0-31.0) 09/25/18 04:30 Anion Gap 13.2 (7.0-16.0) 09/25/18 04:30 BUN 19 mg/dL (7-25) 09/25/18 04:30 Creatinine 0.6 mg/dL (0.7-1.3) L 09/25/18 04:30 Est GFR ( Amer) > 60.0 ml/min (>90) 09/25/18 04:30 Est GFR (Non-Af Amer) > 60.0 ml/min 09/25/18 04:30 BUN/Creatinine Ratio 31.7 09/25/18 04:30 Glucose 151 mg/dL (70-105) H 09/25/18 04:30 Calcium 9.0 mg/dL (8.6-10.3) 09/25/18 04:30 Total Bilirubin 0.4 mg/dL (0.3-1.0) 09/22/18 04:40 AST 9 U/L (13-39) L 09/22/18 04:40 ALT 12 U/L (7-52) 09/22/18 04:40 Alkaline Phosphatase 60 U/L (34-104) 09/22/18 04:40 Creatine Kinase 18 U/L (30-223) L 09/16/18 10:00 Troponin I 0.01 ng/mL (0.01-0.05) 09/16/18 10:00 B-Natriuretic Peptide 5.2 pg/mL (5.0-100.0) 09/16/18 10:00 Total Protein 6.4 gm/dL (6.0-8.3) 09/22/18 04:40 Albumin 3.6 gm/dL (4.2-5.5) L 09/22/18 04:40 Globulin 2.8 gm/dL 09/22/18 04:40 Albumin/Globulin Ratio 1.3 (1.0-1.8) 09/22/18 04:40 Triglycerides 156 mg/dL (<150) H 09/16/18 10:00 Cholesterol 152 mg/dL (<200) 09/16/18 10:00 LDL Cholesterol Direct 96 mg/dL (75-193) 09/16/18 10:00 HDL Cholesterol 37 mg/dL (23-92) 09/16/18 10:00 Valproic Acid 92.2 ug/mL (50.0-100.0) 09/23/18 04:54 [place] 0.84 mmol/L (0.5-1.0) 09/23/18 04:54 - Physical Exam Vitals and I&O: Vital Signs Temp 97.8 F 09/25/18 15:57 Pulse 69 09/25/18 15:57 Resp 18 09/25/18 15:57 BP 120/71 09/25/18 15:57 Pulse Ox 97 09/25/18 15:57 Intake & Output 09/24/18 09/25/18 09/25/18 18:59 06:59 18:59 Intake Total 1000 300 Balance 1000 300 Weight (lbs) 92.986 kg 95.708 kg Intake: Oral 1000 300 Other: # Voids 4 2 # Bowel Movements 1 0 Weight Source Bedscale Bedscale Active Medications: Current Medications Bisacodyl (Dulcolax 10 Mg Supp) 10 mg RC DAILY PRN PRN Reason: Constipation Stop: 11/16/18 07:46 Cyclobenzaprine HCl (Flexeril) 10 mg PO TID [facility] Stop: 11/16/18 08:59 Last Admin: 09/25/18 14:19 Dose: 10 mg Dexamethasone Sodium Phosphate (Decadron) 4 mg IVP Q12HR [facility] Stop: 11/21/18 08:59 Last Admin: 09/25/18 08:36 Dose: 4 mg Divalproex Sodium (Depakote Er) 1,500 mg PO HS [facility]; Protocol Stop: 11/15/18 21:49 Last Admin: 09/24/18 20:25 Dose: 1,500 mg Docusate Sodium (Colace) 200 mg PO BID [facility] Stop: 11/19/18 16:59 Last Admin: 09/25/18 16:20 Dose: 200 mg Levetiracetam (Keppra) 500 mg PO BID [facility] Stop: 11/17/18 08:59 Last Admin: 09/25/18 16:20 Dose: 500 mg [place] Carbonate (Eskalith) 800 mg PO HS [facility]; Protocol Stop: 11/18/18 20:59 Last Admin: 09/24/18 20:25 Dose: 800 mg Magnesium Hydroxide (Milk Of Magnesia) 30 ml PO HS PRN PRN Reason: Constipation Stop: 11/19/18 15:18 Last Admin: 09/21/18 08:28 Dose: 30 ml Morphine Sulfate (Morphine) 2 mg IVP Q4HR PRN PRN Reason: Pain (Severe) Stop: 11/15/18 18:04 Last Admin: 09/25/18 16:20 Dose: 2 mg Morphine Sulfate (Morphine) 1 mg IVP Q4HR PRN PRN Reason: Pain (Moderate) Stop: 11/15/18 18:03 Last Admin: 09/20/18 17:05 Dose: 1 mg Ondansetron HCl (Zofran) 4 mg IV Q6H PRN PRN Reason: Nausea / Vomiting Stop: 11/15/18 18:05 Quetiapine Fumarate (Seroquel Xr) 800 mg PO HS [facility]; Protocol Stop: 11/18/18 20:59 Last Admin: 09/24/18 20:26 Dose: 800 mg Temazepam (Restoril) 15 mg PO HS PRN; Protocol PRN Reason: Insomnia Stop: 11/16/18 11:11 Last Admin: 09/25/18 00:57 Dose: 15 mg General: Alert HEENT: Atraumatic Neck: Supple Cardiovascular: Normal S1 Lungs: Clear to auscultation Abdomen: Bowel sounds, Soft Extremities: Pulses (normal) Neurological: Other (left hemiplegia) Assessment/Plan - Assessment Assessment: * Brain tumor with no evidence of mets on CT chest/abd/pelvis. * awaiting path report from [place] on brain tumor biopsy Follow neuro recs and continue decadron tapering dose, awaiting path.. marlon Galindo. Nutritional Asmnt/Malnutr-PDOC - Dietary Evaluation Malnutrition Findings (Please click <Entered> for more info): Nutritional Asmnt/Malnutrition Start: 09/19/18 11: 38 Text: Status: Complete Freq: Protocol: Document 09/19/18 11:39 MMULHERN (Rec: 09/19/18 11:47 HALEY SHANNON- FNS1) Nutritional Asmnt/Malnutrition Patient General Information Nutritional Screening Moderate Risk Diagnosis Syncope R/O TIA, cardiac arrythmias Pertinent Medical Hx/Surgical Hx HTN, diabetes, dyslipidemia, seizure, psych disorder Subjective Information Patient states his appetite is good and he has gained 10lb over the past few months because his appetite is so good. States he can tolerate all diet texture, no problems chewing or swallowing. Current Diet Order/ Nutrition Support Low cholesterol Patient / S.O Not Indicated Pertinent Medications Dulcolax, Zofran Pertinent Labs (09/16) Albumin 3.8, TAG 156 Nutritional Hx/Data Height 1.75 m Height (Calculated Centimeters) 175.3 Current Weight (lbs) 84.368 kg Weight (Calculated Kilograms) 84.4 Weight (Calculated Grams) 96112.2 [place] Body Weight 160 % Salome Body Weight 116 Body Mass Index (BMI) 27.4 Recent Weight Change No Weight Status Overweight GI Symptoms GI Symptoms None Last BM none noted since admission Difficult in: None Food Allergies No Cultural/Ethnic/Alevism Belief none indicated Usual diet at home unknown Skin Integrity/Comment: Connor 16, Intact, dilan/ incision on right upper head Current %PO Good (75-100%) Estimated Nutritional Goals BEE in Kcals: Using Current wt Calories/Kcals/Kg 22-27 kcal/kg using CBW 84.5 kg Kcals Calculated 6433-4174 kcal/day Protein: Using Current wt Protein g/k.8-1 gm/kg Protein Calculated 70-85 gm/day Fluid: ml ~7345-3497 ml/day Nutritional Problem 1. Problem Problem No nutrition diagnosis at this time Intervention/Recommendation Comments 1. Continue low cholesterol diet as tolerated by patient. Expected Outcomes/Goals Expected Outcomes/Goals Oral intake >75% of meals, weight stable, nutrition related labs WNL
--- NOTE | 2018-09-25 18:06 | Internal Medicine Prog Note ---
Internal Medicine Subjective - Subjective Service Date: 09/25/18 Patient is:: awake, verbal, in bed, other (left-sided weakness of arm, left facial weakness) Per staff patient has:: no adverse event Internal Medicine Objective - Results Result Diagrams: 09/25/18 04:30 09/25/18 04:30 Recent Labs: Laboratory Last Values WBC 8.5 Th/cmm (4.8-10.8) 09/25/18 04:30 RBC 4.44 Mil/cmm (4.30-5.70) 09/25/18 04:30 Hgb 13.5 gm/dL (12-16) 09/25/18 04:30 Hct 39.3 % (41.0-60) L 09/25/18 04:30 MCV 88.5 fl (80-99) 09/25/18 04:30 MCH 30.4 pg (26.0-30.0) H 09/25/18 04:30 MCHC Differential 34.3 pg (28.0-36.0) 09/25/18 04:30 RDW 12.3 % (11.5-20.0) 09/25/18 04:30 Plt Count 222 Th/cmm (150-400) 09/25/18 04:30 MPV 8.5 fl 09/25/18 04:30 Add Manual Diff YES 09/23/18 04:54 Neutrophils % 77.4 % (40.0-80.0) 09/25/18 04:30 Band Neutrophils % 6 % (0-10) 09/23/18 04:54 Lymphocytes % 16.9 % (20.0-50.0) L 09/25/18 04:30 Monocytes % 4.5 % (2.0-10.0) 09/25/18 04:30 Eosinophils % 1.1 % (0.0-5.0) 09/25/18 04:30 Basophils % 0.1 % (0.0-2.0) 09/25/18 04:30 Neutrophils (Manual) 82 % (40-80) H 09/23/18 04:54 Lymphocytes 8 % (20-50) L 09/23/18 04:54 Monocytes 4 % (2-10) 09/23/18 04:54 Platelet Estimate ADEQUATE (NORMAL) 09/23/18 04:54 PT 9.9 SECONDS (9.5-11.5) 09/16/18 10:00 INR 0.95 (0.5-1.4) 09/16/18 10:00 Sodium 140 mEq/L (136-145) 09/25/18 04:30 Potassium 3.7 mEq/L (3.5-5.1) 09/25/18 04:30 Chloride 106 mEq/L (98-107) 09/25/18 04:30 Carbon Dioxide 24.5 mEq/L (21.0-31.0) 09/25/18 04:30 Anion Gap 13.2 (7.0-16.0) 09/25/18 04:30 BUN 19 mg/dL (7-25) 09/25/18 04:30 Creatinine 0.6 mg/dL (0.7-1.3) L 09/25/18 04:30 Est GFR ( Amer) > 60.0 ml/min (>90) 09/25/18 04:30 Est GFR (Non-Af Amer) > 60.0 ml/min 09/25/18 04:30 BUN/Creatinine Ratio 31.7 09/25/18 04:30 Glucose 151 mg/dL (70-105) H 09/25/18 04:30 Calcium 9.0 mg/dL (8.6-10.3) 09/25/18 04:30 Total Bilirubin 0.4 mg/dL (0.3-1.0) 09/22/18 04:40 AST 9 U/L (13-39) L 09/22/18 04:40 ALT 12 U/L (7-52) 09/22/18 04:40 Alkaline Phosphatase 60 U/L (34-104) 09/22/18 04:40 Creatine Kinase 18 U/L (30-223) L 09/16/18 10:00 Troponin I 0.01 ng/mL (0.01-0.05) 09/16/18 10:00 B-Natriuretic Peptide 5.2 pg/mL (5.0-100.0) 09/16/18 10:00 Total Protein 6.4 gm/dL (6.0-8.3) 09/22/18 04:40 Albumin 3.6 gm/dL (4.2-5.5) L 09/22/18 04:40 Globulin 2.8 gm/dL 09/22/18 04:40 Albumin/Globulin Ratio 1.3 (1.0-1.8) 09/22/18 04:40 Triglycerides 156 mg/dL (<150) H 09/16/18 10:00 Cholesterol 152 mg/dL (<200) 09/16/18 10:00 LDL Cholesterol Direct 96 mg/dL (75-193) 09/16/18 10:00 HDL Cholesterol 37 mg/dL (23-92) 09/16/18 10:00 Valproic Acid 92.2 ug/mL (50.0-100.0) 09/23/18 04:54 [place] 0.84 mmol/L (0.5-1.0) 09/23/18 04:54 - Physical Exam Vitals and I&O: Vital Signs Temp 97.8 F 09/25/18 15:57 Pulse 69 09/25/18 15:57 Resp 18 09/25/18 15:57 BP 120/71 09/25/18 15:57 Pulse Ox 97 09/25/18 15:57 Intake & Output 09/24/18 09/25/18 09/25/18 18:59 06:59 18:59 Intake Total 4275 313 7482 Balance 3743 405 3371 Weight (lbs) 205 lb 211 lb 210 lb 12.8 oz Intake: Oral 9191 428 8053 Other: # Voids 4 2 2 # Bowel Movements 1 0 Weight Source Bedscale Bedscale Bedscale Active Medications: Current Medications Bisacodyl (Dulcolax 10 Mg Supp) 10 mg RC DAILY PRN PRN Reason: Constipation Stop: 11/16/18 07:46 Cyclobenzaprine HCl (Flexeril) 10 mg PO TID [facility] Stop: 11/16/18 08:59 Last Admin: 09/25/18 14:19 Dose: 10 mg Dexamethasone Sodium Phosphate (Decadron) 4 mg IVP Q12HR [facility] Stop: 11/21/18 08:59 Last Admin: 09/25/18 08:36 Dose: 4 mg Divalproex Sodium (Depakote Er) 1,500 mg PO HS [facility]; Protocol Stop: 11/15/18 21:49 Last Admin: 09/24/18 20:25 Dose: 1,500 mg Docusate Sodium (Colace) 200 mg PO BID [facility] Stop: 11/19/18 16:59 Last Admin: 09/25/18 16:20 Dose: 200 mg Levetiracetam (Keppra) 500 mg PO BID [facility] Stop: 11/17/18 08:59 Last Admin: 09/25/18 16:20 Dose: 500 mg [place] Carbonate (Eskalith) 800 mg PO HS [facility]; Protocol Stop: 11/18/18 20:59 Last Admin: 09/24/18 20:25 Dose: 800 mg Magnesium Hydroxide (Milk Of Magnesia) 30 ml PO HS PRN PRN Reason: Constipation Stop: 11/19/18 15:18 Last Admin: 09/21/18 08:28 Dose: 30 ml Morphine Sulfate (Morphine) 2 mg IVP Q4HR PRN PRN Reason: Pain (Severe) Stop: 11/15/18 18:04 Last Admin: 09/25/18 16:20 Dose: 2 mg Morphine Sulfate (Morphine) 1 mg IVP Q4HR PRN PRN Reason: Pain (Moderate) Stop: 11/15/18 18:03 Last Admin: 09/20/18 17:05 Dose: 1 mg Ondansetron HCl (Zofran) 4 mg IV Q6H PRN PRN Reason: Nausea / Vomiting Stop: 11/15/18 18:05 Quetiapine Fumarate (Seroquel Xr) 800 mg PO HS [facility]; Protocol Stop: 11/18/18 20:59 Last Admin: 09/24/18 20:26 Dose: 800 mg Temazepam (Restoril) 15 mg PO HS PRN; Protocol PRN Reason: Insomnia Stop: 11/16/18 11:11 Last Admin: 09/25/18 00:57 Dose: 15 mg General: alert HEENT: NC/AT Neck: Supple Lungs: CTAB Cardiovascular: RRR, Normal S1, Normal S2 Abdomen: soft, non-tender Extremities: clear Neurological: no change, other (left-sided weakness) Internal Medicine Assmt/Plan - Assessment Assessment: brain tumor with mass effect syncopal episode h/o htn h/o hyperlipidemia h/o seizures h/o dementia h/o peptic ulcer disease - Plan Plan: fall precautions appreciate neuro recc follow up labs in am Nutritional Asmnt/Malnutr-PDOC - Dietary Evaluation Malnutrition Findings (Please click <Entered> for more info): Nutritional Asmnt/Malnutrition Start: 09/19/18 11: 38 Text: Status: Complete Freq: Protocol: Document 09/19/18 11:39 DELFINONAYABELLA (Rec: 09/19/18 11:47 ARANZABELLA ALYN- FNS1) Nutritional Asmnt/Malnutrition Patient General Information Nutritional Screening Moderate Risk Diagnosis Syncope R/O TIA, cardiac arrythmias Pertinent Medical Hx/Surgical Hx HTN, diabetes, dyslipidemia, seizure, psych disorder Subjective Information Patient states his appetite is good and he has gained 10lb over the past few months because his appetite is so good. States he can tolerate all diet texture, no problems chewing or swallowing. Current Diet Order/ Nutrition Support Low cholesterol Patient / S.O Not Indicated Pertinent Medications Dulcolax, Zofran Pertinent Labs (09/16) Albumin 3.8, TAG 156 Nutritional Hx/Data Height 5 ft 9 in Height (Calculated Centimeters) 175.3 Current Weight (lbs) 186 lb Weight (Calculated Kilograms) 84.4 Weight (Calculated Grams) 46011.2 [place] Body Weight 160 % [place] Body Weight 116 Body Mass Index (BMI) 27.4 Recent Weight Change No Weight Status Overweight GI Symptoms GI Symptoms None Last BM none noted since admission Difficult in: None Food Allergies No Cultural/Ethnic/Bahai Belief none indicated Usual diet at home unknown Skin Integrity/Comment: [place] 16, Intact, dilan/ incision on right upper head Current %PO Good (75-100%) Estimated Nutritional Goals BEE in Kcals: Using Current wt Calories/Kcals/Kg 22-27 kcal/kg using CBW 84.5 kg Kcals Calculated 6442-0313 kcal/day Protein: Using Current wt Protein g/k.8-1 gm/kg Protein Calculated 70-85 gm/day Fluid: ml ~2967-5170 ml/day Nutritional Problem 1. Problem Problem No nutrition diagnosis at this time Intervention/Recommendation Comments 1. Continue low cholesterol diet as tolerated by patient. Expected Outcomes/Goals Expected Outcomes/Goals Oral intake >75% of meals, weight stable, nutrition related labs WNL
[2018-09-26] MEDS: Morphine Sulfate 2 mg/mL 1mL Syr IVP PRN ×4 (04:39→21:03)
[2018-09-26 05:40] LABS: % BASOPHILS 0.7 % (0.0-2.0); % EOSINOPHILS 0.6 % (0.0-5.0); % MONOCYTES 4.2 % (2.0-10.0); % NEUTROPHILS 78.5 % (40.0-80.0); BASOPHILE ABSOLUTE 0.1 Th/cumm (0-0.2); HEMATOCRIT 43.1 % (41.0-60); HEMOGLOBIN 14.5 gm/dL (12-16); LYMPHOCYTE ABSOLUTE 1.3 Th/cmm (1.5-3.0); MEAN CELL VOLUME 88.9 fl (80-99); MEAN CORPUSCULAR HGB CONC 33.7 pg (28.0-36.0); MEAN PLATELET VOLUME 7.6 fl; MONOCYTE ABSOLUTE 0.3 Th/cmm (0.3-1.0); NEUTROPHILE ABSOLUTE 6.6 Th/cmm (1.8-8.0); PLATELET COUNT 247 Th/cmm (150-400); RED BLOOD COUNT 4.84 Mil/cmm (4.30-5.70); RED CELL DISTRIBUTION WIDTH 12.3 % (11.5-20.0); WHITE BLOOD COUNT 8.3 Th/cmm (4.8-10.8)
[2018-09-26 06:04] LABS: ANION GAP 13.5 (7.0-16.0); BUN - UREA NITROGEN 17 mg/dL (7-25); CALCIUM SERUM 9.8 mg/dL (8.6-10.3); CARBON DIOXIDE 26.7 mEq/L (21.0-31.0); CHLORIDE 103 mEq/L (98-107); CREATININE - SERUM 0.6 mg/dL (0.7-1.3); GFR AFRICAN-AMERICAN > 60.0 ml/min (>90); GFR NON AFRICAN-AMERICAN > 60.0 ml/min; GLUCOSE 123 mg/dL (70-105); POTASSIUM SERUM 4.2 mEq/L (3.5-5.1); SODIUM SERUM 139 mEq/L (136-145)
[2018-09-26] MEDS ORDERED: Polyvinyl Alcohol Ophth Soln 15 mL Bottle RIGHT EYE PRN (08:49)
[2018-09-26] MEDS: Dexamethasone Sodium Phos 4 mg/mL Vial IVP SCH ×2 (09:26→21:03)
--- NOTE | 2018-09-26 13:01 | General Progress Note ---
Subjective - Review of Systems Service Date: 09/26/18 Subjective: NO SZ . headache unchanged. left arm weakness, left leg weak. Objective - Results Result Diagrams: 09/26/18 05:27 09/26/18 05:27 Recent Labs: Laboratory Last Values WBC 8.3 Th/cmm (4.8-10.8) 09/26/18 05:27 RBC 4.84 Mil/cmm (4.30-5.70) 09/26/18 05:27 Hgb 14.5 gm/dL (12-16) 09/26/18 05:27 Hct 43.1 % (41.0-60) 09/26/18 05:27 MCV 88.9 fl (80-99) 09/26/18 05:27 MCH 30.0 pg (26.0-30.0) 09/26/18 05:27 MCHC Differential 33.7 pg (28.0-36.0) 09/26/18 05:27 RDW 12.3 % (11.5-20.0) 09/26/18 05:27 Plt Count 247 Th/cmm (150-400) 09/26/18 05:27 MPV 7.6 fl 09/26/18 05:27 Add Manual Diff YES 09/23/18 04:54 Neutrophils % 78.5 % (40.0-80.0) 09/26/18 05:27 Band Neutrophils % 6 % (0-10) 09/23/18 04:54 Lymphocytes % 16.0 % (20.0-50.0) L 09/26/18 05:27 Monocytes % 4.2 % (2.0-10.0) 09/26/18 05:27 Eosinophils % 0.6 % (0.0-5.0) 09/26/18 05:27 Basophils % 0.7 % (0.0-2.0) 09/26/18 05:27 Neutrophils (Manual) 82 % (40-80) H 09/23/18 04:54 Lymphocytes 8 % (20-50) L 09/23/18 04:54 Monocytes 4 % (2-10) 09/23/18 04:54 Platelet Estimate ADEQUATE (NORMAL) 09/23/18 04:54 PT 9.9 SECONDS (9.5-11.5) 09/16/18 10:00 INR 0.95 (0.5-1.4) 09/16/18 10:00 Sodium 139 mEq/L (136-145) 09/26/18 05:27 Potassium 4.2 mEq/L (3.5-5.1) 09/26/18 05:27 Chloride 103 mEq/L (98-107) 09/26/18 05:27 Carbon Dioxide 26.7 mEq/L (21.0-31.0) 09/26/18 05:27 Anion Gap 13.5 (7.0-16.0) 09/26/18 05:27 BUN 17 mg/dL (7-25) 09/26/18 05:27 Creatinine 0.6 mg/dL (0.7-1.3) L 09/26/18 05:27 Est GFR ( Amer) > 60.0 ml/min (>90) 09/26/18 05:27 Est GFR (Non-Af Amer) > 60.0 ml/min 09/26/18 05:27 BUN/Creatinine Ratio 28.3 09/26/18 05:27 Glucose 123 mg/dL (70-105) H 09/26/18 05:27 Calcium 9.8 mg/dL (8.6-10.3) 09/26/18 05:27 Total Bilirubin 0.4 mg/dL (0.3-1.0) 09/22/18 04:40 AST 9 U/L (13-39) L 09/22/18 04:40 ALT 12 U/L (7-52) 09/22/18 04:40 Alkaline Phosphatase 60 U/L (34-104) 09/22/18 04:40 Creatine Kinase 18 U/L (30-223) L 09/16/18 10:00 Troponin I 0.01 ng/mL (0.01-0.05) 09/16/18 10:00 B-Natriuretic Peptide 5.2 pg/mL (5.0-100.0) 09/16/18 10:00 Total Protein 6.4 gm/dL (6.0-8.3) 09/22/18 04:40 Albumin 3.6 gm/dL (4.2-5.5) L 09/22/18 04:40 Globulin 2.8 gm/dL 09/22/18 04:40 Albumin/Globulin Ratio 1.3 (1.0-1.8) 09/22/18 04:40 Triglycerides 156 mg/dL (<150) H 09/16/18 10:00 Cholesterol 152 mg/dL (<200) 09/16/18 10:00 LDL Cholesterol Direct 96 mg/dL (75-193) 09/16/18 10:00 HDL Cholesterol 37 mg/dL (23-92) 09/16/18 10:00 Valproic Acid 92.2 ug/mL (50.0-100.0) 09/23/18 04:54 [place] 0.84 mmol/L (0.5-1.0) 09/23/18 04:54 - Physical Exam Vitals and I&O: Vital Signs Temp 96.3 F 09/26/18 08:00 Pulse 65 09/26/18 08:00 Resp 18 09/26/18 08:00 BP 146/88 09/26/18 08:00 Pulse Ox 98 09/26/18 08:00 Intake & Output 09/25/18 09/26/18 09/26/18 18:59 06:59 18:59 Intake Total 1000 Output Total 600 Balance 1000 -600 Weight (lbs) 95.617 kg 95.617 kg Intake: Oral 1000 Output: Urine 600 Other: # Voids 2 2 # Bowel Movements 1 Weight Source Bedscale Bedscale Active Medications: Current Medications Artificial Tears (Artificial Tears Ophth Soln) 1 drop RIGHT EYE DAILY PRN PRN Reason: Dry Eye Stop: 11/25/18 08:48 Bisacodyl (Dulcolax 10 Mg Supp) 10 mg RC DAILY PRN PRN Reason: Constipation Stop: 11/16/18 07:46 Cyclobenzaprine HCl (Flexeril) 10 mg PO TID [facility] Stop: 11/16/18 08:59 Last Admin: 09/26/18 09:26 Dose: 10 mg Dexamethasone Sodium Phosphate (Decadron) 4 mg IVP Q12HR [facility] Stop: 11/21/18 08:59 Last Admin: 09/26/18 09:26 Dose: 4 mg Divalproex Sodium (Depakote Er) 1,500 mg PO HS [facility]; Protocol Stop: 11/15/18 21:49 Last Admin: 09/25/18 21:15 Dose: 1,500 mg Docusate Sodium (Colace) 200 mg PO BID [facility] Stop: 11/19/18 16:59 Last Admin: 09/26/18 09:26 Dose: 200 mg Levetiracetam (Keppra) 500 mg PO BID [facility] Stop: 11/17/18 08:59 Last Admin: 09/26/18 09:26 Dose: 500 mg [place] Carbonate (Eskalith) 800 mg PO HS [facility]; Protocol Stop: 11/18/18 20:59 Last Admin: 09/25/18 21:15 Dose: 800 mg Magnesium Hydroxide (Milk Of Magnesia) 30 ml PO HS PRN PRN Reason: Constipation Stop: 11/19/18 15:18 Last Admin: 09/21/18 08:28 Dose: 30 ml Morphine Sulfate (Morphine) 2 mg IVP Q4HR PRN PRN Reason: Pain (Severe) Stop: 11/15/18 18:04 Last Admin: 09/26/18 09:26 Dose: 2 mg Morphine Sulfate (Morphine) 1 mg IVP Q4HR PRN PRN Reason: Pain (Moderate) Stop: 11/15/18 18:03 Last Admin: 09/20/18 17:05 Dose: 1 mg Ondansetron HCl (Zofran) 4 mg IV Q6H PRN PRN Reason: Nausea / Vomiting Stop: 11/15/18 18:05 Quetiapine Fumarate (Seroquel Xr) 800 mg PO HS [facility]; Protocol Stop: 11/18/18 20:59 Last Admin: 09/25/18 21:14 Dose: 800 mg Temazepam (Restoril) 15 mg PO HS PRN; Protocol PRN Reason: Insomnia Stop: 11/16/18 11:11 Last Admin: 09/25/18 00:57 Dose: 15 mg General: Alert HEENT: Atraumatic Neck: Supple Cardiovascular: Normal S1 Lungs: Clear to auscultation Abdomen: Bowel sounds, Soft Extremities: Pulses (normal) Neurological: Other (left hemiplegia) Assessment/Plan - Assessment Assessment: * Brain tumor with no evidence of mets on CT chest/abd/pelvis. * awaiting path report from [place] on brain tumor biopsy Follow neuro recs and continue decadron tapering dose, awaiting path.. dw SILVIO Saxena.and admission discharge rn KYZYL Nutritional Asmnt/Malnutr-PDOC - Dietary Evaluation Malnutrition Findings (Please click <Entered> for more info): Nutritional Asmnt/Malnutrition Start: 09/19/18 11: 38 Text: Status: Complete Freq: Protocol: Document 09/19/18 11:39 ARANZABELLA (Rec: 09/19/18 11:47 ARANZABELLA ORTEGA- FNS1) Nutritional Asmnt/Malnutrition Patient General Information Nutritional Screening Moderate Risk Diagnosis Syncope R/O TIA, cardiac arrythmias Pertinent Medical Hx/Surgical Hx HTN, diabetes, dyslipidemia, seizure, psych disorder Subjective Information Patient states his appetite is good and he has gained 10lb over the past few months because his appetite is so good. States he can tolerate all diet texture, no problems chewing or swallowing. Current Diet Order/ Nutrition Support Low cholesterol Patient / S.O Not Indicated Pertinent Medications Dulcolax, Zofran Pertinent Labs (09/16) Albumin 3.8, TAG 156 Nutritional Hx/Data Height 1.75 m Height (Calculated Centimeters) 175.3 Current Weight (lbs) 84.368 kg Weight (Calculated Kilograms) 84.4 Weight (Calculated Grams) 75934.2 [place] Body Weight 160 % [place] Body Weight 116 Body Mass Index (BMI) 27.4 Recent Weight Change No Weight Status Overweight GI Symptoms GI Symptoms None Last BM none noted since admission Difficult in: None Food Allergies No Cultural/Ethnic/Scientologist Belief none indicated Usual diet at home unknown Skin Integrity/Comment: [place] 16, Intact, dilan/ incision on right upper head Current %PO Good (75-100%) Estimated Nutritional Goals BEE in Kcals: Using Current wt Calories/Kcals/Kg 22-27 kcal/kg using CBW 84.5 kg Kcals Calculated 2548-3379 kcal/day Protein: Using Current wt Protein g/k.8-1 gm/kg Protein Calculated 70-85 gm/day Fluid: ml ~3148-2189 ml/day Nutritional Problem 1. Problem Problem No nutrition diagnosis at this time Intervention/Recommendation Comments 1. Continue low cholesterol diet as tolerated by patient. Expected Outcomes/Goals Expected Outcomes/Goals Oral intake >75% of meals, weight stable, nutrition related labs WNL
--- NOTE | 2018-09-26 14:20 | General Progress Note ---
Subjective - Review of Systems Service Date: 09/26/18 Subjective: Patient has no complaint of headache dizziness awaiting biopsy report patient has weakness on the left side Objective - Results Result Diagrams: 09/26/18 05:27 09/26/18 05:27 Recent Labs: Laboratory Last Values WBC 8.3 Th/cmm (4.8-10.8) 09/26/18 05:27 RBC 4.84 Mil/cmm (4.30-5.70) 09/26/18 05:27 Hgb 14.5 gm/dL (12-16) 09/26/18 05:27 Hct 43.1 % (41.0-60) 09/26/18 05:27 MCV 88.9 fl (80-99) 09/26/18 05:27 MCH 30.0 pg (26.0-30.0) 09/26/18 05:27 MCHC Differential 33.7 pg (28.0-36.0) 09/26/18 05:27 RDW 12.3 % (11.5-20.0) 09/26/18 05:27 Plt Count 247 Th/cmm (150-400) 09/26/18 05:27 MPV 7.6 fl 09/26/18 05:27 Add Manual Diff YES 09/23/18 04:54 Neutrophils % 78.5 % (40.0-80.0) 09/26/18 05:27 Band Neutrophils % 6 % (0-10) 09/23/18 04:54 Lymphocytes % 16.0 % (20.0-50.0) L 09/26/18 05:27 Monocytes % 4.2 % (2.0-10.0) 09/26/18 05:27 Eosinophils % 0.6 % (0.0-5.0) 09/26/18 05:27 Basophils % 0.7 % (0.0-2.0) 09/26/18 05:27 Neutrophils (Manual) 82 % (40-80) H 09/23/18 04:54 Lymphocytes 8 % (20-50) L 09/23/18 04:54 Monocytes 4 % (2-10) 09/23/18 04:54 Platelet Estimate ADEQUATE (NORMAL) 09/23/18 04:54 PT 9.9 SECONDS (9.5-11.5) 09/16/18 10:00 INR 0.95 (0.5-1.4) 09/16/18 10:00 Sodium 139 mEq/L (136-145) 09/26/18 05:27 Potassium 4.2 mEq/L (3.5-5.1) 09/26/18 05:27 Chloride 103 mEq/L (98-107) 09/26/18 05:27 Carbon Dioxide 26.7 mEq/L (21.0-31.0) 09/26/18 05:27 Anion Gap 13.5 (7.0-16.0) 09/26/18 05:27 BUN 17 mg/dL (7-25) 09/26/18 05:27 Creatinine 0.6 mg/dL (0.7-1.3) L 09/26/18 05:27 Est GFR ( Amer) > 60.0 ml/min (>90) 09/26/18 05:27 Est GFR (Non-Af Amer) > 60.0 ml/min 09/26/18 05:27 BUN/Creatinine Ratio 28.3 09/26/18 05:27 Glucose 123 mg/dL (70-105) H 09/26/18 05:27 Calcium 9.8 mg/dL (8.6-10.3) 09/26/18 05:27 Total Bilirubin 0.4 mg/dL (0.3-1.0) 09/22/18 04:40 AST 9 U/L (13-39) L 09/22/18 04:40 ALT 12 U/L (7-52) 09/22/18 04:40 Alkaline Phosphatase 60 U/L (34-104) 09/22/18 04:40 Creatine Kinase 18 U/L (30-223) L 09/16/18 10:00 Troponin I 0.01 ng/mL (0.01-0.05) 09/16/18 10:00 B-Natriuretic Peptide 5.2 pg/mL (5.0-100.0) 09/16/18 10:00 Total Protein 6.4 gm/dL (6.0-8.3) 09/22/18 04:40 Albumin 3.6 gm/dL (4.2-5.5) L 09/22/18 04:40 Globulin 2.8 gm/dL 09/22/18 04:40 Albumin/Globulin Ratio 1.3 (1.0-1.8) 09/22/18 04:40 Triglycerides 156 mg/dL (<150) H 09/16/18 10:00 Cholesterol 152 mg/dL (<200) 09/16/18 10:00 LDL Cholesterol Direct 96 mg/dL (75-193) 09/16/18 10:00 HDL Cholesterol 37 mg/dL (23-92) 09/16/18 10:00 Valproic Acid 92.2 ug/mL (50.0-100.0) 09/23/18 04:54 [place] 0.84 mmol/L (0.5-1.0) 09/23/18 04:54 - Physical Exam Vitals and I&O: Vital Signs Temp 96.3 F 09/26/18 08:00 Pulse 65 09/26/18 08:00 Resp 18 09/26/18 08:00 BP 146/88 09/26/18 08:00 Pulse Ox 98 09/26/18 08:00 Intake & Output 09/25/18 09/26/18 09/26/18 18:59 06:59 18:59 Intake Total 1000 Output Total 600 Balance 1000 -600 Weight (lbs) 95.617 kg 95.617 kg Intake: Oral 1000 Output: Urine 600 Other: # Voids 2 2 # Bowel Movements 1 Weight Source Bedscale Bedscale Active Medications: Current Medications Artificial Tears (Artificial Tears Ophth Soln) 1 drop RIGHT EYE DAILY PRN PRN Reason: Dry Eye Stop: 11/25/18 08:48 Bisacodyl (Dulcolax 10 Mg Supp) 10 mg RC DAILY PRN PRN Reason: Constipation Stop: 11/16/18 07:46 Cyclobenzaprine HCl (Flexeril) 10 mg PO TID [facility] Stop: 11/16/18 08:59 Last Admin: 09/26/18 09:26 Dose: 10 mg Dexamethasone Sodium Phosphate (Decadron) 4 mg IVP Q12HR [facility] Stop: 11/21/18 08:59 Last Admin: 09/26/18 09:26 Dose: 4 mg Divalproex Sodium (Depakote Er) 1,500 mg PO HS [facility]; Protocol Stop: 11/15/18 21:49 Last Admin: 09/25/18 21:15 Dose: 1,500 mg Docusate Sodium (Colace) 200 mg PO BID [facility] Stop: 11/19/18 16:59 Last Admin: 09/26/18 09:26 Dose: 200 mg Levetiracetam (Keppra) 500 mg PO BID [facility] Stop: 11/17/18 08:59 Last Admin: 09/26/18 09:26 Dose: 500 mg [place] Carbonate (Eskalith) 800 mg PO HS [facility]; Protocol Stop: 11/18/18 20:59 Last Admin: 09/25/18 21:15 Dose: 800 mg Magnesium Hydroxide (Milk Of Magnesia) 30 ml PO HS PRN PRN Reason: Constipation Stop: 11/19/18 15:18 Last Admin: 09/21/18 08:28 Dose: 30 ml Morphine Sulfate (Morphine) 2 mg IVP Q4HR PRN PRN Reason: Pain (Severe) Stop: 11/15/18 18:04 Last Admin: 09/26/18 09:26 Dose: 2 mg Morphine Sulfate (Morphine) 1 mg IVP Q4HR PRN PRN Reason: Pain (Moderate) Stop: 11/15/18 18:03 Last Admin: 09/20/18 17:05 Dose: 1 mg Ondansetron HCl (Zofran) 4 mg IV Q6H PRN PRN Reason: Nausea / Vomiting Stop: 11/15/18 18:05 Quetiapine Fumarate (Seroquel Xr) 800 mg PO HS [facility]; Protocol Stop: 11/18/18 20:59 Last Admin: 09/25/18 21:14 Dose: 800 mg Temazepam (Restoril) 15 mg PO HS PRN; Protocol PRN Reason: Insomnia Stop: 11/16/18 11:11 Last Admin: 09/25/18 00:57 Dose: 15 mg General: Alert HEENT: Atraumatic Neck: Supple Cardiovascular: Normal S1 Lungs: Clear to auscultation Abdomen: Bowel sounds, Soft Extremities: Pulses (normal) Neurological: Other (left hemiplegia) Assessment/Plan - Assessment Assessment: 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 Hypertension Diabetes mellitus type 2 Hyperlipidemia Seizure disorder - Plan Plan: Continue physical therapy awaking brain biopsy report Nutritional Asmnt/Malnutr-PDOC - Dietary Evaluation Malnutrition Findings (Please click <Entered> for more info): Nutritional Asmnt/Malnutrition Start: 09/19/18 11: 38 Text: Status: Complete Freq: Protocol: Document 09/19/18 11:39 HALEY (Rec: 09/19/18 11:47 ARANZABELLA ORTEGA- FNS1) Nutritional Asmnt/Malnutrition Patient General Information Nutritional Screening Moderate Risk Diagnosis Syncope R/O TIA, cardiac arrythmias Pertinent Medical Hx/Surgical Hx HTN, diabetes, dyslipidemia, seizure, psych disorder Subjective Information Patient states his appetite is good and he has gained 10lb over the past few months because his appetite is so good. States he can tolerate all diet texture, no problems chewing or swallowing. Current Diet Order/ Nutrition Support Low cholesterol Patient / S.O Not Indicated Pertinent Medications Dulcolax, Zofran Pertinent Labs (09/16) Albumin 3.8, TAG 156 Nutritional Hx/Data Height 1.75 m Height (Calculated Centimeters) 175.3 Current Weight (lbs) 84.368 kg Weight (Calculated Kilograms) 84.4 Weight (Calculated Grams) 62113.2 [place] Body Weight 160 % [place] Body Weight 116 Body Mass Index (BMI) 27.4 Recent Weight Change No Weight Status Overweight GI Symptoms GI Symptoms None Last BM none noted since admission Difficult in: None Food Allergies No Cultural/Ethnic/Congregational Belief none indicated Usual diet at home unknown Skin Integrity/Comment: Connor 16, Intact, dilan/ incision on right upper head Current %PO Good (75-100%) Estimated Nutritional Goals BEE in Kcals: Using Current wt Calories/Kcals/Kg 22-27 kcal/kg using CBW 84.5 kg Kcals Calculated 6478-3807 kcal/day Protein: Using Current wt Protein g/k.8-1 gm/kg Protein Calculated 70-85 gm/day Fluid: ml ~4055-9182 ml/day Nutritional Problem 1. Problem Problem No nutrition diagnosis at this time Intervention/Recommendation Comments 1. Continue low cholesterol diet as tolerated by patient. Expected Outcomes/Goals Expected Outcomes/Goals Oral intake >75% of meals, weight stable, nutrition related labs WNL
[2018-09-26] MEDS: Lithium Citrate 300 mg/5 mL Soln UDC PO SCH (21:04)
--- NOTE | 2018-09-26 22:34 | Progress Notes ---
DATE: 09/26/2018 SUBJECTIVE: The patient was seen in his room. The patient is awake and alert with notable left-sided weakness. Complains of episodic headache. Otherwise, the patient appears to be comfortable, in no acute distress. OBJECTIVE: VITAL SIGNS: Temperature 96.3, heart rate 65, respiration of 18, blood pressure 146/88 and 98% on room air. HEENT: Head is atraumatic and normocephalic. Eyes: Bilateral conjunctivae are clear. Bilateral pupils are equally round and reactive. NECK: Supple. No JVD. CARDIOVASCULAR: S1 and S2 without murmur. PULMONARY: Clear to auscultation. GASTROINTESTINAL: Soft and nontender without guarding. Positive bowel sounds. MUSCULOSKELETAL: No clubbing and no cyanosis noted. ASSESSMENT: 1. Brain mass. 2. Seizure disorder. 3. History of seizure disorder. 3. History of gastroesophageal reflux disease. PLAN: We will continue current treatment and follow up with a neurologist for neurological recommendation and put the patient on fall precaution. Treatment plans were discussed with the patient's nurse. Treatment plans were discussed with Dr. Ko. JOB# [id number]
[2018-09-27] MEDS: Morphine Sulfate 2 mg/mL 1mL Syr IVP PRN ×5 (05:53→22:24)
[2018-09-27] MEDS: Dexamethasone Sodium Phos 4 mg/mL Vial IVP SCH ×2 (09:52→20:31)
--- NOTE | 2018-09-27 11:55 | Internal Medicine Prog Note ---
Internal Medicine Subjective - Subjective Patient seen and examined:: chart reviewed Patient is:: awake, verbal, in bed, other (left-sided weakness , denies headaches at thistime ) Per staff patient has:: no adverse event Internal Medicine Objective - Results Result Diagrams: 09/26/18 05:27 09/26/18 05:27 Recent Labs: Laboratory Last Values WBC 8.3 Th/cmm (4.8-10.8) 09/26/18 05:27 RBC 4.84 Mil/cmm (4.30-5.70) 09/26/18 05:27 Hgb 14.5 gm/dL (12-16) 09/26/18 05:27 Hct 43.1 % (41.0-60) 09/26/18 05:27 MCV 88.9 fl (80-99) 09/26/18 05:27 MCH 30.0 pg (26.0-30.0) 09/26/18 05:27 MCHC Differential 33.7 pg (28.0-36.0) 09/26/18 05:27 RDW 12.3 % (11.5-20.0) 09/26/18 05:27 Plt Count 247 Th/cmm (150-400) 09/26/18 05:27 MPV 7.6 fl 09/26/18 05:27 Add Manual Diff YES 09/23/18 04:54 Neutrophils % 78.5 % (40.0-80.0) 09/26/18 05:27 Band Neutrophils % 6 % (0-10) 09/23/18 04:54 Lymphocytes % 16.0 % (20.0-50.0) L 09/26/18 05:27 Monocytes % 4.2 % (2.0-10.0) 09/26/18 05:27 Eosinophils % 0.6 % (0.0-5.0) 09/26/18 05:27 Basophils % 0.7 % (0.0-2.0) 09/26/18 05:27 Neutrophils (Manual) 82 % (40-80) H 09/23/18 04:54 Lymphocytes 8 % (20-50) L 09/23/18 04:54 Monocytes 4 % (2-10) 09/23/18 04:54 Platelet Estimate ADEQUATE (NORMAL) 09/23/18 04:54 PT 9.9 SECONDS (9.5-11.5) 09/16/18 10:00 INR 0.95 (0.5-1.4) 09/16/18 10:00 Sodium 139 mEq/L (136-145) 09/26/18 05:27 Potassium 4.2 mEq/L (3.5-5.1) 09/26/18 05:27 Chloride 103 mEq/L (98-107) 09/26/18 05:27 Carbon Dioxide 26.7 mEq/L (21.0-31.0) 09/26/18 05:27 Anion Gap 13.5 (7.0-16.0) 09/26/18 05:27 BUN 17 mg/dL (7-25) 09/26/18 05:27 Creatinine 0.6 mg/dL (0.7-1.3) L 09/26/18 05:27 Est GFR ( Amer) > 60.0 ml/min (>90) 09/26/18 05:27 Est GFR (Non-Af Amer) > 60.0 ml/min 09/26/18 05:27 BUN/Creatinine Ratio 28.3 09/26/18 05:27 Glucose 123 mg/dL (70-105) H 09/26/18 05:27 Calcium 9.8 mg/dL (8.6-10.3) 09/26/18 05:27 Total Bilirubin 0.4 mg/dL (0.3-1.0) 09/22/18 04:40 AST 9 U/L (13-39) L 09/22/18 04:40 ALT 12 U/L (7-52) 09/22/18 04:40 Alkaline Phosphatase 60 U/L (34-104) 09/22/18 04:40 Creatine Kinase 18 U/L (30-223) L 09/16/18 10:00 Troponin I 0.01 ng/mL (0.01-0.05) 09/16/18 10:00 B-Natriuretic Peptide 5.2 pg/mL (5.0-100.0) 09/16/18 10:00 Total Protein 6.4 gm/dL (6.0-8.3) 09/22/18 04:40 Albumin 3.6 gm/dL (4.2-5.5) L 09/22/18 04:40 Globulin 2.8 gm/dL 09/22/18 04:40 Albumin/Globulin Ratio 1.3 (1.0-1.8) 09/22/18 04:40 Triglycerides 156 mg/dL (<150) H 09/16/18 10:00 Cholesterol 152 mg/dL (<200) 09/16/18 10:00 LDL Cholesterol Direct 96 mg/dL (75-193) 09/16/18 10:00 HDL Cholesterol 37 mg/dL (23-92) 09/16/18 10:00 Valproic Acid 92.2 ug/mL (50.0-100.0) 09/23/18 04:54 [place] 0.24 mmol/L (0.5-1.0) L 09/27/18 05:25 - Physical Exam Vitals and I&O: Vital Signs Temp 97.6 F 09/27/18 08:00 Pulse 59 09/27/18 08:00 Resp 18 09/27/18 08:00 BP 121/80 09/27/18 08:00 Pulse Ox 98 09/27/18 08:00 Intake & Output 09/26/18 09/27/18 09/27/18 18:59 06:59 18:59 Intake Total 720 200 Output Total 630 Balance 90 200 Weight (lbs) 92.397 kg 92.079 kg Intake: Oral 720 200 Output: Urine 630 Other: # Voids 3 2 # Bowel Movements 1 Weight Source Bedscale Bedscale Active Medications: Current Medications Artificial Tears (Artificial Tears Ophth Soln) 1 drop RIGHT EYE DAILY PRN PRN Reason: Dry Eye Stop: 11/25/18 08:48 Bisacodyl (Dulcolax 10 Mg Supp) 10 mg RC DAILY PRN PRN Reason: Constipation Stop: 11/16/18 07:46 Cyclobenzaprine HCl (Flexeril) 10 mg PO TID [facility]AN Stop: 11/16/18 08:59 Last Admin: 09/27/18 09:52 Dose: 10 mg Dexamethasone Sodium Phosphate (Decadron) 4 mg IVP Q12HR [facility] Stop: 11/21/18 08:59 Last Admin: 09/27/18 09:52 Dose: 4 mg Divalproex Sodium (Depakote Er) 1,500 mg PO HS [facility]; Protocol Stop: 11/15/18 21:49 Last Admin: 09/26/18 21:03 Dose: 1,500 mg Docusate Sodium (Colace) 200 mg PO BID [facility] Stop: 11/19/18 16:59 Last Admin: 09/27/18 09:52 Dose: 200 mg Levetiracetam (Keppra) 500 mg PO BID [facility] Stop: 11/17/18 08:59 Last Admin: 09/27/18 09:52 Dose: 500 mg [place] Citrate (Eskalith) 800 mg PO HS [facility]; Protocol Stop: 11/18/18 20:59 Last Admin: 09/26/18 21:04 Dose: Not Given Magnesium Hydroxide (Milk Of Magnesia) 30 ml PO HS PRN PRN Reason: Constipation Stop: 11/19/18 15:18 Last Admin: 09/21/18 08:28 Dose: 30 ml Morphine Sulfate (Morphine) 2 mg IVP Q4HR PRN PRN Reason: Pain (Severe) Stop: 11/15/18 18:04 Last Admin: 09/27/18 09:52 Dose: 2 mg Morphine Sulfate (Morphine) 1 mg IVP Q4HR PRN PRN Reason: Pain (Moderate) Stop: 11/15/18 18:03 Last Admin: 09/20/18 17:05 Dose: 1 mg Ondansetron HCl (Zofran) 4 mg IV Q6H PRN PRN Reason: Nausea / Vomiting Stop: 11/15/18 18:05 Quetiapine Fumarate (Seroquel Xr) 800 mg PO HS [facility]; Protocol Stop: 11/18/18 20:59 Last Admin: 09/26/18 21:03 Dose: 800 mg Temazepam (Restoril) 15 mg PO HS PRN; Protocol PRN Reason: Insomnia Stop: 11/16/18 11:11 Last Admin: 09/25/18 00:57 Dose: 15 mg General: alert HEENT: NC/AT Neck: Supple Lungs: CTAB Cardiovascular: RRR, Normal S1, Normal S2 Abdomen: soft, non-tender Extremities: clear Neurological: no change, other (left-sided weakness) Internal Medicine Assmt/Plan - Assessment Assessment: 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 h/o htn h/o hyperlipidemia h/o seizures h/o dementia h/o peptic ulcer disease - Plan Plan: waiting on biopsy results as per order sheet Nutritional Asmnt/Malnutr-PDOC - Dietary Evaluation Malnutrition Findings (Please click <Entered> for more info): Nutritional Asmnt/Malnutrition Start: 09/19/18 11: 38 Text: Status: Complete Freq: Protocol: Document 09/19/18 11:39 HALEY (Rec: 09/19/18 11:47 HALEY ORTEGA- FNS1) Nutritional Asmnt/Malnutrition Patient General Information Nutritional Screening Moderate Risk Diagnosis Syncope R/O TIA, cardiac arrythmias Pertinent Medical Hx/Surgical Hx HTN, diabetes, dyslipidemia, seizure, psych disorder Subjective Information Patient states his appetite is good and he has gained 10lb over the past few months because his appetite is so good. States he can tolerate all diet texture, no problems chewing or swallowing. Current Diet Order/ Nutrition Support Low cholesterol Patient / S.O Not Indicated Pertinent Medications Dulcolax, Zofran Pertinent Labs (09/16) Albumin 3.8, TAG 156 Nutritional Hx/Data Height 1.75 m Height (Calculated Centimeters) 175.3 Current Weight (lbs) 84.368 kg Weight (Calculated Kilograms) 84.4 Weight (Calculated Grams) 49969.2 [place] Body Weight 160 % [place] Body Weight 116 Body Mass Index (BMI) 27.4 Recent Weight Change No Weight Status Overweight GI Symptoms GI Symptoms None Last BM none noted since admission Difficult in: None Food Allergies No Cultural/Ethnic/Denominational Belief none indicated Usual diet at home unknown Skin Integrity/Comment: [place] 16, Intact, dilan/ incision on right upper head Current %PO Good (75-100%) Estimated Nutritional Goals BEE in Kcals: Using Current wt Calories/Kcals/Kg 22-27 kcal/kg using CBW 84.5 kg Kcals Calculated 6892-3914 kcal/day Protein: Using Current wt Protein g/k.8-1 gm/kg Protein Calculated 70-85 gm/day Fluid: ml ~9995-9244 ml/day Nutritional Problem 1. Problem Problem No nutrition diagnosis at this time Intervention/Recommendation Comments 1. Continue low cholesterol diet as tolerated by patient. Expected Outcomes/Goals Expected Outcomes/Goals Oral intake >75% of meals, weight stable, nutrition related labs WNL
--- NOTE | 2018-09-27 13:11 | General Progress Note ---
Subjective - Review of Systems Service Date: 09/27/18 Subjective: Patient has no complaint of headache dizziness awaiting biopsy report patient has weakness on the left side Objective - Results Result Diagrams: 09/26/18 05:27 09/26/18 05:27 Recent Labs: Laboratory Last Values WBC 8.3 Th/cmm (4.8-10.8) 09/26/18 05:27 RBC 4.84 Mil/cmm (4.30-5.70) 09/26/18 05:27 Hgb 14.5 gm/dL (12-16) 09/26/18 05:27 Hct 43.1 % (41.0-60) 09/26/18 05:27 MCV 88.9 fl (80-99) 09/26/18 05:27 MCH 30.0 pg (26.0-30.0) 09/26/18 05:27 MCHC Differential 33.7 pg (28.0-36.0) 09/26/18 05:27 RDW 12.3 % (11.5-20.0) 09/26/18 05:27 Plt Count 247 Th/cmm (150-400) 09/26/18 05:27 MPV 7.6 fl 09/26/18 05:27 Add Manual Diff YES 09/23/18 04:54 Neutrophils % 78.5 % (40.0-80.0) 09/26/18 05:27 Band Neutrophils % 6 % (0-10) 09/23/18 04:54 Lymphocytes % 16.0 % (20.0-50.0) L 09/26/18 05:27 Monocytes % 4.2 % (2.0-10.0) 09/26/18 05:27 Eosinophils % 0.6 % (0.0-5.0) 09/26/18 05:27 Basophils % 0.7 % (0.0-2.0) 09/26/18 05:27 Neutrophils (Manual) 82 % (40-80) H 09/23/18 04:54 Lymphocytes 8 % (20-50) L 09/23/18 04:54 Monocytes 4 % (2-10) 09/23/18 04:54 Platelet Estimate ADEQUATE (NORMAL) 09/23/18 04:54 PT 9.9 SECONDS (9.5-11.5) 09/16/18 10:00 INR 0.95 (0.5-1.4) 09/16/18 10:00 Sodium 139 mEq/L (136-145) 09/26/18 05:27 Potassium 4.2 mEq/L (3.5-5.1) 09/26/18 05:27 Chloride 103 mEq/L (98-107) 09/26/18 05:27 Carbon Dioxide 26.7 mEq/L (21.0-31.0) 09/26/18 05:27 Anion Gap 13.5 (7.0-16.0) 09/26/18 05:27 BUN 17 mg/dL (7-25) 09/26/18 05:27 Creatinine 0.6 mg/dL (0.7-1.3) L 09/26/18 05:27 Est GFR ( Amer) > 60.0 ml/min (>90) 09/26/18 05:27 Est GFR (Non-Af Amer) > 60.0 ml/min 09/26/18 05:27 BUN/Creatinine Ratio 28.3 09/26/18 05:27 Glucose 123 mg/dL (70-105) H 09/26/18 05:27 Calcium 9.8 mg/dL (8.6-10.3) 09/26/18 05:27 Total Bilirubin 0.4 mg/dL (0.3-1.0) 09/22/18 04:40 AST 9 U/L (13-39) L 09/22/18 04:40 ALT 12 U/L (7-52) 09/22/18 04:40 Alkaline Phosphatase 60 U/L (34-104) 09/22/18 04:40 Creatine Kinase 18 U/L (30-223) L 09/16/18 10:00 Troponin I 0.01 ng/mL (0.01-0.05) 09/16/18 10:00 B-Natriuretic Peptide 5.2 pg/mL (5.0-100.0) 09/16/18 10:00 Total Protein 6.4 gm/dL (6.0-8.3) 09/22/18 04:40 Albumin 3.6 gm/dL (4.2-5.5) L 09/22/18 04:40 Globulin 2.8 gm/dL 09/22/18 04:40 Albumin/Globulin Ratio 1.3 (1.0-1.8) 09/22/18 04:40 Triglycerides 156 mg/dL (<150) H 09/16/18 10:00 Cholesterol 152 mg/dL (<200) 09/16/18 10:00 LDL Cholesterol Direct 96 mg/dL (75-193) 09/16/18 10:00 HDL Cholesterol 37 mg/dL (23-92) 09/16/18 10:00 Valproic Acid 92.2 ug/mL (50.0-100.0) 09/23/18 04:54 [place] 0.24 mmol/L (0.5-1.0) L 09/27/18 05:25 - Physical Exam Vitals and I&O: Vital Signs Temp 98.2 F 09/27/18 12:00 Pulse 64 09/27/18 12:00 Resp 18 09/27/18 12:00 BP 118/66 09/27/18 12:00 Pulse Ox 96 09/27/18 12:00 Intake & Output 09/26/18 09/27/18 09/27/18 18:59 06:59 18:59 Intake Total 720 200 Output Total 630 Balance 90 200 Weight (lbs) 92.397 kg 92.079 kg Intake: Oral 720 200 Output: Urine 630 Other: # Voids 3 2 # Bowel Movements 1 Weight Source Bedscale Bedscale Active Medications: Current Medications Artificial Tears (Artificial Tears Ophth Soln) 1 drop RIGHT EYE DAILY PRN PRN Reason: Dry Eye Stop: 11/25/18 08:48 Bisacodyl (Dulcolax 10 Mg Supp) 10 mg RC DAILY PRN PRN Reason: Constipation Stop: 11/16/18 07:46 Cyclobenzaprine HCl (Flexeril) 10 mg PO TID [facility] Stop: 11/16/18 08:59 Last Admin: 09/27/18 09:52 Dose: 10 mg Dexamethasone Sodium Phosphate (Decadron) 4 mg IVP Q12HR [facility] Stop: 11/21/18 08:59 Last Admin: 09/27/18 09:52 Dose: 4 mg Divalproex Sodium (Depakote Er) 1,500 mg PO HS [facility]; Protocol Stop: 11/15/18 21:49 Last Admin: 09/26/18 21:03 Dose: 1,500 mg Docusate Sodium (Colace) 200 mg PO BID [facility] Stop: 11/19/18 16:59 Last Admin: 09/27/18 09:52 Dose: 200 mg Levetiracetam (Keppra) 500 mg PO BID [facility] Stop: 11/17/18 08:59 Last Admin: 09/27/18 09:52 Dose: 500 mg [place] Citrate (Eskalith) 800 mg PO [facility]; Protocol Stop: 11/18/18 20:59 Last Admin: 09/26/18 21:04 Dose: Not Given Magnesium Hydroxide (Milk Of Magnesia) 30 ml PO HS PRN PRN Reason: Constipation Stop: 11/19/18 15:18 Last Admin: 09/21/18 08:28 Dose: 30 ml Morphine Sulfate (Morphine) 2 mg IVP Q4HR PRN PRN Reason: Pain (Severe) Stop: 11/15/18 18:04 Last Admin: 09/27/18 09:52 Dose: 2 mg Morphine Sulfate (Morphine) 1 mg IVP Q4HR PRN PRN Reason: Pain (Moderate) Stop: 11/15/18 18:03 Last Admin: 09/20/18 17:05 Dose: 1 mg Ondansetron HCl (Zofran) 4 mg IV Q6H PRN PRN Reason: Nausea / Vomiting Stop: 11/15/18 18:05 Quetiapine Fumarate (Seroquel Xr) 800 mg PO HS [facility]; Protocol Stop: 11/18/18 20:59 Last Admin: 09/26/18 21:03 Dose: 800 mg Temazepam (Restoril) 15 mg PO HS PRN; Protocol PRN Reason: Insomnia Stop: 11/16/18 11:11 Last Admin: 09/25/18 00:57 Dose: 15 mg General: Alert HEENT: Atraumatic Neck: Supple Cardiovascular: Normal S1 Lungs: Clear to auscultation Abdomen: Bowel sounds, Soft Extremities: Pulses (normal) Neurological: Other (left hemiplegia) Assessment/Plan - Assessment Assessment: 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 Hypertension Diabetes mellitus type 2 Hyperlipidemia Seizure disorder - Plan Plan: Continue physical therapy awaking brain biopsy report Nutritional Asmnt/Malnutr-PDOC - Dietary Evaluation Malnutrition Findings (Please click <Entered> for more info): Nutritional Asmnt/Malnutrition Start: 09/19/18 11: 38 Text: Status: Complete Freq: Protocol: Document 09/19/18 11:39 DELFINONAYABELLA (Rec: 09/19/18 11:47 ARANZABELLA ORTEGA- FNS1) Nutritional Asmnt/Malnutrition Patient General Information Nutritional Screening Moderate Risk Diagnosis Syncope R/O TIA, cardiac arrythmias Pertinent Medical Hx/Surgical Hx HTN, diabetes, dyslipidemia, seizure, psych disorder Subjective Information Patient states his appetite is good and he has gained 10lb over the past few months because his appetite is so good. States he can tolerate all diet texture, no problems chewing or swallowing. Current Diet Order/ Nutrition Support Low cholesterol Patient / S.O Not Indicated Pertinent Medications Dulcolax, Zofran Pertinent Labs (09/16) Albumin 3.8, TAG 156 Nutritional Hx/Data Height 1.75 m Height (Calculated Centimeters) 175.3 Current Weight (lbs) 84.368 kg Weight (Calculated Kilograms) 84.4 Weight (Calculated Grams) 25067.2 [place] Body Weight 160 % [place] Body Weight 116 Body Mass Index (BMI) 27.4 Recent Weight Change No Weight Status Overweight GI Symptoms GI Symptoms None Last BM none noted since admission Difficult in: None Food Allergies No Cultural/Ethnic/Roman Catholic Belief none indicated Usual diet at home unknown Skin Integrity/Comment: [place] 16, Intact, dilan/ incision on right upper head Current %PO Good (75-100%) Estimated Nutritional Goals BEE in Kcals: Using Current wt Calories/Kcals/Kg 22-27 kcal/kg using CBW 84.5 kg Kcals Calculated 3919-8420 kcal/day Protein: Using Current wt Protein g/k.8-1 gm/kg Protein Calculated 70-85 gm/day Fluid: ml ~6302-2862 ml/day Nutritional Problem 1. Problem Problem No nutrition diagnosis at this time Intervention/Recommendation Comments 1. Continue low cholesterol diet as tolerated by patient. Expected Outcomes/Goals Expected Outcomes/Goals Oral intake >75% of meals, weight stable, nutrition related labs WNL
[2018-09-27] MEDS: Lithium Citrate 300 mg/5 mL Soln UDC PO SCH (20:32)
[2018-09-28] MEDS: Morphine Sulfate 2 mg/mL 1mL Syr IVP PRN ×4 (08:27→20:55)
[2018-09-28] MEDS: Dexamethasone Sodium Phos 4 mg/mL Vial IVP SCH ×2 (08:27→20:34)
--- NOTE | 2018-09-28 11:47 | General Progress Note ---
Subjective - Review of Systems Service Date: 09/28/18 Subjective: NO SZ . headache unchanged. left arm weakness, left leg weak. Objective - Results Result Diagrams: 09/26/18 05:27 09/26/18 05:27 Recent Labs: Laboratory Last Values WBC 8.3 Th/cmm (4.8-10.8) 09/26/18 05:27 RBC 4.84 Mil/cmm (4.30-5.70) 09/26/18 05:27 Hgb 14.5 gm/dL (12-16) 09/26/18 05:27 Hct 43.1 % (41.0-60) 09/26/18 05:27 MCV 88.9 fl (80-99) 09/26/18 05:27 MCH 30.0 pg (26.0-30.0) 09/26/18 05:27 MCHC Differential 33.7 pg (28.0-36.0) 09/26/18 05:27 RDW 12.3 % (11.5-20.0) 09/26/18 05:27 Plt Count 247 Th/cmm (150-400) 09/26/18 05:27 MPV 7.6 fl 09/26/18 05:27 Add Manual Diff YES 09/23/18 04:54 Neutrophils % 78.5 % (40.0-80.0) 09/26/18 05:27 Band Neutrophils % 6 % (0-10) 09/23/18 04:54 Lymphocytes % 16.0 % (20.0-50.0) L 09/26/18 05:27 Monocytes % 4.2 % (2.0-10.0) 09/26/18 05:27 Eosinophils % 0.6 % (0.0-5.0) 09/26/18 05:27 Basophils % 0.7 % (0.0-2.0) 09/26/18 05:27 Neutrophils (Manual) 82 % (40-80) H 09/23/18 04:54 Lymphocytes 8 % (20-50) L 09/23/18 04:54 Monocytes 4 % (2-10) 09/23/18 04:54 Platelet Estimate ADEQUATE (NORMAL) 09/23/18 04:54 PT 9.9 SECONDS (9.5-11.5) 09/16/18 10:00 INR 0.95 (0.5-1.4) 09/16/18 10:00 Sodium 139 mEq/L (136-145) 09/26/18 05:27 Potassium 4.2 mEq/L (3.5-5.1) 09/26/18 05:27 Chloride 103 mEq/L (98-107) 09/26/18 05:27 Carbon Dioxide 26.7 mEq/L (21.0-31.0) 09/26/18 05:27 Anion Gap 13.5 (7.0-16.0) 09/26/18 05:27 BUN 17 mg/dL (7-25) 09/26/18 05:27 Creatinine 0.6 mg/dL (0.7-1.3) L 09/26/18 05:27 Est GFR ( Amer) > 60.0 ml/min (>90) 09/26/18 05:27 Est GFR (Non-Af Amer) > 60.0 ml/min 09/26/18 05:27 BUN/Creatinine Ratio 28.3 09/26/18 05:27 Glucose 123 mg/dL (70-105) H 09/26/18 05:27 Calcium 9.8 mg/dL (8.6-10.3) 09/26/18 05:27 Total Bilirubin 0.4 mg/dL (0.3-1.0) 09/22/18 04:40 AST 9 U/L (13-39) L 09/22/18 04:40 ALT 12 U/L (7-52) 09/22/18 04:40 Alkaline Phosphatase 60 U/L (34-104) 09/22/18 04:40 Creatine Kinase 18 U/L (30-223) L 09/16/18 10:00 Troponin I 0.01 ng/mL (0.01-0.05) 09/16/18 10:00 B-Natriuretic Peptide 5.2 pg/mL (5.0-100.0) 09/16/18 10:00 Total Protein 6.4 gm/dL (6.0-8.3) 09/22/18 04:40 Albumin 3.6 gm/dL (4.2-5.5) L 09/22/18 04:40 Globulin 2.8 gm/dL 09/22/18 04:40 Albumin/Globulin Ratio 1.3 (1.0-1.8) 09/22/18 04:40 Triglycerides 156 mg/dL (<150) H 09/16/18 10:00 Cholesterol 152 mg/dL (<200) 09/16/18 10:00 LDL Cholesterol Direct 96 mg/dL (75-193) 09/16/18 10:00 HDL Cholesterol 37 mg/dL (23-92) 09/16/18 10:00 Valproic Acid 92.2 ug/mL (50.0-100.0) 09/23/18 04:54 [place] 0.24 mmol/L (0.5-1.0) L 09/27/18 05:25 - Physical Exam Vitals and I&O: Vital Signs Temp 97.5 F 09/28/18 11:42 Pulse 75 09/28/18 11:42 Resp 18 09/28/18 11:42 BP 136/92 09/28/18 11:42 Pulse Ox 92 09/28/18 11:42 Intake & Output 09/27/18 09/28/18 09/28/18 18:59 06:59 18:59 Intake Total 700 200 Output Total 0 Balance 700 200 Weight (lbs) 92.079 kg 92.079 kg Intake: Oral 700 200 Output: Stool 0 Other: # Voids 4 2 Weight Source Bedscale Bedscale Active Medications: Current Medications Artificial Tears (Artificial Tears Ophth Soln) 1 drop RIGHT EYE DAILY PRN PRN Reason: Dry Eye Stop: 11/25/18 08:48 Last Admin: 09/27/18 22:21 Dose: 1 drop Bisacodyl (Dulcolax 10 Mg Supp) 10 mg RC DAILY PRN PRN Reason: Constipation Stop: 11/16/18 07:46 Cyclobenzaprine HCl (Flexeril) 10 mg PO TID [facility] Stop: 11/16/18 08:59 Last Admin: 09/28/18 08:27 Dose: 10 mg Dexamethasone Sodium Phosphate (Decadron) 2 mg IVP Q12HR [facility] Stop: 11/27/18 08:59 Last Admin: 09/28/18 08:27 Dose: 2 mg Divalproex Sodium (Depakote Er) 1,500 mg PO HS [facility]; Protocol Stop: 11/15/18 21:49 Last Admin: 09/27/18 20:31 Dose: 1,500 mg Docusate Sodium (Colace) 200 mg PO BID [facility] Stop: 11/19/18 16:59 Last Admin: 09/28/18 08:27 Dose: 200 mg Levetiracetam (Keppra) 500 mg PO BID [facility] Stop: 11/17/18 08:59 Last Admin: 09/28/18 08:27 Dose: 500 mg [place] Citrate (Eskalith) 800 mg PO HS [facility]; Protocol Stop: 11/18/18 20:59 Last Admin: 09/27/18 20:32 Dose: 800 mg Magnesium Hydroxide (Milk Of Magnesia) 30 ml PO HS PRN PRN Reason: Constipation Stop: 11/19/18 15:18 Last Admin: 09/21/18 08:28 Dose: 30 ml Morphine Sulfate (Morphine) 2 mg IVP Q4HR PRN PRN Reason: Pain (Severe) Stop: 11/15/18 18:04 Last Admin: 09/27/18 22:24 Dose: 2 mg Morphine Sulfate (Morphine) 1 mg IVP Q4HR PRN PRN Reason: Pain (Moderate) Stop: 11/15/18 18:03 Last Admin: 09/28/18 08:27 Dose: 1 mg Ondansetron HCl (Zofran) 4 mg IV Q6H PRN PRN Reason: Nausea / Vomiting Stop: 11/15/18 18:05 Quetiapine Fumarate (Seroquel Xr) 800 mg PO HS [facility]; Protocol Stop: 11/18/18 20:59 Last Admin: 09/27/18 20:32 Dose: 800 mg Temazepam (Restoril) 15 mg PO HS PRN; Protocol PRN Reason: Insomnia Stop: 11/16/18 11:11 Last Admin: 09/25/18 00:57 Dose: 15 mg General: Alert HEENT: Atraumatic Neck: Supple Cardiovascular: Normal S1 Lungs: Clear to auscultation Abdomen: Bowel sounds, Soft Extremities: Pulses (normal) Neurological: Other (left hemiplegia) Assessment/Plan - Assessment Assessment: * Brain tumor with no evidence of mets on CT chest/abd/pelvis. * awaiting path report from [place] on brain tumor biopsy Follow neuro recs and continue decadron tapering dose, awaiting path.. marlon Araujo to retrieve path report from the hospital. dw daughter Nutritional Asmnt/Malnutr-PDOC - Dietary Evaluation Malnutrition Findings (Please click <Entered> for more info): Nutritional Asmnt/Malnutrition Start: 09/19/18 11: 38 Text: Status: Complete Freq: Protocol: Document 09/19/18 11:39 HALEY (Rec: 09/19/18 11:47 ARANZABELLA ORTEGA- FNS1) Nutritional Asmnt/Malnutrition Patient General Information Nutritional Screening Moderate Risk Diagnosis Syncope R/O TIA, cardiac arrythmias Pertinent Medical Hx/Surgical Hx HTN, diabetes, dyslipidemia, seizure, psych disorder Subjective Information Patient states his appetite is good and he has gained 10lb over the past few months because his appetite is so good. States he can tolerate all diet texture, no problems chewing or swallowing. Current Diet Order/ Nutrition Support Low cholesterol Patient / S.O Not Indicated Pertinent Medications Dulcolax, Zofran Pertinent Labs (09/16) Albumin 3.8, TAG 156 Nutritional Hx/Data Height 1.75 m Height (Calculated Centimeters) 175.3 Current Weight (lbs) 84.368 kg Weight (Calculated Kilograms) 84.4 Weight (Calculated Grams) 32850.2 [place] Body Weight 160 % [place] Body Weight 116 Body Mass Index (BMI) 27.4 Recent Weight Change No Weight Status Overweight GI Symptoms GI Symptoms None Last BM none noted since admission Difficult in: None Food Allergies No Cultural/Ethnic/Sabianism Belief none indicated Usual diet at home unknown Skin Integrity/Comment: Connor 16, Intact, dilan/ incision on right upper head Current %PO Good (75-100%) Estimated Nutritional Goals BEE in Kcals: Using Current wt Calories/Kcals/Kg 22-27 kcal/kg using CBW 84.5 kg Kcals Calculated 5322-4793 kcal/day Protein: Using Current wt Protein g/k.8-1 gm/kg Protein Calculated 70-85 gm/day Fluid: ml ~8430-9548 ml/day Nutritional Problem 1. Problem Problem No nutrition diagnosis at this time Intervention/Recommendation Comments 1. Continue low cholesterol diet as tolerated by patient. Expected Outcomes/Goals Expected Outcomes/Goals Oral intake >75% of meals, weight stable, nutrition related labs WNL
--- NOTE | 2018-09-28 12:49 | Internal Medicine Prog Note ---
Internal Medicine Subjective - Subjective Patient seen and examined:: chart reviewed Patient is:: awake, verbal, in bed, other (left-sided weakness , no seizure activity ) Per staff patient has:: no adverse event Internal Medicine Objective - Results Result Diagrams: 09/26/18 05:27 09/26/18 05:27 Recent Labs: Laboratory Last Values WBC 8.3 Th/cmm (4.8-10.8) 09/26/18 05:27 RBC 4.84 Mil/cmm (4.30-5.70) 09/26/18 05:27 Hgb 14.5 gm/dL (12-16) 09/26/18 05:27 Hct 43.1 % (41.0-60) 09/26/18 05:27 MCV 88.9 fl (80-99) 09/26/18 05:27 MCH 30.0 pg (26.0-30.0) 09/26/18 05:27 MCHC Differential 33.7 pg (28.0-36.0) 09/26/18 05:27 RDW 12.3 % (11.5-20.0) 09/26/18 05:27 Plt Count 247 Th/cmm (150-400) 09/26/18 05:27 MPV 7.6 fl 09/26/18 05:27 Add Manual Diff YES 09/23/18 04:54 Neutrophils % 78.5 % (40.0-80.0) 09/26/18 05:27 Band Neutrophils % 6 % (0-10) 09/23/18 04:54 Lymphocytes % 16.0 % (20.0-50.0) L 09/26/18 05:27 Monocytes % 4.2 % (2.0-10.0) 09/26/18 05:27 Eosinophils % 0.6 % (0.0-5.0) 09/26/18 05:27 Basophils % 0.7 % (0.0-2.0) 09/26/18 05:27 Neutrophils (Manual) 82 % (40-80) H 09/23/18 04:54 Lymphocytes 8 % (20-50) L 09/23/18 04:54 Monocytes 4 % (2-10) 09/23/18 04:54 Platelet Estimate ADEQUATE (NORMAL) 09/23/18 04:54 PT 9.9 SECONDS (9.5-11.5) 09/16/18 10:00 INR 0.95 (0.5-1.4) 09/16/18 10:00 Sodium 139 mEq/L (136-145) 09/26/18 05:27 Potassium 4.2 mEq/L (3.5-5.1) 09/26/18 05:27 Chloride 103 mEq/L (98-107) 09/26/18 05:27 Carbon Dioxide 26.7 mEq/L (21.0-31.0) 09/26/18 05:27 Anion Gap 13.5 (7.0-16.0) 09/26/18 05:27 BUN 17 mg/dL (7-25) 09/26/18 05:27 Creatinine 0.6 mg/dL (0.7-1.3) L 09/26/18 05:27 Est GFR ( Amer) > 60.0 ml/min (>90) 09/26/18 05:27 Est GFR (Non-Af Amer) > 60.0 ml/min 09/26/18 05:27 BUN/Creatinine Ratio 28.3 09/26/18 05:27 Glucose 123 mg/dL (70-105) H 09/26/18 05:27 Calcium 9.8 mg/dL (8.6-10.3) 09/26/18 05:27 Total Bilirubin 0.4 mg/dL (0.3-1.0) 09/22/18 04:40 AST 9 U/L (13-39) L 09/22/18 04:40 ALT 12 U/L (7-52) 09/22/18 04:40 Alkaline Phosphatase 60 U/L (34-104) 09/22/18 04:40 Creatine Kinase 18 U/L (30-223) L 09/16/18 10:00 Troponin I 0.01 ng/mL (0.01-0.05) 09/16/18 10:00 B-Natriuretic Peptide 5.2 pg/mL (5.0-100.0) 09/16/18 10:00 Total Protein 6.4 gm/dL (6.0-8.3) 09/22/18 04:40 Albumin 3.6 gm/dL (4.2-5.5) L 09/22/18 04:40 Globulin 2.8 gm/dL 09/22/18 04:40 Albumin/Globulin Ratio 1.3 (1.0-1.8) 09/22/18 04:40 Triglycerides 156 mg/dL (<150) H 09/16/18 10:00 Cholesterol 152 mg/dL (<200) 09/16/18 10:00 LDL Cholesterol Direct 96 mg/dL (75-193) 09/16/18 10:00 HDL Cholesterol 37 mg/dL (23-92) 09/16/18 10:00 Valproic Acid 92.2 ug/mL (50.0-100.0) 09/23/18 04:54 [place] 0.24 mmol/L (0.5-1.0) L 09/27/18 05:25 - Physical Exam Vitals and I&O: Vital Signs Temp 97.5 F 09/28/18 11:42 Pulse 75 09/28/18 11:42 Resp 18 09/28/18 11:42 BP 136/92 09/28/18 11:42 Pulse Ox 92 09/28/18 11:42 Intake & Output 09/27/18 09/28/18 09/28/18 18:59 06:59 18:59 Intake Total 700 200 Output Total 0 Balance 700 200 Weight (lbs) 92.079 kg 92.079 kg Intake: Oral 700 200 Output: Stool 0 Other: # Voids 4 2 Weight Source Bedscale Bedscale Active Medications: Current Medications Artificial Tears (Artificial Tears Ophth Soln) 1 drop RIGHT EYE DAILY PRN PRN Reason: Dry Eye Stop: 11/25/18 08:48 Last Admin: 09/27/18 22:21 Dose: 1 drop Bisacodyl (Dulcolax 10 Mg Supp) 10 mg RC DAILY PRN PRN Reason: Constipation Stop: 11/16/18 07:46 Cyclobenzaprine HCl (Flexeril) 10 mg PO TID RYAN Stop: 11/16/18 08:59 Last Admin: 09/28/18 08:27 Dose: 10 mg Dexamethasone Sodium Phosphate (Decadron) 2 mg IVP Q12HR RYAN Stop: 11/27/18 08:59 Last Admin: 09/28/18 08:27 Dose: 2 mg Divalproex Sodium (Depakote Er) 1,500 mg PO HS RYAN; Protocol Stop: 11/15/18 21:49 Last Admin: 09/27/18 20:31 Dose: 1,500 mg Docusate Sodium (Colace) 200 mg PO BID RYAN Stop: 11/19/18 16:59 Last Admin: 09/28/18 08:27 Dose: 200 mg Levetiracetam (Keppra) 500 mg PO BID RYAN Stop: 11/17/18 08:59 Last Admin: 09/28/18 08:27 Dose: 500 mg [place] Citrate (Eskalith) 800 mg PO HS [facility]; Protocol Stop: 11/18/18 20:59 Last Admin: 09/27/18 20:32 Dose: 800 mg Magnesium Hydroxide (Milk Of Magnesia) 30 ml PO HS PRN PRN Reason: Constipation Stop: 11/19/18 15:18 Last Admin: 09/21/18 08:28 Dose: 30 ml Morphine Sulfate (Morphine) 2 mg IVP Q4HR PRN PRN Reason: Pain (Severe) Stop: 11/15/18 18:04 Last Admin: 09/27/18 22:24 Dose: 2 mg Morphine Sulfate (Morphine) 1 mg IVP Q4HR PRN PRN Reason: Pain (Moderate) Stop: 11/15/18 18:03 Last Admin: 09/28/18 08:27 Dose: 1 mg Ondansetron HCl (Zofran) 4 mg IV Q6H PRN PRN Reason: Nausea / Vomiting Stop: 11/15/18 18:05 Quetiapine Fumarate (Seroquel Xr) 800 mg PO HS RYAN; Protocol Stop: 11/18/18 20:59 Last Admin: 09/27/18 20:32 Dose: 800 mg Temazepam (Restoril) 15 mg PO HS PRN; Protocol PRN Reason: Insomnia Stop: 11/16/18 11:11 Last Admin: 09/25/18 00:57 Dose: 15 mg General: alert HEENT: NC/AT Neck: Supple Lungs: CTAB Cardiovascular: RRR, Normal S1, Normal S2 Abdomen: soft, non-tender Extremities: clear Neurological: no change, other (left-sided weakness) Internal Medicine Assmt/Plan - Assessment Assessment: 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 h/o htn h/o hyperlipidemia h/o seizures h/o dementia h/o peptic ulcer disease - Plan Plan: waiting on biopsy results as per order sheet Nutritional Asmnt/Malnutr-PDOC - Dietary Evaluation Malnutrition Findings (Please click <Entered> for more info): Nutritional Asmnt/Malnutrition Start: 09/19/18 11: 38 Text: Status: Complete Freq: Protocol: Document 09/19/18 11:39 HALEY (Rec: 09/19/18 11:47 HALEY ORTEGA- [email or web address]) Nutritional Asmnt/Malnutrition Patient General Information Nutritional Screening Moderate Risk Diagnosis Syncope R/O TIA, cardiac arrythmias Pertinent Medical Hx/Surgical Hx HTN, diabetes, dyslipidemia, seizure, psych disorder Subjective Information Patient states his appetite is good and he has gained 10lb over the past few months because his appetite is so good. States he can tolerate all diet texture, no problems chewing or swallowing. Current Diet Order/ Nutrition Support Low cholesterol Patient / S.O Not Indicated Pertinent Medications Dulcolax, Zofran Pertinent Labs (09/16) Albumin 3.8, TAG 156 Nutritional Hx/Data Height 1.75 m Height (Calculated Centimeters) 175.3 Current Weight (lbs) 84.368 kg Weight (Calculated Kilograms) 84.4 Weight (Calculated Grams) 61978.2 [place] Body Weight 160 % [place] Body Weight 116 Body Mass Index (BMI) 27.4 Recent Weight Change No Weight Status Overweight GI Symptoms GI Symptoms None Last BM none noted since admission Difficult in: None Food Allergies No Cultural/Ethnic/Faith Belief none indicated Usual diet at home unknown Skin Integrity/Comment: [place] 16, Intact, dilan/ incision on right upper head Current %PO Good (75-100%) Estimated Nutritional Goals BEE in Kcals: Using Current wt Calories/Kcals/Kg 22-27 kcal/kg using CBW 84.5 kg Kcals Calculated 1030-1229 kcal/day Protein: Using Current wt Protein g/k.8-1 gm/kg Protein Calculated 70-85 gm/day Fluid: ml ~8072-0767 ml/day Nutritional Problem 1. Problem Problem No nutrition diagnosis at this time Intervention/Recommendation Comments 1. Continue low cholesterol diet as tolerated by patient. Expected Outcomes/Goals Expected Outcomes/Goals Oral intake >75% of meals, weight stable, nutrition related labs WNL
--- NOTE | 2018-09-28 13:07 | General Progress Note ---
Subjective - Review of Systems Service Date: 09/28/18 Subjective: Patient has no complaint of headache dizziness awaiting biopsy report patient has weakness on the left side Objective - Results Result Diagrams: 09/26/18 05:27 09/26/18 05:27 Recent Labs: Laboratory Last Values WBC 8.3 Th/cmm (4.8-10.8) 09/26/18 05:27 RBC 4.84 Mil/cmm (4.30-5.70) 09/26/18 05:27 Hgb 14.5 gm/dL (12-16) 09/26/18 05:27 Hct 43.1 % (41.0-60) 09/26/18 05:27 MCV 88.9 fl (80-99) 09/26/18 05:27 MCH 30.0 pg (26.0-30.0) 09/26/18 05:27 MCHC Differential 33.7 pg (28.0-36.0) 09/26/18 05:27 RDW 12.3 % (11.5-20.0) 09/26/18 05:27 Plt Count 247 Th/cmm (150-400) 09/26/18 05:27 MPV 7.6 fl 09/26/18 05:27 Add Manual Diff YES 09/23/18 04:54 Neutrophils % 78.5 % (40.0-80.0) 09/26/18 05:27 Band Neutrophils % 6 % (0-10) 09/23/18 04:54 Lymphocytes % 16.0 % (20.0-50.0) L 09/26/18 05:27 Monocytes % 4.2 % (2.0-10.0) 09/26/18 05:27 Eosinophils % 0.6 % (0.0-5.0) 09/26/18 05:27 Basophils % 0.7 % (0.0-2.0) 09/26/18 05:27 Neutrophils (Manual) 82 % (40-80) H 09/23/18 04:54 Lymphocytes 8 % (20-50) L 09/23/18 04:54 Monocytes 4 % (2-10) 09/23/18 04:54 Platelet Estimate ADEQUATE (NORMAL) 09/23/18 04:54 PT 9.9 SECONDS (9.5-11.5) 09/16/18 10:00 INR 0.95 (0.5-1.4) 09/16/18 10:00 Sodium 139 mEq/L (136-145) 09/26/18 05:27 Potassium 4.2 mEq/L (3.5-5.1) 09/26/18 05:27 Chloride 103 mEq/L (98-107) 09/26/18 05:27 Carbon Dioxide 26.7 mEq/L (21.0-31.0) 09/26/18 05:27 Anion Gap 13.5 (7.0-16.0) 09/26/18 05:27 BUN 17 mg/dL (7-25) 09/26/18 05:27 Creatinine 0.6 mg/dL (0.7-1.3) L 09/26/18 05:27 Est GFR ( Amer) > 60.0 ml/min (>90) 09/26/18 05:27 Est GFR (Non-Af Amer) > 60.0 ml/min 09/26/18 05:27 BUN/Creatinine Ratio 28.3 09/26/18 05:27 Glucose 123 mg/dL (70-105) H 09/26/18 05:27 Calcium 9.8 mg/dL (8.6-10.3) 09/26/18 05:27 Total Bilirubin 0.4 mg/dL (0.3-1.0) 09/22/18 04:40 AST 9 U/L (13-39) L 09/22/18 04:40 ALT 12 U/L (7-52) 09/22/18 04:40 Alkaline Phosphatase 60 U/L (34-104) 09/22/18 04:40 Creatine Kinase 18 U/L (30-223) L 09/16/18 10:00 Troponin I 0.01 ng/mL (0.01-0.05) 09/16/18 10:00 B-Natriuretic Peptide 5.2 pg/mL (5.0-100.0) 09/16/18 10:00 Total Protein 6.4 gm/dL (6.0-8.3) 09/22/18 04:40 Albumin 3.6 gm/dL (4.2-5.5) L 09/22/18 04:40 Globulin 2.8 gm/dL 09/22/18 04:40 Albumin/Globulin Ratio 1.3 (1.0-1.8) 09/22/18 04:40 Triglycerides 156 mg/dL (<150) H 09/16/18 10:00 Cholesterol 152 mg/dL (<200) 09/16/18 10:00 LDL Cholesterol Direct 96 mg/dL (75-193) 09/16/18 10:00 HDL Cholesterol 37 mg/dL (23-92) 09/16/18 10:00 Valproic Acid 92.2 ug/mL (50.0-100.0) 09/23/18 04:54 [place] 0.24 mmol/L (0.5-1.0) L 09/27/18 05:25 - Physical Exam Vitals and I&O: Vital Signs Temp 97.5 F 09/28/18 11:42 Pulse 75 09/28/18 11:42 Resp 18 09/28/18 11:42 BP 136/92 09/28/18 11:42 Pulse Ox 92 09/28/18 11:42 Intake & Output 09/27/18 09/28/18 09/28/18 18:59 06:59 18:59 Intake Total 700 200 Output Total 0 Balance 700 200 Weight (lbs) 92.079 kg 92.079 kg Intake: Oral 700 200 Output: Stool 0 Other: # Voids 4 2 Weight Source Bedscale Bedscale Active Medications: Current Medications Artificial Tears (Artificial Tears Ophth Soln) 1 drop RIGHT EYE DAILY PRN PRN Reason: Dry Eye Stop: 11/25/18 08:48 Last Admin: 09/27/18 22:21 Dose: 1 drop Bisacodyl (Dulcolax 10 Mg Supp) 10 mg RC DAILY PRN PRN Reason: Constipation Stop: 11/16/18 07:46 Cyclobenzaprine HCl (Flexeril) 10 mg PO TID RYAN Stop: 11/16/18 08:59 Last Admin: 09/28/18 08:27 Dose: 10 mg Dexamethasone Sodium Phosphate (Decadron) 2 mg IVP Q12HR RYAN Stop: 11/27/18 08:59 Last Admin: 09/28/18 08:27 Dose: 2 mg Divalproex Sodium (Depakote Er) 1,500 mg PO HS RYAN; Protocol Stop: 11/15/18 21:49 Last Admin: 09/27/18 20:31 Dose: 1,500 mg Docusate Sodium (Colace) 200 mg PO BID [facility] Stop: 11/19/18 16:59 Last Admin: 09/28/18 08:27 Dose: 200 mg Levetiracetam (Keppra) 500 mg PO BID [facility] Stop: 11/17/18 08:59 Last Admin: 09/28/18 08:27 Dose: 500 mg [place] Citrate (Eskalith) 800 mg PO HS [facility]; Protocol Stop: 11/18/18 20:59 Last Admin: 09/27/18 20:32 Dose: 800 mg Magnesium Hydroxide (Milk Of Magnesia) 30 ml PO HS PRN PRN Reason: Constipation Stop: 11/19/18 15:18 Last Admin: 09/21/18 08:28 Dose: 30 ml Morphine Sulfate (Morphine) 2 mg IVP Q4HR PRN PRN Reason: Pain (Severe) Stop: 11/15/18 18:04 Last Admin: 09/27/18 22:24 Dose: 2 mg Morphine Sulfate (Morphine) 1 mg IVP Q4HR PRN PRN Reason: Pain (Moderate) Stop: 11/15/18 18:03 Last Admin: 09/28/18 08:27 Dose: 1 mg Ondansetron HCl (Zofran) 4 mg IV Q6H PRN PRN Reason: Nausea / Vomiting Stop: 11/15/18 18:05 Quetiapine Fumarate (Seroquel Xr) 800 mg PO HS RYAN; Protocol Stop: 11/18/18 20:59 Last Admin: 09/27/18 20:32 Dose: 800 mg Temazepam (Restoril) 15 mg PO HS PRN; Protocol PRN Reason: Insomnia Stop: 11/16/18 11:11 Last Admin: 09/25/18 00:57 Dose: 15 mg General: Alert HEENT: Atraumatic Neck: Supple Cardiovascular: Normal S1 Lungs: Clear to auscultation Abdomen: Bowel sounds, Soft Extremities: Pulses (normal) Neurological: Other (left hemiplegia) Assessment/Plan - Assessment Assessment: 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 Hypertension Diabetes mellitus type 2 Hyperlipidemia Seizure disorder - Plan Plan: Continue physical therapy awaking brain biopsy report awaiting placement Nutritional Asmnt/Malnutr-PDOC - Dietary Evaluation Malnutrition Findings (Please click <Entered> for more info): Nutritional Asmnt/Malnutrition Start: 09/19/18 11: 38 Text: Status: Complete Freq: Protocol: Document 09/19/18 11:39 ARANZAShweta (Rec: 09/19/18 11:47 HALEY SHANNON- FNS1) Nutritional Asmnt/Malnutrition Patient General Information Nutritional Screening Moderate Risk Diagnosis Syncope R/O TIA, cardiac arrythmias Pertinent Medical Hx/Surgical Hx HTN, diabetes, dyslipidemia, seizure, psych disorder Subjective Information Patient states his appetite is good and he has gained 10lb over the past few months because his appetite is so good. States he can tolerate all diet texture, no problems chewing or swallowing. Current Diet Order/ Nutrition Support Low cholesterol Patient / S.O Not Indicated Pertinent Medications Dulcolax, Zofran Pertinent Labs (09/16) Albumin 3.8, TAG 156 Nutritional Hx/Data Height 1.75 m Height (Calculated Centimeters) 175.3 Current Weight (lbs) 84.368 kg Weight (Calculated Kilograms) 84.4 Weight (Calculated Grams) 32394.2 [place] Body Weight 160 % [place] Body Weight 116 Body Mass Index (BMI) 27.4 Recent Weight Change No Weight Status Overweight GI Symptoms GI Symptoms None Last BM none noted since admission Difficult in: None Food Allergies No Cultural/Ethnic/Denominational Belief none indicated Usual diet at home unknown Skin Integrity/Comment: [place] 16, Intact, dilan/ incision on right upper head Current %PO Good (75-100%) Estimated Nutritional Goals BEE in Kcals: Using Current wt Calories/Kcals/Kg 22-27 kcal/kg using CBW 84.5 kg Kcals Calculated 5595-4114 kcal/day Protein: Using Current wt Protein g/k.8-1 gm/kg Protein Calculated 70-85 gm/day Fluid: ml ~3404-0795 ml/day Nutritional Problem 1. Problem Problem No nutrition diagnosis at this time Intervention/Recommendation Comments 1. Continue low cholesterol diet as tolerated by patient. Expected Outcomes/Goals Expected Outcomes/Goals Oral intake >75% of meals, weight stable, nutrition related labs WNL
[2018-09-28] MEDS: Lithium Citrate 300 mg/5 mL Soln UDC PO SCH (20:34)
--- NOTE | 2018-09-28 22:30 | Progress Notes ---
DATE: 09/28/2018 SUBJECTIVE: Case was discussed with staff of the patient, reviewed records. The patient continues to be in the telemetry. The patient reports that he is awaiting on the specimen. He is okay from a psychiatric point. He sleeps well. He eats well. He denies any current intent to harm himself or anybody. He denies any auditory or visual hallucinations. He is sleeping well. He is eating well. The patient will follow up with his psychiatrist upon discharge. Thank you very much for allowing me to participate in the care of this most interesting gentleman. JOB# [id number]
--- NOTE | 2018-09-29 02:10 | Progress Notes ---
DATE: 09/28/2018 NEUROLOGY PROGRESS NOTE SUBJECTIVE: The patient is in bed, awake, alert, talking. No seizures. Left-sided weakness as before, moving right side okay. Headache on and off. MEDICATIONS: Flexeril, Decadron 4 mg every 12 hours, Depakote 1500 at bedtime, Keppra 500 b.i.d., lithium, morphine p.r.n., Seroquel, and temazepam. OBJECTIVE: VITAL SIGNS: Temperature 98.8, blood pressure 110/61, and pulse is around 68. NECK: Supple. No neck bruits. CARDIOVASCULAR: Heart sounds S1, S2. RESPIRATORY: Lungs clear. NEUROLOGIC: The patient is awake, answers questions. Left hemiplegia. The patient's right side good movement and good strength. INVESTIGATIONS: Repeat CT scan done on 09/23/2018 showed a tumor on the right side, seems to be less edema than before, 3 mm shift. ASSESSMENT: 1. Intracranial lesion. Biopsy is still pending. 2 The patient continue with seizure medication. 3. Psychosis. MANAGEMENT: The patient will continue present treatment. Gradually reduce the Decadron. The patient will need the neurosurgical and neuro-oncology services. I have discussed the case with the patient's daughter. JOB# [id number]
[2018-09-29] MEDS: Morphine Sulfate 2 mg/mL 1mL Syr IVP PRN ×3 (02:38→16:14)
[2018-09-29] MEDS: Dexamethasone Sodium Phos 4 mg/mL Vial IVP SCH ×2 (08:31→20:13)
--- NOTE | 2018-09-29 11:20 | General Progress Note ---
Subjective - Review of Systems Service Date: 09/29/18 Subjective: Patient has no complaint of headache dizziness awaiting biopsy report patient has weakness on the left side Objective - Results Result Diagrams: 09/26/18 05:27 09/26/18 05:27 Recent Labs: Laboratory Last Values WBC 8.3 Th/cmm (4.8-10.8) 09/26/18 05:27 RBC 4.84 Mil/cmm (4.30-5.70) 09/26/18 05:27 Hgb 14.5 gm/dL (12-16) 09/26/18 05:27 Hct 43.1 % (41.0-60) 09/26/18 05:27 MCV 88.9 fl (80-99) 09/26/18 05:27 MCH 30.0 pg (26.0-30.0) 09/26/18 05:27 MCHC Differential 33.7 pg (28.0-36.0) 09/26/18 05:27 RDW 12.3 % (11.5-20.0) 09/26/18 05:27 Plt Count 247 Th/cmm (150-400) 09/26/18 05:27 MPV 7.6 fl 09/26/18 05:27 Add Manual Diff YES 09/23/18 04:54 Neutrophils % 78.5 % (40.0-80.0) 09/26/18 05:27 Band Neutrophils % 6 % (0-10) 09/23/18 04:54 Lymphocytes % 16.0 % (20.0-50.0) L 09/26/18 05:27 Monocytes % 4.2 % (2.0-10.0) 09/26/18 05:27 Eosinophils % 0.6 % (0.0-5.0) 09/26/18 05:27 Basophils % 0.7 % (0.0-2.0) 09/26/18 05:27 Neutrophils (Manual) 82 % (40-80) H 09/23/18 04:54 Lymphocytes 8 % (20-50) L 09/23/18 04:54 Monocytes 4 % (2-10) 09/23/18 04:54 Platelet Estimate ADEQUATE (NORMAL) 09/23/18 04:54 PT 9.9 SECONDS (9.5-11.5) 09/16/18 10:00 INR 0.95 (0.5-1.4) 09/16/18 10:00 Sodium 139 mEq/L (136-145) 09/26/18 05:27 Potassium 4.2 mEq/L (3.5-5.1) 09/26/18 05:27 Chloride 103 mEq/L (98-107) 09/26/18 05:27 Carbon Dioxide 26.7 mEq/L (21.0-31.0) 09/26/18 05:27 Anion Gap 13.5 (7.0-16.0) 09/26/18 05:27 BUN 17 mg/dL (7-25) 09/26/18 05:27 Creatinine 0.6 mg/dL (0.7-1.3) L 09/26/18 05:27 Est GFR ( Amer) > 60.0 ml/min (>90) 09/26/18 05:27 Est GFR (Non-Af Amer) > 60.0 ml/min 09/26/18 05:27 BUN/Creatinine Ratio 28.3 09/26/18 05:27 Glucose 123 mg/dL (70-105) H 09/26/18 05:27 Calcium 9.8 mg/dL (8.6-10.3) 09/26/18 05:27 Total Bilirubin 0.4 mg/dL (0.3-1.0) 09/22/18 04:40 AST 9 U/L (13-39) L 09/22/18 04:40 ALT 12 U/L (7-52) 09/22/18 04:40 Alkaline Phosphatase 60 U/L (34-104) 09/22/18 04:40 Creatine Kinase 18 U/L (30-223) L 09/16/18 10:00 Troponin I 0.01 ng/mL (0.01-0.05) 09/16/18 10:00 B-Natriuretic Peptide 5.2 pg/mL (5.0-100.0) 09/16/18 10:00 Total Protein 6.4 gm/dL (6.0-8.3) 09/22/18 04:40 Albumin 3.6 gm/dL (4.2-5.5) L 09/22/18 04:40 Globulin 2.8 gm/dL 09/22/18 04:40 Albumin/Globulin Ratio 1.3 (1.0-1.8) 09/22/18 04:40 Triglycerides 156 mg/dL (<150) H 09/16/18 10:00 Cholesterol 152 mg/dL (<200) 09/16/18 10:00 LDL Cholesterol Direct 96 mg/dL (75-193) 09/16/18 10:00 HDL Cholesterol 37 mg/dL (23-92) 09/16/18 10:00 Valproic Acid 92.2 ug/mL (50.0-100.0) 09/23/18 04:54 [place] 0.24 mmol/L (0.5-1.0) L 09/27/18 05:25 - Physical Exam Vitals and I&O: Vital Signs Temp 96.4 F 09/29/18 08:00 Pulse 61 09/29/18 08:00 Resp 18 09/29/18 08:00 BP 108/65 09/29/18 08:00 Pulse Ox 99 09/29/18 08:00 Intake & Output 09/28/18 09/29/18 09/29/18 18:59 06:59 18:59 Intake Total 900 480 Balance 900 480 Weight (lbs) 92.079 kg 94.517 kg Intake: Oral 900 480 Other: # Voids 4 2 # Bowel Movements 1 Weight Source Bedscale Bedscale Active Medications: Current Medications Artificial Tears (Artificial Tears Ophth Soln) 1 drop RIGHT EYE DAILY PRN PRN Reason: Dry Eye Stop: 11/25/18 08:48 Last Admin: 09/27/18 22:21 Dose: 1 drop Bisacodyl (Dulcolax 10 Mg Supp) 10 mg RC DAILY PRN PRN Reason: Constipation Stop: 11/16/18 07:46 Cyclobenzaprine HCl (Flexeril) 10 mg PO TID RYAN Stop: 11/16/18 08:59 Last Admin: 09/29/18 08:31 Dose: 10 mg Dexamethasone Sodium Phosphate (Decadron) 2 mg IVP Q12HR RYAN Stop: 11/27/18 08:59 Last Admin: 09/29/18 08:31 Dose: 2 mg Divalproex Sodium (Depakote Er) 1,500 mg PO HS RYAN; Protocol Stop: 11/15/18 21:49 Last Admin: 09/28/18 20:33 Dose: 1,500 mg Docusate Sodium (Colace) 200 mg PO BID [facility] Stop: 11/19/18 16:59 Last Admin: 09/29/18 08:31 Dose: 200 mg Levetiracetam (Keppra) 500 mg PO BID [facility] Stop: 11/17/18 08:59 Last Admin: 09/29/18 08:30 Dose: 500 mg [place] Citrate (Eskalith) 800 mg PO HS [facility]; Protocol Stop: 11/18/18 20:59 Last Admin: 09/28/18 20:34 Dose: 800 mg Magnesium Hydroxide (Milk Of Magnesia) 30 ml PO HS PRN PRN Reason: Constipation Stop: 11/19/18 15:18 Last Admin: 09/21/18 08:28 Dose: 30 ml Morphine Sulfate (Morphine) 2 mg IVP Q4HR PRN PRN Reason: Pain (Severe) Stop: 11/15/18 18:04 Last Admin: 09/29/18 02:38 Dose: 2 mg Morphine Sulfate (Morphine) 1 mg IVP Q4HR PRN PRN Reason: Pain (Moderate) Stop: 11/15/18 18:03 Last Admin: 09/28/18 08:27 Dose: 1 mg Ondansetron HCl (Zofran) 4 mg IV Q6H PRN PRN Reason: Nausea / Vomiting Stop: 11/15/18 18:05 Quetiapine Fumarate (Seroquel Xr) 800 mg PO HS [facility]; Protocol Stop: 11/18/18 20:59 Last Admin: 09/28/18 20:35 Dose: 800 mg Temazepam (Restoril) 15 mg PO HS PRN; Protocol PRN Reason: Insomnia Stop: 11/16/18 11:11 Last Admin: 09/28/18 23:26 Dose: 15 mg General: Alert HEENT: Atraumatic Neck: Supple Cardiovascular: Normal S1 Lungs: Clear to auscultation Abdomen: Bowel sounds, Soft Extremities: Pulses (normal) Neurological: Other (left hemiplegia) Assessment/Plan - Assessment Assessment: 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 Hypertension Diabetes mellitus type 2 Hyperlipidemia Seizure disorder - Plan Plan: Continue physical therapy awaking brain biopsy report awaiting placement Nutritional Asmnt/Malnutr-PDOC - Dietary Evaluation Malnutrition Findings (Please click <Entered> for more info): Nutritional Asmnt/Malnutrition Start: 09/19/18 11: 38 Text: Status: Complete Freq: Protocol: Document 09/19/18 11:39 HALEY (Rec: 09/19/18 11:47 HALEY [email or web address]) Nutritional Asmnt/Malnutrition Patient General Information Nutritional Screening Moderate Risk Diagnosis Syncope R/O TIA, cardiac arrythmias Pertinent Medical Hx/Surgical Hx HTN, diabetes, dyslipidemia, seizure, psych disorder Subjective Information Patient states his appetite is good and he has gained 10lb over the past few months because his appetite is so good. States he can tolerate all diet texture, no problems chewing or swallowing. Current Diet Order/ Nutrition Support Low cholesterol Patient / S.O Not Indicated Pertinent Medications Dulcolax, Zofran Pertinent Labs (09/16) Albumin 3.8, TAG 156 Nutritional Hx/Data Height 1.75 m Height (Calculated Centimeters) 175.3 Current Weight (lbs) 84.368 kg Weight (Calculated Kilograms) 84.4 Weight (Calculated Grams) 53678.2 [place] Body Weight 160 % [place] Body Weight 116 Body Mass Index (BMI) 27.4 Recent Weight Change No Weight Status Overweight GI Symptoms GI Symptoms None Last BM none noted since admission Difficult in: None Food Allergies No Cultural/Ethnic/Hinduism Belief none indicated Usual diet at home unknown Skin Integrity/Comment: Connor 16, Intact, dilan/ incision on right upper head Current %PO Good (75-100%) Estimated Nutritional Goals BEE in Kcals: Using Current wt Calories/Kcals/Kg 22-27 kcal/kg using CBW 84.5 kg Kcals Calculated 8029-9179 kcal/day Protein: Using Current wt Protein g/k.8-1 gm/kg Protein Calculated 70-85 gm/day Fluid: ml ~3522-4137 ml/day Nutritional Problem 1. Problem Problem No nutrition diagnosis at this time Intervention/Recommendation Comments 1. Continue low cholesterol diet as tolerated by patient. Expected Outcomes/Goals Expected Outcomes/Goals Oral intake >75% of meals, weight stable, nutrition related labs WNL
--- NOTE | 2018-09-29 16:09 | General Progress Note ---
Subjective - Review of Systems Service Date: 09/29/18 Subjective: No SZ . headache unchanged. left arm weakness, left leg weak. Objective - Results Result Diagrams: 09/26/18 05:27 09/26/18 05:27 Recent Labs: Laboratory Last Values WBC 8.3 Th/cmm (4.8-10.8) 09/26/18 05:27 RBC 4.84 Mil/cmm (4.30-5.70) 09/26/18 05:27 Hgb 14.5 gm/dL (12-16) 09/26/18 05:27 Hct 43.1 % (41.0-60) 09/26/18 05:27 MCV 88.9 fl (80-99) 09/26/18 05:27 MCH 30.0 pg (26.0-30.0) 09/26/18 05:27 MCHC Differential 33.7 pg (28.0-36.0) 09/26/18 05:27 RDW 12.3 % (11.5-20.0) 09/26/18 05:27 Plt Count 247 Th/cmm (150-400) 09/26/18 05:27 MPV 7.6 fl 09/26/18 05:27 Add Manual Diff YES 09/23/18 04:54 Neutrophils % 78.5 % (40.0-80.0) 09/26/18 05:27 Band Neutrophils % 6 % (0-10) 09/23/18 04:54 Lymphocytes % 16.0 % (20.0-50.0) L 09/26/18 05:27 Monocytes % 4.2 % (2.0-10.0) 09/26/18 05:27 Eosinophils % 0.6 % (0.0-5.0) 09/26/18 05:27 Basophils % 0.7 % (0.0-2.0) 09/26/18 05:27 Neutrophils (Manual) 82 % (40-80) H 09/23/18 04:54 Lymphocytes 8 % (20-50) L 09/23/18 04:54 Monocytes 4 % (2-10) 09/23/18 04:54 Platelet Estimate ADEQUATE (NORMAL) 09/23/18 04:54 PT 9.9 SECONDS (9.5-11.5) 09/16/18 10:00 INR 0.95 (0.5-1.4) 09/16/18 10:00 Sodium 139 mEq/L (136-145) 09/26/18 05:27 Potassium 4.2 mEq/L (3.5-5.1) 09/26/18 05:27 Chloride 103 mEq/L (98-107) 09/26/18 05:27 Carbon Dioxide 26.7 mEq/L (21.0-31.0) 09/26/18 05:27 Anion Gap 13.5 (7.0-16.0) 09/26/18 05:27 BUN 17 mg/dL (7-25) 09/26/18 05:27 Creatinine 0.6 mg/dL (0.7-1.3) L 09/26/18 05:27 Est GFR ( Amer) > 60.0 ml/min (>90) 09/26/18 05:27 Est GFR (Non-Af Amer) > 60.0 ml/min 09/26/18 05:27 BUN/Creatinine Ratio 28.3 09/26/18 05:27 Glucose 123 mg/dL (70-105) H 09/26/18 05:27 Calcium 9.8 mg/dL (8.6-10.3) 09/26/18 05:27 Total Bilirubin 0.4 mg/dL (0.3-1.0) 09/22/18 04:40 AST 9 U/L (13-39) L 09/22/18 04:40 ALT 12 U/L (7-52) 09/22/18 04:40 Alkaline Phosphatase 60 U/L (34-104) 09/22/18 04:40 Creatine Kinase 18 U/L (30-223) L 09/16/18 10:00 Troponin I 0.01 ng/mL (0.01-0.05) 09/16/18 10:00 B-Natriuretic Peptide 5.2 pg/mL (5.0-100.0) 09/16/18 10:00 Total Protein 6.4 gm/dL (6.0-8.3) 09/22/18 04:40 Albumin 3.6 gm/dL (4.2-5.5) L 09/22/18 04:40 Globulin 2.8 gm/dL 09/22/18 04:40 Albumin/Globulin Ratio 1.3 (1.0-1.8) 09/22/18 04:40 Triglycerides 156 mg/dL (<150) H 09/16/18 10:00 Cholesterol 152 mg/dL (<200) 09/16/18 10:00 LDL Cholesterol Direct 96 mg/dL (75-193) 09/16/18 10:00 HDL Cholesterol 37 mg/dL (23-92) 09/16/18 10:00 Valproic Acid 92.2 ug/mL (50.0-100.0) 09/23/18 04:54 [place] 0.24 mmol/L (0.5-1.0) L 09/27/18 05:25 - Physical Exam Vitals and I&O: Vital Signs Temp 98.1 F 09/29/18 15:46 Pulse 64 09/29/18 15:46 Resp 18 09/29/18 15:46 BP 111/71 09/29/18 15:46 Pulse Ox 95 09/29/18 15:46 Intake & Output 09/28/18 09/29/18 09/29/18 18:59 06:59 18:59 Intake Total 900 480 Balance 900 480 Weight (lbs) 92.079 kg 94.517 kg Intake: Oral 900 480 Other: # Voids 4 2 # Bowel Movements 1 Weight Source Bedscale Bedscale Active Medications: Current Medications Artificial Tears (Artificial Tears Ophth Soln) 1 drop RIGHT EYE DAILY PRN PRN Reason: Dry Eye Stop: 11/25/18 08:48 Last Admin: 09/27/18 22:21 Dose: 1 drop Bisacodyl (Dulcolax 10 Mg Supp) 10 mg RC DAILY PRN PRN Reason: Constipation Stop: 11/16/18 07:46 Cyclobenzaprine HCl (Flexeril) 10 mg PO TID RYAN Stop: 11/16/18 08:59 Last Admin: 09/29/18 14:59 Dose: Not Given Dexamethasone Sodium Phosphate (Decadron) 2 mg IVP Q12HR [facility] Stop: 11/27/18 08:59 Last Admin: 09/29/18 08:31 Dose: 2 mg Divalproex Sodium (Depakote Er) 1,500 mg PO HS RYAN; Protocol Stop: 11/15/18 21:49 Last Admin: 09/28/18 20:33 Dose: 1,500 mg Docusate Sodium (Colace) 200 mg PO BID [facility] Stop: 11/19/18 16:59 Last Admin: 09/29/18 08:31 Dose: 200 mg Levetiracetam (Keppra) 500 mg PO BID [facility] Stop: 11/17/18 08:59 Last Admin: 09/29/18 08:30 Dose: 500 mg [place] Citrate (Eskalith) 800 mg PO HS [facility]; Protocol Stop: 11/18/18 20:59 Last Admin: 09/28/18 20:34 Dose: 800 mg Magnesium Hydroxide (Milk Of Magnesia) 30 ml PO HS PRN PRN Reason: Constipation Stop: 11/19/18 15:18 Last Admin: 09/21/18 08:28 Dose: 30 ml Morphine Sulfate (Morphine) 2 mg IVP Q4HR PRN PRN Reason: Pain (Severe) Stop: 11/15/18 18:04 Last Admin: 09/29/18 11:52 Dose: 2 mg Morphine Sulfate (Morphine) 1 mg IVP Q4HR PRN PRN Reason: Pain (Moderate) Stop: 11/15/18 18:03 Last Admin: 09/28/18 08:27 Dose: 1 mg Ondansetron HCl (Zofran) 4 mg IV Q6H PRN PRN Reason: Nausea / Vomiting Stop: 11/15/18 18:05 Quetiapine Fumarate (Seroquel Xr) 800 mg PO HS RYAN; Protocol Stop: 11/18/18 20:59 Last Admin: 09/28/18 20:35 Dose: 800 mg Temazepam (Restoril) 15 mg PO HS PRN; Protocol PRN Reason: Insomnia Stop: 11/16/18 11:11 Last Admin: 09/28/18 23:26 Dose: 15 mg General: Alert HEENT: Atraumatic Neck: Supple Cardiovascular: Normal S1 Lungs: Clear to auscultation Abdomen: Bowel sounds, Soft Extremities: Pulses (normal) Neurological: Other (left hemiplegia) Assessment/Plan - Assessment Assessment: * Brain tumor with no evidence of mets on CT chest/abd/pelvis. * awaiting path report from [place] on brain tumor biopsy Follow neuro recs and continue decadron tapering dose, awaiting path.. marlon Ayon to retrieve path report from [facility]. Nutritional Asmnt/Malnutr-PDOC - Dietary Evaluation Malnutrition Findings (Please click <Entered> for more info): Nutritional Asmnt/Malnutrition Start: 09/19/18 11: 38 Text: Status: Complete Freq: Protocol: Document 09/19/18 11:39 ARANZABELLA (Rec: 09/19/18 11:47 ARANZABELLA ORTEGA- FNS1) Nutritional Asmnt/Malnutrition Patient General Information Nutritional Screening Moderate Risk Diagnosis Syncope R/O TIA, cardiac arrythmias Pertinent Medical Hx/Surgical Hx HTN, diabetes, dyslipidemia, seizure, psych disorder Subjective Information Patient states his appetite is good and he has gained 10lb over the past few months because his appetite is so good. States he can tolerate all diet texture, no problems chewing or swallowing. Current Diet Order/ Nutrition Support Low cholesterol Patient / S.O Not Indicated Pertinent Medications Dulcolax, Zofran Pertinent Labs (09/16) Albumin 3.8, TAG 156 Nutritional Hx/Data Height 1.75 m Height (Calculated Centimeters) 175.3 Current Weight (lbs) 84.368 kg Weight (Calculated Kilograms) 84.4 Weight (Calculated Grams) 46887.2 [place] Body Weight 160 % [place] Body Weight 116 Body Mass Index (BMI) 27.4 Recent Weight Change No Weight Status Overweight GI Symptoms GI Symptoms None Last BM none noted since admission Difficult in: None Food Allergies No Cultural/Ethnic/Advent Belief none indicated Usual diet at home unknown Skin Integrity/Comment: [place] 16, Intact, dilan/ incision on right upper head Current %PO Good (75-100%) Estimated Nutritional Goals BEE in Kcals: Using Current wt Calories/Kcals/Kg 22-27 kcal/kg using CBW 84.5 kg Kcals Calculated 5353-4059 kcal/day Protein: Using Current wt Protein g/k.8-1 gm/kg Protein Calculated 70-85 gm/day Fluid: ml ~0909-5589 ml/day Nutritional Problem 1. Problem Problem No nutrition diagnosis at this time Intervention/Recommendation Comments 1. Continue low cholesterol diet as tolerated by patient. Expected Outcomes/Goals Expected Outcomes/Goals Oral intake >75% of meals, weight stable, nutrition related labs WNL
--- NOTE | 2018-09-29 17:14 | Internal Medicine Prog Note ---
Internal Medicine Subjective - Subjective Service Date: 09/29/18 Patient is:: awake, verbal, in bed, other (left-sided weakness , no seizure activity ) Per staff patient has:: no adverse event Internal Medicine Objective - Results Result Diagrams: 09/26/18 05:27 09/26/18 05:27 Recent Labs: Laboratory Last Values WBC 8.3 Th/cmm (4.8-10.8) 09/26/18 05:27 RBC 4.84 Mil/cmm (4.30-5.70) 09/26/18 05:27 Hgb 14.5 gm/dL (12-16) 09/26/18 05:27 Hct 43.1 % (41.0-60) 09/26/18 05:27 MCV 88.9 fl (80-99) 09/26/18 05:27 MCH 30.0 pg (26.0-30.0) 09/26/18 05:27 MCHC Differential 33.7 pg (28.0-36.0) 09/26/18 05:27 RDW 12.3 % (11.5-20.0) 09/26/18 05:27 Plt Count 247 Th/cmm (150-400) 09/26/18 05:27 MPV 7.6 fl 09/26/18 05:27 Add Manual Diff YES 09/23/18 04:54 Neutrophils % 78.5 % (40.0-80.0) 09/26/18 05:27 Band Neutrophils % 6 % (0-10) 09/23/18 04:54 Lymphocytes % 16.0 % (20.0-50.0) L 09/26/18 05:27 Monocytes % 4.2 % (2.0-10.0) 09/26/18 05:27 Eosinophils % 0.6 % (0.0-5.0) 09/26/18 05:27 Basophils % 0.7 % (0.0-2.0) 09/26/18 05:27 Neutrophils (Manual) 82 % (40-80) H 09/23/18 04:54 Lymphocytes 8 % (20-50) L 09/23/18 04:54 Monocytes 4 % (2-10) 09/23/18 04:54 Platelet Estimate ADEQUATE (NORMAL) 09/23/18 04:54 PT 9.9 SECONDS (9.5-11.5) 09/16/18 10:00 INR 0.95 (0.5-1.4) 09/16/18 10:00 Sodium 139 mEq/L (136-145) 09/26/18 05:27 Potassium 4.2 mEq/L (3.5-5.1) 09/26/18 05:27 Chloride 103 mEq/L (98-107) 09/26/18 05:27 Carbon Dioxide 26.7 mEq/L (21.0-31.0) 09/26/18 05:27 Anion Gap 13.5 (7.0-16.0) 09/26/18 05:27 BUN 17 mg/dL (7-25) 09/26/18 05:27 Creatinine 0.6 mg/dL (0.7-1.3) L 09/26/18 05:27 Est GFR ( Amer) > 60.0 ml/min (>90) 09/26/18 05:27 Est GFR (Non-Af Amer) > 60.0 ml/min 09/26/18 05:27 BUN/Creatinine Ratio 28.3 09/26/18 05:27 Glucose 123 mg/dL (70-105) H 09/26/18 05:27 Calcium 9.8 mg/dL (8.6-10.3) 09/26/18 05:27 Total Bilirubin 0.4 mg/dL (0.3-1.0) 09/22/18 04:40 AST 9 U/L (13-39) L 09/22/18 04:40 ALT 12 U/L (7-52) 09/22/18 04:40 Alkaline Phosphatase 60 U/L (34-104) 09/22/18 04:40 Creatine Kinase 18 U/L (30-223) L 09/16/18 10:00 Troponin I 0.01 ng/mL (0.01-0.05) 09/16/18 10:00 B-Natriuretic Peptide 5.2 pg/mL (5.0-100.0) 09/16/18 10:00 Total Protein 6.4 gm/dL (6.0-8.3) 09/22/18 04:40 Albumin 3.6 gm/dL (4.2-5.5) L 09/22/18 04:40 Globulin 2.8 gm/dL 09/22/18 04:40 Albumin/Globulin Ratio 1.3 (1.0-1.8) 09/22/18 04:40 Triglycerides 156 mg/dL (<150) H 09/16/18 10:00 Cholesterol 152 mg/dL (<200) 09/16/18 10:00 LDL Cholesterol Direct 96 mg/dL (75-193) 09/16/18 10:00 HDL Cholesterol 37 mg/dL (23-92) 09/16/18 10:00 Valproic Acid 92.2 ug/mL (50.0-100.0) 09/23/18 04:54 [place] 0.24 mmol/L (0.5-1.0) L 09/27/18 05:25 - Physical Exam Vitals and I&O: Vital Signs Temp 98.1 F 09/29/18 15:46 Pulse 64 09/29/18 15:46 Resp 18 09/29/18 15:46 BP 111/71 09/29/18 15:46 Pulse Ox 95 09/29/18 15:46 Intake & Output 09/28/18 09/29/18 09/29/18 18:59 06:59 18:59 Intake Total 900 480 Balance 900 480 Weight (lbs) 203 lb 208 lb 6 oz Intake: Oral 900 480 Other: # Voids 4 2 # Bowel Movements 1 Weight Source Bedscale Bedscale Active Medications: Current Medications Artificial Tears (Artificial Tears Ophth Soln) 1 drop RIGHT EYE DAILY PRN PRN Reason: Dry Eye Stop: 11/25/18 08:48 Last Admin: 09/27/18 22:21 Dose: 1 drop Bisacodyl (Dulcolax 10 Mg Supp) 10 mg RC DAILY PRN PRN Reason: Constipation Stop: 11/16/18 07:46 Cyclobenzaprine HCl (Flexeril) 10 mg PO TID RYAN Stop: 11/16/18 08:59 Last Admin: 09/29/18 14:59 Dose: Not Given Dexamethasone Sodium Phosphate (Decadron) 2 mg IVP Q12HR [facility] Stop: 11/27/18 08:59 Last Admin: 09/29/18 08:31 Dose: 2 mg Divalproex Sodium (Depakote Er) 1,500 mg PO HS RYAN; Protocol Stop: 11/15/18 21:49 Last Admin: 09/28/18 20:33 Dose: 1,500 mg Docusate Sodium (Colace) 200 mg PO BID RYAN Stop: 11/19/18 16:59 Last Admin: 09/29/18 16:14 Dose: 200 mg Levetiracetam (Keppra) 500 mg PO BID [facility]AN Stop: 11/17/18 08:59 Last Admin: 09/29/18 16:14 Dose: 500 mg [place] Citrate (Eskalith) 800 mg PO HS RYAN; Protocol Stop: 11/18/18 20:59 Last Admin: 09/28/18 20:34 Dose: 800 mg Magnesium Hydroxide (Milk Of Magnesia) 30 ml PO HS PRN PRN Reason: Constipation Stop: 11/19/18 15:18 Last Admin: 09/21/18 08:28 Dose: 30 ml Morphine Sulfate (Morphine) 2 mg IVP Q4HR PRN PRN Reason: Pain (Severe) Stop: 11/15/18 18:04 Last Admin: 09/29/18 16:14 Dose: 2 mg Morphine Sulfate (Morphine) 1 mg IVP Q4HR PRN PRN Reason: Pain (Moderate) Stop: 11/15/18 18:03 Last Admin: 09/28/18 08:27 Dose: 1 mg Ondansetron HCl (Zofran) 4 mg IV Q6H PRN PRN Reason: Nausea / Vomiting Stop: 11/15/18 18:05 Quetiapine Fumarate (Seroquel Xr) 800 mg PO HS RYAN; Protocol Stop: 11/18/18 20:59 Last Admin: 09/28/18 20:35 Dose: 800 mg Temazepam (Restoril) 15 mg PO HS PRN; Protocol PRN Reason: Insomnia Stop: 11/16/18 11:11 Last Admin: 09/28/18 23:26 Dose: 15 mg General: alert HEENT: NC/AT Neck: Supple Lungs: CTAB Cardiovascular: RRR, Normal S1, Normal S2 Abdomen: soft, non-tender Extremities: clear Neurological: no change, other (left-sided weakness) Internal Medicine Assmt/Plan - Assessment Assessment: brain tumor with mass effect syncopal episode h/o htn h/o hyperlipidemia h/o seizures h/o dementia h/o peptic ulcer disease - Plan Plan: fall precautions appreciate neuro recc follow up labs in am Nutritional Asmnt/Malnutr-PDOC - Dietary Evaluation Malnutrition Findings (Please click <Entered> for more info): Nutritional Asmnt/Malnutrition Start: 09/19/18 11: 38 Text: Status: Complete Freq: Protocol: Document 09/19/18 11:39 HALEY (Rec: 09/19/18 11:47 DELFINONAYABELLA ORTEGA- FNS1) Nutritional Asmnt/Malnutrition Patient General Information Nutritional Screening Moderate Risk Diagnosis Syncope R/O TIA, cardiac arrythmias Pertinent Medical Hx/Surgical Hx HTN, diabetes, dyslipidemia, seizure, psych disorder Subjective Information Patient states his appetite is good and he has gained 10lb over the past few months because his appetite is so good. States he can tolerate all diet texture, no problems chewing or swallowing. Current Diet Order/ Nutrition Support Low cholesterol Patient / S.O Not Indicated Pertinent Medications Dulcolax, Zofran Pertinent Labs (09/16) Albumin 3.8, TAG 156 Nutritional Hx/Data Height 5 ft 9 in Height (Calculated Centimeters) 175.3 Current Weight (lbs) 186 lb Weight (Calculated Kilograms) 84.4 Weight (Calculated Grams) 33437.2 [place] Body Weight 160 % [place] Body Weight 116 Body Mass Index (BMI) 27.4 Recent Weight Change No Weight Status Overweight GI Symptoms GI Symptoms None Last BM none noted since admission Difficult in: None Food Allergies No Cultural/Ethnic/Adventist Belief none indicated Usual diet at home unknown Skin Integrity/Comment: [place] 16, Intact, dilan/ incision on right upper head Current %PO Good (75-100%) Estimated Nutritional Goals BEE in Kcals: Using Current wt Calories/Kcals/Kg 22-27 kcal/kg using CBW 84.5 kg Kcals Calculated 2577-5725 kcal/day Protein: Using Current wt Protein g/k.8-1 gm/kg Protein Calculated 70-85 gm/day Fluid: ml ~9551-0298 ml/day Nutritional Problem 1. Problem Problem No nutrition diagnosis at this time Intervention/Recommendation Comments 1. Continue low cholesterol diet as tolerated by patient. Expected Outcomes/Goals Expected Outcomes/Goals Oral intake >75% of meals, weight stable, nutrition related labs WNL
[2018-09-29] MEDS: Lithium Citrate 300 mg/5 mL Soln UDC PO SCH (20:13)
--- NOTE | 2018-10-05 12:49 | Discharge Summary ---
DATE OF DISCHARGE: 09/29/2018 HISTORY AND HOSPITAL COURSE: The patient was admitted on 09/16/2018. The patient was discharged to [facility] on 09/29/2018. Apparently, this patient was admitted with a history of syncopal episode, history of falling, hitting his head and the patient known to have brain tumor and biopsy done, spent a long time waiting for the biopsy report. The patient also was admitted for ____. The patient has hyperlipidemia and peptic ulcer disease. The patient was worked up and Dr. Costello and Dr. Donohue saw the patient. Dr. Costello felt that the patient ____ wanted the patient to go to [facility], waiting for his neurological and neurosurgical followup. The patient was sent to [facility] in stable condition where I will be following the patient. FINAL DIAGNOSES: Brain tumor, awaiting for the biopsy report, history of hypertension, history of hyperlipidemia, history of seizures and dementia and peptic ulcer disease. MEDICATIONS: See the reconciliation sheet. ACTIVITY: As tolerated. DIET: As noted in the ____ sheet. JOB# [id number]
== END 2018-09-29 20:20 | DRG 55 ==
LOC: ER 09:23 → TELE 15:15 → MSI 09-23 21:20
PROVIDERS: ADMIT Internal Medicine; ATTEND Internal Medicine
DX: D49.6 Neoplasm of unspecified behavior of brain (principal); E87.1 Hypo-osmolality and hyponatremia; F03.91 Unspecified dementia, unspecified severity, with behavioral disturbance; I69.954 Hemiplegia and hemiparesis following unspecified cerebrovascular disease affecting left non-dominant side; I10 Essential (primary) hypertension; E78.5 Hyperlipidemia, unspecified; F31.9 Bipolar disorder, unspecified; E86.0 Dehydration; W18.30XA Fall on same level, unspecified, initial encounter; K21.9 Gastro-esophageal reflux disease without esophagitis; G40.909 Epilepsy, unspecified, not intractable, without status epilepticus; Z91.048 Other nonmedicinal substance allergy status; Z82.49 Family history of ischemic heart disease and other diseases of the circulatory system; Z83.2 Family history of diseases of the blood and blood-forming organs and certain disorders involving the immune mechanism; Y93.89 Activity, other specified; Y92.89 Other specified places as the place of occurrence of the external cause; Y99.8 Other external cause status; Z87.11 Personal history of peptic ulcer disease
CPT/HCPCS: 36415-UA; 70450-TC; 71045-TC; 71260-TC; 72125-TC; 80048-TC; 80053-TC; 80061-TC; 80164-TC; 80178-TC; 82550-TC; 83880-TC; 84484-TC; 85007-TC; 85025-TC; 85610-TC; 90732; 93005; 94760; 97530; J1100; J2270; J7030; J8540; Q9967; X3904; Z7610